=== PATIENT | female | born 1950 | race Caucasian/White ===

== ENCOUNTER → 2017-04-03 | Outpatient (CLI) | payer OTHER ==
--- NOTE | 2017-04-03 13:33 | MM ---
Reason for exam: history of breast cancer, mastectomy. Last mammogram was performed 1 year ago. History: Patient is postmenopausal and has history of breast cancer at age 62. Malignant US LT VAD breast biopsy of the left breast, April 28, 2013. Mastectomy of the left breast, 2012. Implants in both breasts, 1992. Excisional biopsy of both breasts, 1992. Physical Findings: Nurse did not find any significant physical abnormalities on exam. MG 3D Diag Mammo Imp W/Cad RT CC and MLO view(s) were taken of the right breast. Prior study comparison: April 02, 2016, right breast MG 3d diag mammo w/cad RT. There are scattered fibroglandular densities. No significant new findings when compared with previous films. These results were verbally communicated with the patient and result sheet given to the patient on 04/03/17. ASSESSMENT: Benign, BI-RAD 2 RECOMMENDATION: Follow-up diagnostic mammogram of the right breast in 1 year.
== END ==
LOC: RADMAMWWP 12:31
PROVIDERS: ATTEND Internal Medicine Hematology & Oncology
DX: Z85.3 Personal history of malignant neoplasm of breast (principal)
CPT/HCPCS: G0206; G0279

== ENCOUNTER → 2017-07-31 | Outpatient (CLI) | payer MEDICARE ==
--- NOTE | 2017-07-31 16:12 | BD ---
EXAMINATION TYPE: MG DEXA axial skeleton. DATE OF EXAM: 07/31/2017 COMPARISON: 2016 CLINICAL HISTORY: osteopenia Height: 5'2 Weight: 165 FRAX RISK QUESTIONS: Alcohol (3 or more units per day): no Family History (Parent hip fracture): no Glucocorticoids (More than 3mos): yes (Ex: prednisone, prednisolone, methylprednisolone, dexamethasone, and hydrocortisone). History of Fracture in Adulthood: no Secondary Osteoporosis: 1. Type 1 Diabetes: no 2. Hyperthyroidism: no 3. Menopause before 45: yes 4. Malnutrition: no 5. Chronic liver disease: no Rheumatoid Arthritis: no Current Tobacco Use: no RISK FACTORS HISTORY OF: Active: Diet low in dairy products/other sources of calcium: Postmenopausal woman: Poor Health: MEDICATIONS: Prednisone or other steroids: How Lon-6 years Additional Medications: COPD, blood pressure, breast cancer Additional History: COPD, breast cancer 2011, EXAM MEASUREMENTS: Bone mineral densitometry was performed using the [employer] System. Bone mineral density as measured about the Lumbar spine is: ----- L1-L4(G/cm2): 1.193 T Score Values are as follows: ----- L2: 0.1 ----- L3: 0.9 ----- L4: 0.2 ----- L1-L4: 0.1 Bone mineral density has: Increased 6.6% since study of: 07/30/2016 Bone mineral density about the R hip (g/cm2): 0.737 Bone mineral density about the L hip (g/cm2): 0.700 T Score values are as follows: -----R Neck: -2.2 -----L Neck: -2.4 -----R Total: -2.2 -----L Total: -2.2 Bone mineral density has: Decreased -2.3% since study of: 07/30/2016 IMPRESSION: Osteopenia (T Score between -2.5 and -1) as noted by T score values: Freeman Hips There is slightly increased risk of fracture and the patient may be considered for treatment. Re-Screen 2-5 years. NOTE: T-SCORE=SD OF THE YOUNG ADULT MEAN.
== END | disposition home or self-care (01) ==
LOC: RADBDWWP 12:56
PROVIDERS: ATTEND Internal Medicine Hematology & Oncology
DX: C50.912 Malignant neoplasm of unspecified site of left female breast (principal); M85.852 Other specified disorders of bone density and structure, left thigh; M85.851 Other specified disorders of bone density and structure, right thigh
CPT/HCPCS: 77080

== ENCOUNTER → 2017-12-24 | Outpatient (CLI) | payer MEDICARE ==
--- NOTE | 2017-12-24 12:33 | CT ---
EXAMINATION TYPE: CT chest wo con DATE OF EXAM: 12/24/2017 COMPARISON: NONE HISTORY: SOB Cough CT DLP: 358.[address] of the chest was performed with lung and mediastinal window settings submitted. The la ck of contrast limits evaluation of the vascular, mediastinal and parenchymal structures including th e upper abdomen. LUNGS: Moderate upper lobe emphysematous changes noted. Parenchymal scarring right upper lobe area of focal nodularity measuring approximately 7.4 mm. Short-term follow-up study is advised in 3 months. No additional nodularity seen. No evidence for focal consolidation or pleural effusion. MEDIASTINUM/MARILYN: Thoracic aorta is of normal caliber with limited evaluation given lack of contrast . The heart is not enlarged. No evidence for mediastinal mass. No lymph nodes greater than 1cm. UPPER ABDOMEN: No significant abnormality is seen. OTHER: No significant other abnormality. Bilateral breast implants in place. IMPRESSION: 1. Right upper lobe postinflammatory scarring with focal area of nodularity as discussed. Short-term follow-up is advised in 3 months. Any outside comparison studies would also be of value. 2. Moderate emphysematous changes.
[2017-12-25 13:16] LABS: Alt. alternata IgE Class CLASS 0; Alternaria alternata IgE <0.35 kU/L (<0.35); Asperg. fumagatus IgE 3.42 kU/L (<0.35); Asperg. fumagatus IgE Class CLASS II; Bermuda Grass IgE <0.35 kU/L (<0.35); Birch(Com.Silvr) IgE <0.35 kU/L (<0.35); Birch(Com.Silvr) IgE Class CLASS 0; Cat Epith & Dander IgE <0.35 kU/L (<0.35); Cat Epith & Dander IgE Class CLASS 0; Clad herbarum IgE <0.35 kU/L (<0.35); Cockroach IgE <0.35 kU/L (<0.35); Cottonwood IgE <0.35 kU/L (<0.35); Dermato. Pteronyssinus IgE <0.35 kU/L (<0.35); Dermato. farinae IgE <0.35 kU/L (<0.35); Dermato. farinae IgE Class CLASS 0; Dog Dander IgE <0.35 kU/L (<0.35); Elm IgE <0.35 kU/L (<0.35); Maple (Box Elder) IgE <0.35 kU/L (<0.35); Maple (Box Elder) IgE Class CLASS 0; Mountain Cedar IgE <0.35 kU/L (<0.35); Mountain Cedar IgE Class CLASS 0; Mouse Urine IgE Class CLASS 0; Nettle IgE <0.35 kU/L (<0.35); Nettle IgE Class CLASS 0; Oak IgE <0.35 kU/L (<0.35); Penicillium notatum IgE Class CLASS I; Rough Marshelder IgE <0.35 kU/L (<0.35); Rough Marshelder IgE Class CLASS 0; Timothy Grass IgE <0.35 kU/L (<0.35); White Ash IgE Class CLASS 0
[2017-12-26 12:24] LABS: Alpha 1 Anti-Trypsin 163 mg/dL (90 - 200)
== END | disposition home or self-care (01) ==
LOC: RADCTMAIN 11:36
PROVIDERS: ATTEND Internal Medicine Pulmonary Disease
DX: J43.9 Emphysema, unspecified (principal); J45.909 Unspecified asthma, uncomplicated; J98.4 Other disorders of lung
CPT/HCPCS: 36415; 71250; 82103; 82104; 82785; 86001; 86003; 86606; 86609

== ENCOUNTER → 2018-07-17 | Outpatient (CLI) | payer MEDICARE ==
--- NOTE | 2018-07-17 14:04 | MM ---
Reason for exam: additional evaluation requested from prior study. Last mammogram was performed 1 year and 3 months ago. History: Patient is postmenopausal and has history of breast cancer at age 62. Malignant US LT VAD breast biopsy of the left breast, April 28, 2013. Mastectomy of the left breast, 2012. Implants in both breasts, 1992. Excisional biopsy of both breasts, 1992. Physical Findings: Nurse did not find any significant physical abnormalities on exam. MG 3D Diag Mammo Imp W/Cad RT CC and MLO view(s) were taken of the right breast. Prior study comparison: April 03, 2017, right breast MG 3d diag mammo imp w/cad RT. April 02, 2016, right breast MG 3d diag mammo w/cad RT. There are scattered fibroglandular densities. Finding: There are typically benign vascular calcifications in the right breast. No significant changes in finding since April 03, 2017 and April 02, 2016. These results were verbally communicated with the patient and result sheet given to the patient on 07/17/18. ASSESSMENT: Benign, BI-RAD 2 RECOMMENDATION: Follow-up diagnostic mammogram of the right breast in 1 year.
== END ==
LOC: RADMAMWWP 12:26
PROVIDERS: ATTEND Family Medicine
DX: Z08 Encounter for follow-up examination after completed treatment for malignant neoplasm (principal); Z85.3 Personal history of malignant neoplasm of breast; Z90.10 Acquired absence of unspecified breast and nipple
CPT/HCPCS: 77065; G0279; 77061

== ENCOUNTER 2018-12-24 13:51 | Observation (INO) | payer MEDICARE ==
[2018-12-24] MEDS ORDERED: methylPREDNISolone SOD SUCCI 125 MG/2 ML VIAL IV STA (14:17)
[2018-12-24] MEDS ORDERED: IPRATROPIUM 0.5 MG/2.5 ML NEBU INHALATION STA (14:17)
--- NOTE | 2018-12-24 14:20 | ED ---
General Adult HPI - General Chief complaint: Shortness of Breath Stated complaint: SOB Time Seen by Provider: 12/24/18 13:55 Source: patient, RN notes reviewed Mode of arrival: wheelchair Limitations: no limitations - History of Present Illness Initial comments: This is a 68-year-old female presents emergency Department complaining of shortness of breath. Patient states for a week is been getting progressively worse per patient states she has a history of COPD. Patient states went to see her primary medical care doctor and anytime she moved from a sitting position it took about 15-20 minutes for her to recuperate from the difficulty breathing. Patient denies any fever chills or cough recently. Patient denies any chest pain. Patient denies any palpitations. Patient denies abdominal pain patient denies nausea vomiting diarrhea. Patient denies any lightheadedness dizziness or near syncopal episode. Patient denies any swelling to the legs or calf tenderness. Patient states she is on 4 L of oxygen at home normally. - Related Data Home Medications Medication Instructions Recorded Confirmed Albuterol Nebulized [Ventolin 2.5 mg INHALATION RT-QID 12/24/18 12/24/18 Nebulized] Albuterol Sulfate [Proair Hfa] 2 puff INHALATION RT-Q4H PRN 12/24/18 12/24/18 Budesonide [Pulmicort] 0.5 mg INHALATION RT-BID 12/24/18 12/24/18 Ferrous Sulfate [Feosol] 325 mg PO DAILY 12/24/18 12/24/18 Glycopyrrolate/Formoterol Fum 2 puff INHALATION RT-BID 12/24/18 12/24/18 [Bevespi Aerosphere Inhaler] Losartan/Hydrochlorothiazide 1 tab PO DAILY 12/24/18 12/24/18 [Losartan-Hctz 100-12.5 mg Tab] Montelukast [Singulair] 10 mg PO DAILY 12/24/18 12/24/18 Nebivolol [Bystolic] 5 mg PO DAILY 12/24/18 12/24/18 Pravastatin Sodium [Pravachol] 40 mg PO HS 12/24/18 12/24/18 Ranitidine HCl [Zantac] 150 mg PO BID 12/24/18 12/24/18 Solifenacin Succinate [Vesicare] 10 mg PO DAILY 12/24/18 12/24/18 amLODIPine [Norvasc] 5 mg PO DAILY 12/24/18 12/24/18 predniSONE 5 mg PO DAILY 12/24/18 12/24/18 Allergies Allergy/AdvReac Type Severity Reaction Status Date / Time No Known Allergies Allergy Verified 12/24/18 14:11 Review of Systems ROS Statement: Those systems with pertinent positive or pertinent negative responses have been documented in the HPI. ROS Other: All systems not noted in ROS Statement are negative. Past Medical History Past Medical History: Cancer, COPD, Hyperlipidemia, Hypertension Additional Past Medical History / Comment(s): BREAST CANCER History of Any Multi-Drug Resistant Organisms: None Reported Additional Past Surgical History / Comment(s): LEFT BREAST MASECTOMY Past Psychological History: No Psychological Hx Reported Smoking Status: Former smoker Past Alcohol Use History: None Reported, Occasional Past Drug Use History: None Reported General Exam - General Exam Comments Initial Comments: GENERAL: Patient is well-developed and well-nourished. Patient is nontoxic and well-h ydrated and is in moderate distress. ENT: Neck is soft and supple. No significant lymphadenopathy is noted. Oropharynx is clear. Moist mucous membranes. Neck has full range of motion without elic iting any pain. EYES: The sclera were anicteric and conjunctiva were pink and moist. Extraocular movements were intact and pupils were equal round and reactive to light. Eyelids were unremarkable. PULMONARY: Patient has diminished breath sounds throughout with occasional wheeze. CARDIOVASCULAR: There is a regular rate and rhythm without any murmurs gallops or rubs. ABDOMEN: Soft and nontender with normal bowel sounds. No palpable organomegaly was noted. There is no palpable pulsatile mass. SKIN: Skin is clear with no lesions or rashes and otherwise unremarkable. NEUROLOGIC: Patient is alert and oriented x3. Cranial nerves II through XII are grossly intact. Motor and sensory are also intact. Normal speech, volume and content. Symmetrical smile. MUSCULOSKELETAL: Normal extremities with adequate strength and full range of motion. No lower extremity swelling or edema. No calf tenderness. LYMPHATICS: No significant lymphadenopathy is noted PSYCHIATRIC: Normal psychiatric evaluation. Limitations: no limitations Course Vital Signs 12/24/18 12/24/18 12/24/18 13:54 14:45 14:53 Temperature 97.9 F Pulse Rate 94 84 86 Respiratory 28 H Rate Blood Pressure 145/81 O2 Sat by Pulse 88 L Oximetry 12/24/18 12/24/18 15:00 15:10 Temperature Pulse Rate 82 71 Respiratory 22 22 Rate Blood Pressure 125/80 137/102 O2 Sat by Pulse 95 96 Oximetry Medical Decision Making - Medical Decision Making EKG shows normal sinus rhythm at 75 bpm MA interval is on a 64 QRS is 92 QT interval 392 QTC is 437. Patient's EKG shows no ST segment elevation or depression or T wave abnormalities are noted. Patient received 3 breathing treatments emergency department as well as steroids. Patient felt improved but still was not close to her baseline according to her. Patient had a chest x-ray done showed no acute abnormality. I spoke with Dr. Sanchez he agreed to admit the patient admitted the patient I talib ontinue albuterol steroids on the floor. - Lab Data Result diagrams: 12/24/18 14:45 12/24/18 14:45 Lab Results 12/24/18 12/24/18 12/24/18 Range/Units 14:45 14:45 14:45 WBC 10.2 (3.8-10.6) k/uL RBC 4.28 (3.80-5.40) m/uL Hgb 13.0 (11.4-16.0) gm/dL Hct 42.1 (34.0-46.0) % MCV 98.4 (80.0-100.0) fL MCH 30.4 (25.0-35.0) pg MCHC 30.9 L (31.0-37.0) g/dL RDW 15.5 (11.5-15.5) % Plt Count 371 (150-450) k/uL Neutrophils % 84 % Lymphocytes % 7 % Monocytes % 6 % Eosinophils % 2 % Basophils % 0 % Neutrophils # 8.5 H (1.3-7.7) k/uL Lymphocytes # 0.7 L (1.0-4.8) k/uL Monocytes # 0.6 (0-1.0) k/uL Eosinophils # 0.2 (0-0.7) k/uL Basophils # 0.0 (0-0.2) k/uL Macrocytosis Slight PT (9.0-12.0) sec INR (<1.2) APTT (22.0-30.0) sec Sodium 136 L (137-145) mmol/L Potassium 4.5 (3.5-5.1) mmol/L Chloride 95 L (98-107) mmol/L Carbon Dioxide 30 (22-30) mmol/L Anion Gap 11 mmol/L BUN 15 (7-17) mg/dL Creatinine 0.43 L (0.52-1.04) mg/dL Est GFR (CKD-EPI)AfAm >90 (>60 ml/min/1.73 sqM) Est GFR (CKD-EPI)NonAf >90 (>60 ml/min/1.73 sqM) Glucose 127 H (74-99) mg/dL Calcium 10.2 (8.4-10.2) mg/dL Magnesium 1.7 (1.6-2.3) mg/dL Total Bilirubin 0.6 (0.2-1.3) mg/dL AST 20 (14-36) U/L ALT 22 (9-52) U/L Alkaline Phosphatase 65 (38-126) U/L Troponin I (0.000-0.034) ng/mL NT-Pro-B Natriuret Pep 109 pg/mL Total Protein 7.2 (6.3-8.2) g/dL Albumin 4.3 (3.5-5.0) g/dL 12/24/18 12/24/18 Range/Units 14:45 14:45 WBC (3.8-10.6) k/uL RBC (3.80-5.40) m/uL Hgb (11.4-16.0) gm/dL Hct (34.0-46.0) % MCV (80.0-100.0) fL MCH (25.0-35.0) pg MCHC (31.0-37.0) g/dL RDW (11.5-15.5) % Plt Count (150-450) k/uL Neutrophils % % Lymphocytes % % Monocytes % % Eosinophils % % Basophils % % Neutrophils # (1.3-7.7) k/uL Lymphocytes # (1.0-4.8) k/uL Monocytes # (0-1.0) k/uL Eosinophils # (0-0.7) k/uL Basophils # (0-0.2) k/uL Macrocytosis PT 10.5 (9.0-12.0) sec INR 1.0 (<1.2) APTT 23.7 (22.0-30.0) sec Sodium (137-145) mmol/L Potassium (3.5-5.1) mmol/L Chloride (98-107) mmol/L Carbon Dioxide (22-30) mmol/L Anion Gap mmol/L BUN (7-17) mg/dL Creatinine (0.52-1.04) mg/dL Est GFR (CKD-EPI)AfAm (>60 ml/min/1.73 sqM) Est GFR (CKD-EPI)NonAf (>60 ml/min/1.73 sqM) Glucose (74-99) mg/dL Calcium (8.4-10.2) mg/dL Magnesium (1.6-2.3) mg/dL Total Bilirubin (0.2-1.3) mg/dL AST (14-36) U/L ALT (9-52) U/L Alkaline Phosphatase (38-126) U/L Troponin I <0.012 (0.000-0.034) ng/mL NT-Pro-B Natriuret Pep pg/mL Total Protein (6.3-8.2) g/dL Albumin (3.5-5.0) g/dL Critical Care Time Critical Care Time: Yes Total Critical Care Time: 35 Disposition Clinical Impression: Acute exacerbation of chronic obstructive airways disease Disposition: ADMITTED IP TO THIS HOSP Referrals: Alex De La Torre MD [Primary Care Provider] - 1-2 days Time of Disposition: 16:08
[2018-12-24 15:06] LABS: Basophils % (A) 0 %; Eosinophils # (A) 0.2 k/uL (0-0.7); Eosinophils % (A) 2 %; HCT 42.1 % (34.0-46.0); Lymphocytes # (A) 0.7 k/uL (1.0-4.8); Lymphocytes % (A) 7 %; MCH 30.4 pg (25.0-35.0); MCHC 30.9 g/dL (31.0-37.0); MCV 98.4 fL (80.0-100.0); Macrocytosis Slight; Mean Platelet Volume 7.4; Monocytes # (A) 0.6 k/uL (0-1.0); Monocytes % (A) 6 %; Neutrophils # (A) 8.5 k/uL (1.3-7.7); Neutrophils % (A) 84 %; Platelet Count 371 k/uL (150-450); RBC 4.28 m/uL (3.80-5.40); RDW 15.5 % (11.5-15.5); WBC 10.2 k/uL (3.8-10.6)
[2018-12-24 15:15] LABS: ALT 22 U/L (9-52); AST 20 U/L (14-36); Albumin 4.3 g/dL (3.5-5.0); Alkaline Phosphatase 65 U/L (38-126); Anion Gap 11 mmol/L; Blood Urea Nitrogen 15 mg/dL (7-17); Calcium 10.2 mg/dL (8.4-10.2); Carbon Dioxide 30 mmol/L (22-30); Chloride 95 mmol/L (98-107); Glucose 127 mg/dL (74-99); Magnesium 1.7 mg/dL (1.6-2.3); Potassium 4.5 mmol/L (3.5-5.1); Sodium 136 mmol/L (137-145); Total Bilirubin 0.6 mg/dL (0.2-1.3); Total Protein 7.2 g/dL (6.3-8.2)
[2018-12-24 15:22] LABS: Partial Thromboplastin Time 23.7 sec (22.0-30.0); Prothrombin Time 10.5 sec (9.0-12.0)
--- NOTE | 2018-12-24 15:54 | XR ---
EXAMINATION TYPE: XR chest 2V DATE OF EXAM: 12/24/2018 COMPARISON: 12/24/2017 TECHNIQUE: PA and lateral views submitted. HISTORY: Difficulty breathing FINDINGS: Emphysematous changes are noted there is left hilar prominence pulmonary arteries are prominent corre late for pulmonary arterial hypertension. Atherosclerotic change aorta with ectasia. Biapical pleural thickening. Hypertrophic and degenerative change of the spine. Surgical clips are seen in the soft t issues of the axilla overlying the left breast tissue. IMPRESSION: 1. COPD with cardiomegaly and no definite acute infiltrate or overt failure. 2. Correlate for pulmonary arterial hypertension. 3. Prominence of the left suprahilar region may be related to atrial chamber enlargement. Correlation with CT scan could BE obtained as clinically warranted.
[2018-12-24] MEDS ORDERED: IPRATROPIUM-ALBUTEROL 3 ML NEB INHALATION PRN (16:08)
[2018-12-24] MEDS: methylPREDNISolone SOD SUCCI 125 MG/2 ML VIAL IV SCH (21:08)
[2018-12-24] MEDS: FAMOTIDINE 20 MG TAB PO SCH (21:08)
[2018-12-24] MEDS: PRAVASTATIN SODIUM 40 MG TAB PO SCH (21:08)
--- NOTE | 2018-12-24 21:37 | P.HPIM ---
History of Present Illness H&P Date: 12/24/18 Chief Complaint: Shortness of breath Patient is a 68 old female with a known history of COPD on 4 L home oxygen, steroid dependent, previous history of smoking, hypertension, hyperlipidemia and history of breast cancer status post mastectomy left came to ER with complaints of shortness of breath. Patient was seen at her primary care physician's office today. Patient was sent to ER due to worsening shortness of breath. Denied any fever or chills. Patient does have cough without sputum production. No commerce of chest pain. Denied any nausea vomiting or abdominal pain or diarrhea. Denied any dizziness or lightheadedness. No leg swelling. Patient was given breathing treatments 3 while in the ER with slight impairment of symptoms. Otherwise patient denied any recent illnesses. Follows with Dr. Estefania montero as an outpatient. Chest x-ray showed COPD with cardiomegaly. Correlate for pulmonary hypertension. EKG showed normal sinus rhythm. Review of Systems Constitutional: Patient denies any fever or chills . No generalized weakness or weight loss. Abdomen: Patient denied nausea vomiting and diarrhea and abdominal pain. Cardiovascular: Patient denies any chest pain or short of breath no palpitations. Respiratory: Agent does have shortness of breath. Cough without sputum production. Neurologic: Patient denied any numbness or tingling headache. Musculoskeletal: Patient denies any complaints of joint swelling or deformity. Skin: Negative Psychiatric: Negative Endocrine: No heat or cold intolerance. No recent weight gain. Genitourinary: No dysuria or hematuria. All other 14 point ROS negative except the above Past Medical History Past Medical History: Cancer, COPD, Hyperlipidemia, Hypertension Additional Past Medical History / Comment(s): BREAST CANCER History of Any Multi-Drug Resistant Organisms: None Reported Additional Past Surgical History / Comment(s): LEFT BREAST MASECTOMY Past Anesthesia/Blood Transfusion Reactions: No Reported Reaction Past Psychological History: No Psychological Hx Reported Smoking Status: Former smoker Past Alcohol Use History: None Reported, Occasional Past Drug Use History: None Reported Medications and Allergies Home Medications Medication Instructions Recorded Confirmed Type Albuterol Nebulized [Ventolin 2.5 mg INHALATION RT-QID 12/24/18 12/24/18 History Nebulized] Albuterol Sulfate [Proair Hfa] 2 puff INHALATION RT-Q4H PRN 12/24/18 12/24/18 History Budesonide [Pulmicort] 0.5 mg INHALATION RT-BID 12/24/18 12/24/18 History Ferrous Sulfate [Feosol] 325 mg PO DAILY 12/24/18 12/24/18 History Glycopyrrolate/Formoterol Fum 2 puff INHALATION RT-BID 12/24/18 12/24/18 History [Bevespi Aerosphere Inhaler] Losartan/Hydrochlorothiazide 1 tab PO DAILY 12/24/18 12/24/18 History [Losartan-Hctz 100-12.5 mg Tab] Montelukast [Singulair] 10 mg PO DAILY 12/24/18 12/24/18 History Nebivolol [Bystolic] 5 mg PO DAILY 12/24/18 12/24/18 History Pravastatin Sodium [Pravachol] 40 mg PO HS 12/24/18 12/24/18 History Ranitidine HCl [Zantac] 150 mg PO BID 12/24/18 12/24/18 History Solifenacin Succinate [Vesicare] 10 mg PO DAILY 12/24/18 12/24/18 History amLODIPine [Norvasc] 5 mg PO DAILY 12/24/18 12/24/18 History predniSONE 5 mg PO DAILY 12/24/18 12/24/18 History Allergies Allergy/AdvReac Type Severity Reaction Status Date / Time No Known Allergies Allergy Verified 12/24/18 14:11 Physical Exam Vitals: Vital Signs Temp Pulse Pulse Resp BP BP Pulse Ox 12/24/18 20:01 97.9 F 67 17 116/64 94 L 12/24/18 17:30 98.1 F 80 87 16 129/83 132/81 98 12/24/18 17:00 86 112/81 92 L 12/24/18 16:30 82 105/76 94 L 12/24/18 16:00 75 121/83 94 L 12/24/18 15:30 80 137/102 96 12/24/18 15:10 71 22 137/102 96 12/24/18 15:00 82 22 125/80 95 12/24/18 14:53 86 12/24/18 14:45 84 12/24/18 13:54 97.9 F 94 28 H 145/81 88 L Intake and Output 12/24/18 12/24/18 12/24/18 06:59 14:59 22:59 Other: Voiding Method Bedside Commode Weight 77.111 kg PHYSICAL EXAMINATION: Patient is lying in the bed comfortably, no acute distress, awake alert and oriented.. HEENT: Normocephalic. Neck is supple. Pupils reactive. Nostrils clear. Oral cavity is moist. Ears reveal no drainage. Neck reveals no JVD, carotid bruits, or thyromegaly. CHEST EXAMINATION: Trachea is central. Barrel chest. Symmetrical expansion. Bilateral diminished air entry and minimal wheezing. CARDIAC: Normal S1, S2 with no gallops. No murmurs ABDOMEN: Soft. Bowel sounds normal. No organomegaly. No abdominal bruits. Extremities: reveal no edema. No clubbing or cyanosis Neurologically awake, alert, oriented x3 with well-coordinated movements. No focal deficits noted Skin: No rash or skin lesions. Psychiatric: Coperative. Nonsuicidal Musculoskeletal: No joint swelling or deformity. Normal range of motion. Results CBC & Chem 7: 12/24/18 14:45 12/24/18 14:45 Labs: Abnormal Lab Results - Last 24 Hours (Table) 12/24/18 12/24/18 Range/Units 14:45 14:45 MCHC 30.9 L (31.0-37.0) g/dL Neutrophils # 8.5 H (1.3-7.7) k/uL Lymphocytes # 0.7 L (1.0-4.8) k/uL Sodium 136 L (137-145) mmol/L Chloride 95 L (98-107) mmol/L Creatinine 0.43 L (0.52-1.04) mg/dL Glucose 127 H (74-99) mg/dL Thrombosis Risk Factor Assmnt - DVT/VTE Prophylaxis DVT/VTE Prophylaxis: Pharmacologic Prophylaxis ordered - Choose All That Apply Any of the Below Risk Factors Present?: Yes Each Risk Factor Represents 2 Points: Age 61-74 years Thrombosis Risk Factor Assessment Total Risk Factor Score: 2 Thrombosis Risk Factor Assessment Level: Low Risk Assessment and Plan Assessment: Acute COPD exacerbation Acute on chronic hypoxic respiratory failure Chronic hypoxic respiratory failure secondary to COPD. Oxygen and steroid dependent History of breast cancer status post left mastectomy Hyperlipidemia Hypertension Previous history of smoking DVT prophylaxis Plan: Patient will be continued on DuoNeb's and IV steroids in the form of methylprednisolone 60 mg every 6 hourly. Continue with Pulmicort and oxygen therapy. Current with home blood pressure medications and follow closely. Pulmonary will be consulted. Further recommendations based on the clinical course. Time with Patient: Greater than 30
[2018-12-24] MEDS: IPRATROPIUM-ALBUTEROL 3 ML NEB INHALATION SCH (21:42)
[2018-12-24] MEDS: HEPARIN SODIUM,PORCINE 5,000 UNIT/ML 1 ML VIAL SQ SCH (23:46)
[2018-12-25] MEDS: IPRATROPIUM-ALBUTEROL 3 ML NEB INHALATION SCH ×6 (00:06→20:25)
[2018-12-25] MEDS: methylPREDNISolone SOD SUCCI 125 MG/2 ML VIAL IV SCH ×4 (01:32→17:37)
[2018-12-25] MEDS ORDERED: FORMOTEROL FUMARATE 20 MCG/2 ML NEBU INHALATION SCH (08:00)
[2018-12-25] MEDS ORDERED: IPRATROPIUM 0.5 MG/2.5 ML NEBU INHALATION SCH (08:00)
[2018-12-25] MEDS: FAMOTIDINE 20 MG TAB PO SCH ×2 (08:57→20:49)
[2018-12-25] MEDS: amLODIPine 5 MG TAB PO SCH (08:57)
[2018-12-25] MEDS: LOSARTAN 50 MG TAB PO SCH (08:57)
[2018-12-25] MEDS: FERROUS SULFATE 325 MG TAB PO SCH (08:57)
[2018-12-25] MEDS: HEPARIN SODIUM,PORCINE 5,000 UNIT/ML 1 ML VIAL SQ SCH ×2 (08:57→15:37)
[2018-12-25] MEDS: LOSARTAN-HCTZ 50-12.5 MG 1 EACH TAB PO SCH (09:04)
[2018-12-25] MEDS: TROSPIUM CHLORIDE 20 MG TABLET PO SCH ×2 (09:04→20:49)
[2018-12-25] MEDS: MONTELUKAST 10 MG TAB PO SCH (09:04)
[2018-12-25] MEDS: NEBIVOLOL 5 MG TAB PO SCH (09:06)
[2018-12-25] MEDS: BUDESONIDE 0.5 MG/2 ML NEBU INHALATION SCH ×2 (09:10→20:25)
[2018-12-25] MEDS ORDERED: ALBUTEROL NEBULIZED 2.5 MG/3 ML INHALATION PRN (10:19)
--- NOTE | 2018-12-25 11:09 | CONS ---
CONSULTATION Danielle Christian is a 68-year-old female who presented to the ED with increasing shortness of breath of about one weeks duration. She was seen by primary care physician and admitted for further treatment. She had been tripoding and had to brace herself as she was unable to take deep breaths. She was unable to complete her sentence. She was wheezing. She denied any fever or chills. Her past medical history is positive for severe asthma with allergic etiology. She is allergic to Aspergillus and Penicillium. She also has significant severe COPD as well. Her post-bronchodilator FEV1 is only 0.39 L, which is 18% of predicted. She has had partial response to anti IgE treatment with Xolair as an outpatient. PAST MEDICAL HISTORY: Her past medical history is positive for severe persistent asthma with COPD, history of breast cancer, previous left breast mastectomy, history of hyperlipidemia, hypertension. SOCIAL HISTORY: Patient is a former heavy smoker. She does not drink alcohol excessively. FAMILY HISTORY: Family history was reviewed and is noncontributory. REVIEW OF SYSTEMS: Review of systems is noncontributory. PHYSICAL EXAMINATION: She was lying in bed. She was on 4 L nasal cannula. She was using accessory muscles of respiration. She had audible wheezing. Her blood pressure is 119/77, respiratory rate of 18, pulse rate of 82, temperature 97.3, O2 saturation on 4 L by nasal cannula is 94%. When she came to the ER, her oxygen saturation was only 88% while on 4 L by nasal cannula. Her chest x-ray shows some prominence of the left suprahilar region by apical pleural thickening and emphysematous changes. IMPRESSION AT THIS TIME: 1. Acute respiratory failure secondary to acute exacerbation of severe persistent asthma. 2. Baseline severe chronic obstructive pulmonary disease. 3. Previous nicotine dependence. 4. Previous history of breast cancer. At this point in time, keep her on IV and aerosolized steroids, leukotriene receptor antagonist. GI and DVT prophylaxis. Check a CT scan of the chest to further evaluate the left hilum. We will follow this patient closely with you. I would like to thank you for allowing us the privilege of participating in her care. We will follow her closely during the hospital stay. MMODL / IJN: [id number] /
[2018-12-25] MEDS ORDERED: LORazepam 2 MG/ML INJ IV STA (12:03)
[2018-12-25] MEDS: ACETAMINOPHEN TAB 325 MG TAB PO PRN (12:20)
--- NOTE | 2018-12-25 14:59 | CT ---
EXAMINATION TYPE: CT chest wo con DATE OF EXAM: 12/25/2018 COMPARISON: 12/24/2017 HISTORY: 68-year-old female COPD TECHNIQUE: Contiguous axial scanning of the chest without IV contrast. Coronal and sagittal reconstru ctions performed. CT DLP: 292.9 mGycm Automated exposure control for dose reduction was used. FINDINGS: Bilateral breast implants. Heart normal size without pericardial effusion. Extensive coronary vessel calcifications are present. Mild aneurysm ascending aorta 4.0 cm is unchanged. Moderate atherosclerotic arch calcifications with conventional branching anatomy. Borderline to mildly enlarged caliber of the main right and the pulmo nary arteries and 2.5 cm may reflect underlying pulmonary artery hypertension. No thoracic lymphadenopathy by CT size criteria. Evaluation of the lungs shows advanced emphysema with some linear scarring along the right upper lobe . Left apical pleural parenchymal scarring. 8 mm right upper lobe pulmonary nodule axial image 15 and some 9 mm focal nodular thickening along th e fissure, axial image 16 are both unchanged from 12/24/2017 suggesting benign etiologies. Tiny 3 mm peripheral right lower lung pulmonary nodule in the middle lobe is unchanged. No consolidation or pleural effusion. Small hiatal hernia. Visualized upper abdomen shows moderate atherosclerotic calcifications in the ab dominal aorta without definite additional abnormality allowing for motion artifacts. Bones: Degenerative changes of the right shoulder. No osseous destructive process. IMPRESSION: 1. COPD WITH ADVANCED EMPHYSEMA AND LIKELY UNDERLYING PULMONARY ARTERIAL HYPERTENSION. 2. STABLE LINEAR SCARRING AND ASSOCIATED 9 AND 8 MM NODULARITY IN THE RIGHT UPPER LOBE, UNCHANGED FOR A YEAR SUGGESTING A BENIGN ETIOLOGY. 3. NO ACUTE PULMONARY PROCESS. 4. MILD ANEURYSM ASCENDING AORTA 4.0 CM, UNCHANGED. 5. SMALL HIATAL HERNIA.
--- NOTE | 2018-12-25 15:27 | P.PN ---
Subjective Progress Note Date: 12/25/18 Interval history:Patient is a 68 old female with a known history of COPD on 4 L home oxygen, steroid dependent, previous history of smoking, hypertension, hyperlipidemia and history of breast cancer status post mastectomy left came to ER with complaints of shortness of breath. Patient was seen at her primary care physician's office today. Patient was sent to ER due to worsening shortness of breath. Denied any fever or chills. Patient does have cough without sputum production. No commerce of chest pain. Denied any nausea vomiting or abdominal pain or diarrhea. Denied any dizziness or lightheadedness. No leg swelling. Patient was given breathing treatments 3 while in the ER with slight impairment of symptoms. Otherwise patient denied any recent illnesses. Follows with Dr. Estefania montero as an outpatient. Chest x-ray showed COPD with cardiomegaly. Correlate for pulmonary hypertension. EKG showed normal sinus rhythm. 12/25/18 maintained on nebulized bronchodilators, IV steroids. short of breath with conversing, maintaining O2 sats in the mid 90s on 4 L nasal cannula. Audible wheezing. Afebrile. Objective - Vital Signs Vital signs: Vital Signs Temp 97.4 F L 12/25/18 14:00 Pulse 98 12/25/18 14:00 Resp 16 12/25/18 14:00 BP 111/57 12/25/18 14:00 Pulse Ox 97 12/25/18 14:00 Intake & Output 12/24/18 12/25/18 12/25/18 18:59 06:59 18:59 Intake Total 100 1000 Balance 100 1000 Weight 77.111 kg Intake: Oral 100 1000 Other: Voiding Method Bedside Commode Bedside Commode # Voids 1 - Exam Patient is sitting up in the bed, respiratory effort increased HEENT: Normocephalic. Neck is supple. Pupils reactive. Oral cavity is moist. Neck reveals no JVD, carotid bruits, or thyromegaly. CHEST EXAMINATION: Trachea is central. Barrel chest. Symmetrical expansion. Bilateral diminished air entry, expiratory wheezing. CARDIAC: Normal S1, S2 with no gallops. No murmurs ABDOMEN: Soft. Bowel sounds normal. No organomegaly. No abdominal bruits. Extremities: no edema. No clubbing or cyanosis Neurologically awake, alert, oriented x3 with well-coordinated movements. No focal deficits noted Skin: No rash or skin lesions. - Labs CBC & Chem 7: 12/24/18 14:45 12/24/18 14:45 Labs: Abnormal Lab Results - Last 24 Hours (Table) 12/24/18 12/24/18 Range/Units 14:45 14:45 MCHC 30.9 L (31.0-37.0) g/dL Neutrophils # 8.5 H (1.3-7.7) k/uL Lymphocytes # 0.7 L (1.0-4.8) k/uL Sodium 136 L (137-145) mmol/L Chloride 95 L (98-107) mmol/L Creatinine 0.43 L (0.52-1.04) mg/dL Glucose 127 H (74-99) mg/dL Assessment and Plan Assessment: Acute COPD exacerbation Acute on chronic hypoxic respiratory failure Chronic hypoxic respiratory failure secondary to COPD. Oxygen and steroid dependent. Wears 4 L nasal cannula O2 at home. History of breast cancer status post left mastectomy Hyperlipidemia Hypertension Previous history of smoking DVT prophylaxis Plan: Continue on current medication regime ,monitoring and symptomatic treatment. Maintain nebulized bronchodilators, IV/ aersol steroids, Pulmicort. Chest CT pending. Follow closely with pulmonary. Further recommendations to follow. The impression and plan of care has been dictated as directed. : I performed a history and examination of this patient, discussed the same with the dictator. I agree with the dictator's note ,documented as a scribe. Any additional findings or plans will be noted.
[2018-12-25] MEDS: PRAVASTATIN SODIUM 40 MG TAB PO SCH (20:49)
[2018-12-26] MEDS: HEPARIN SODIUM,PORCINE 5,000 UNIT/ML 1 ML VIAL SQ SCH ×4 (00:07→23:07)
[2018-12-26] MEDS: methylPREDNISolone SOD SUCCI 125 MG/2 ML VIAL IV SCH ×5 (00:07→23:07)
[2018-12-26] MEDS: ACETAMINOPHEN TAB 325 MG TAB PO PRN ×2 (06:01→20:25)
[2018-12-26] MEDS: BUDESONIDE 0.5 MG/2 ML NEBU INHALATION SCH ×2 (07:45→21:15)
[2018-12-26] MEDS: IPRATROPIUM-ALBUTEROL 3 ML NEB INHALATION SCH ×4 (07:45→21:15)
[2018-12-26] MEDS: LOSARTAN 50 MG TAB PO SCH (08:02)
[2018-12-26] MEDS: NEBIVOLOL 5 MG TAB PO SCH (08:02)
[2018-12-26] MEDS: MONTELUKAST 10 MG TAB PO SCH (08:02)
[2018-12-26] MEDS: amLODIPine 5 MG TAB PO SCH (08:02)
[2018-12-26] MEDS: TROSPIUM CHLORIDE 20 MG TABLET PO SCH ×2 (08:02→21:31)
[2018-12-26] MEDS: FAMOTIDINE 20 MG TAB PO SCH ×2 (08:02→21:32)
[2018-12-26] MEDS: FERROUS SULFATE 325 MG TAB PO SCH (08:02)
[2018-12-26] MEDS: LOSARTAN-HCTZ 50-12.5 MG 1 EACH TAB PO SCH (08:02)
[2018-12-26 13:23] LABS: Anion Gap 9 mmol/L; Blood Urea Nitrogen 19 mg/dL (7-17); Calcium 9.9 mg/dL (8.4-10.2); Carbon Dioxide 32 mmol/L (22-30); Chloride 92 mmol/L (98-107); Glucose 163 mg/dL (74-99); Sodium 133 mmol/L (137-145)
[2018-12-26 13:36] LABS: Basophils % (A) 0 %; Eosinophils # (A) 0.1 k/uL (0-0.7); Eosinophils % (A) 1 %; HGB 11.3 gm/dL (11.4-16.0); Lymphocytes # (A) 0.3 k/uL (1.0-4.8); Lymphocytes % (A) 2 %; MCH 31.1 pg (25.0-35.0); MCHC 31.4 g/dL (31.0-37.0); MCV 99.2 fL (80.0-100.0); Macrocytosis Slight; Mean Platelet Volume 7.1; Monocytes # (A) 0.4 k/uL (0-1.0); Monocytes % (A) 3 %; Neutrophils # (A) 14.8 k/uL (1.3-7.7); Neutrophils % (A) 94 %; Platelet Count 391 k/uL (150-450); RBC 3.63 m/uL (3.80-5.40); RDW 15.6 % (11.5-15.5); WBC 15.7 k/uL (3.8-10.6)
--- NOTE | 2018-12-26 16:39 | P.PN ---
Subjective Progress Note Date: 12/26/18 12/26/2018: Patient seen and examined for follow up. The patient states she is feeling better than yesterday. She does not feel ready to go home. She is asking if there is a blood test for cancer. This is discussed with the patient at length, we also discuss her CT chest results. She will need follow up for her pulmonary nodules. She has known emphysema. Her last PFT done 12/2017 shows very severe COPD with an FEV1 19% of predicted. She does wear oxygen at home at 4 L NC ATC. She is currently on 4L NC with O2 saturation 93%. Objective - Vital Signs Vital signs: Vital Signs Temp 97.8 F 12/26/18 14:40 Pulse 102 H 12/26/18 14:40 Resp 17 12/26/18 14:40 BP 117/75 12/26/18 14:40 Pulse Ox 92 L 12/26/18 14:40 Intake & Output 12/25/18 12/26/18 12/26/18 18:59 06:59 18:59 Intake Total 1000 400 Balance 1000 400 Intake: Oral 1000 400 Other: Voiding Method Bedside Commode Bedside Commode # Voids 1 2 - Exam General: Alert and oriented x 3, NAD, some conversational dyspnea CV: RRR, s1/s2 Lungs: diminished breath sounds with expiratory wheezing Abd: soft, NT/ND, +BS Ext: No edema - Labs CBC & Chem 7: 12/26/18 12:46 12/26/18 12:46 Labs: Abnormal Lab Results - Last 24 Hours (Table) 12/26/18 12/26/18 Range/Units 12:46 12:46 WBC 15.7 H (3.8-10.6) k/uL RBC 3.63 L (3.80-5.40) m/uL Hgb 11.3 L (11.4-16.0) gm/dL RDW 15.6 H (11.5-15.5) % Neutrophils # 14.8 H (1.3-7.7) k/uL Lymphocytes # 0.3 L (1.0-4.8) k/uL Sodium 133 L (137-145) mmol/L Chloride 92 L (98-107) mmol/L Carbon Dioxide 32 H (22-30) mmol/L BUN 19 H (7-17) mg/dL Glucose 163 H (74-99) mg/dL Microbiology - Last 24 Hours (Table) 12/24/18 14:45 Blood Culture - Preliminary Blood No Growth after 24 hours Assessment and Plan Assessment: Acute on chronic hypoxic respiratory failure Acute exacerbation of very severe COPD, FEV1 19% of predicted Acute exacerbation of severe persistent asthma Pulmonary nodules Previous tobacco dependence, in remission History of breast cancer Dyslipidemia Hypertension O2 to maintain saturation > or = 90%, currently on 4L NC which is her baseline Pulmicort, Duonebs, Perforomist Singulair Solumedrol taper GI and DVT prophylaxis IS and pulmonary hygiene PT and OT Repeat CT chest in 3-6 months for pulm nodules
--- NOTE | 2018-12-26 17:29 | P.PN ---
Subjective Progress Note Date: 12/26/18 Interval history:Patient is a 68 old female with a known history of COPD on 4 L home oxygen, steroid dependent, previous history of smoking, hypertension, hyperlipidemia and history of breast cancer status post mastectomy left came to ER with complaints of shortness of breath. Patient was seen at her primary care physician's office today. Patient was sent to ER due to worsening shortness of breath. Denied any fever or chills. Patient does have cough without sputum production. No commerce of chest pain. Denied any nausea vomiting or abdominal pain or diarrhea. Denied any dizziness or lightheadedness. No leg swelling. Patient was given breathing treatments 3 while in the ER with slight impairment of symptoms. Otherwise patient denied any recent illnesses. Follows with Dr. Estefania montero as an outpatient. Chest x-ray showed COPD with cardiomegaly. Correlate for pulmonary hypertension. EKG showed normal sinus rhythm. 12/25/18 maintained on nebulized bronchodilators, IV steroids. short of breath with conversing, maintaining O2 sats in the mid 90s on 4 L nasal cannula. Audible wheezing. Afebrile. 12/26/2018 breathing easier today, without accessory muscle use. Wheezing but not audible. Nonproductive cough. Continues on 4 L nasal cannula( baseline), maintaining O2 sats in the low 90s. Ambulating to and from bathroom with reported increased exertional shortness of breath. Chest CT reporting advanced emphysema, possibly underlying pulmonary arterial hypertension, nodules in the right upper lobe unchanged suggestive of benign etiology, no acute pulmonary process, mild aneurysm ascending aorta 4.0 cm unchanged, small hiatal hernia. Denies chest pain, palpitations. Afebrile. Objective - Vital Signs Vital signs: Vital Signs Temp 97.8 F 12/26/18 14:40 Pulse 96 12/26/18 16:52 Resp 17 12/26/18 16:00 BP 117/75 12/26/18 14:40 Pulse Ox 92 L 12/26/18 14:40 Intake & Output 12/25/18 12/26/18 12/26/18 18:59 06:59 18:59 Intake Total 1000 400 Balance 1000 400 Intake: Oral 1000 400 Other: Voiding Method Bedside Commode Bedside Commode # Voids 1 2 - Exam Patient is sitting up in the bed, HEENT: Normocephalic. Neck is supple. Pupils reactive. Oral cavity is moist. Neck reveals no JVD, carotid bruits, or thyromegaly. CHEST EXAMINATION: Trachea is central. Barrel chest. Symmetrical expansion. Bilateral diminished air entry, expiratory wheezing. CARDIAC: Normal S1, S2 with no gallops. No murmurs ABDOMEN: Soft. Bowel sounds normal. No organomegaly. No abdominal bruits. Extremities: no edema. No clubbing or cyanosis Neurologically awake, alert, oriented x3 with well-coordinated movements. No focal deficits noted Skin: No rash or skin lesions. - Labs CBC & Chem 7: 12/26/18 12:46 12/26/18 12:46 Labs: Abnormal Lab Results - Last 24 Hours (Table) 12/26/18 12/26/18 Range/Units 12:46 12:46 WBC 15.7 H (3.8-10.6) k/uL RBC 3.63 L (3.80-5.40) m/uL Hgb 11.3 L (11.4-16.0) gm/dL RDW 15.6 H (11.5-15.5) % Neutrophils # 14.8 H (1.3-7.7) k/uL Lymphocytes # 0.3 L (1.0-4.8) k/uL Sodium 133 L (137-145) mmol/L Chloride 92 L (98-107) mmol/L Carbon Dioxide 32 H (22-30) mmol/L BUN 19 H (7-17) mg/dL Glucose 163 H (74-99) mg/dL Microbiology - Last 24 Hours (Table) 12/24/18 14:45 Blood Culture - Preliminary Blood No Growth after 48 hours Assessment and Plan Assessment: Acute COPD exacerbation Acute on chronic hypoxic respiratory failure Chronic hypoxic respiratory failure secondary to COPD. Oxygen and steroid dependent. Wears 4 L nasal cannula O2 at home. History of breast cancer status post left mastectomy Hyperlipidemia Hypertension Previous history of smoking DVT prophylaxis Pulmonary nodules, further outpatient follow-up mild aneurysm ascending aorta 4.0 cm unchanged, further outpatient follow-up Plan: Continue on current medication regime ,monitoring and symptomatic treatment. Maintain nebulized bronchodilators, IV steroids, Pulmicort. IV steroid taper as per pulmonary. PT/OT. Aggressive pulmonary toileting. Further recommendations to follow. The impression and plan of care has been dictated as directed. : I performed a history and examination of this patient, discussed the same with the dictator. I agree with the dictator's note ,documented as a scribe. Any additional findings or plans will be noted.
[2018-12-26] MEDS ORDERED: TEMAZEPAM 15 MG CAP PO PRN (20:02)
[2018-12-26 21:01] VITALS: RESP 18
[2018-12-26] MEDS: FORMOTEROL FUMARATE 20 MCG/2 ML NEBU INHALATION SCH (21:15)
[2018-12-26] MEDS: PRAVASTATIN SODIUM 40 MG TAB PO SCH (21:31)
[2018-12-27] MEDS: methylPREDNISolone SOD SUCCI 125 MG/2 ML VIAL IV SCH ×2 (05:36→12:10)
[2018-12-27 08:12] VITALS: BP 128/81; TEMP 98.6
[2018-12-27] MEDS: LOSARTAN-HCTZ 50-12.5 MG 1 EACH TAB PO SCH (08:41)
[2018-12-27] MEDS: FERROUS SULFATE 325 MG TAB PO SCH (08:41)
[2018-12-27] MEDS: TROSPIUM CHLORIDE 20 MG TABLET PO SCH (08:41)
[2018-12-27] MEDS: LOSARTAN 50 MG TAB PO SCH (08:41)
[2018-12-27] MEDS: HEPARIN SODIUM,PORCINE 5,000 UNIT/ML 1 ML VIAL SQ SCH (08:41)
[2018-12-27] MEDS: MONTELUKAST 10 MG TAB PO SCH (08:41)
[2018-12-27] MEDS: NEBIVOLOL 5 MG TAB PO SCH (08:41)
[2018-12-27] MEDS: FAMOTIDINE 20 MG TAB PO SCH (08:42)
[2018-12-27] MEDS: amLODIPine 5 MG TAB PO SCH (08:42)
--- NOTE | 2018-12-27 09:49 | P.PN ---
Subjective Progress Note Date: 12/27/18 12/27/2018: Patient seen and examined for follow-up. Patient states her breathing is at baseline. She was able to ambulate in the hallway today. She is hoping to go home today. Objective - Vital Signs Vital signs: Vital Signs Temp 98.6 F 12/27/18 07:00 Pulse 90 12/27/18 07:00 Resp 18 12/27/18 07:00 BP 128/81 12/27/18 07:00 Pulse Ox 97 12/27/18 07:00 Intake & Output 12/26/18 12/27/18 12/27/18 18:59 06:59 18:59 Intake Total 240 240 Output Total 200 Balance -200 240 240 Intake: Oral 240 240 Output: Urine 200 Other: Voiding Method Bedside Commode # Voids 1 1 - Exam General: Alert and oriented x 3, NAD, some conversational dyspnea CV: RRR, s1/s2 Lungs: diminished breath sounds with expiratory wheezing Abd: soft, NT/ND, +BS Ext: No edema - Labs CBC & Chem 7: 12/26/18 12:46 12/26/18 12:46 Labs: Abnormal Lab Results - Last 24 Hours (Table) 12/26/18 12/26/18 Range/Units 12:46 12:46 WBC 15.7 H (3.8-10.6) k/uL RBC 3.63 L (3.80-5.40) m/uL Hgb 11.3 L (11.4-16.0) gm/dL RDW 15.6 H (11.5-15.5) % Neutrophils # 14.8 H (1.3-7.7) k/uL Lymphocytes # 0.3 L (1.0-4.8) k/uL Sodium 133 L (137-145) mmol/L Chloride 92 L (98-107) mmol/L Carbon Dioxide 32 H (22-30) mmol/L BUN 19 H (7-17) mg/dL Glucose 163 H (74-99) mg/dL Microbiology - Last 24 Hours (Table) 12/24/18 14:45 Blood Culture - Preliminary Blood No Growth after 48 hours Assessment and Plan Assessment: Acute on chronic hypoxic respiratory failure Acute exacerbation of very severe COPD, FEV1 19% of predicted Acute exacerbation of severe persistent asthma Pulmonary nodules Previous tobacco dependence, in remission History of breast cancer Dyslipidemia Hypertension O2 to maintain saturation > or = 90%, currently on 4L NC which is her baseline Pulmicort, Duonebs, Perforomist Singulair Solumedrol taper - change to PO Prednisone taper GI and DVT prophylaxis IS and pulmonary hygiene PT and OT Repeat CT chest in 3-6 months for pulm nodules OK to DC from pulmonary standpoint. Follow up in 2-3 days.
[2018-12-27] MEDS: FORMOTEROL FUMARATE 20 MCG/2 ML NEBU INHALATION SCH (10:03)
[2018-12-27] MEDS: IPRATROPIUM-ALBUTEROL 3 ML NEB INHALATION SCH (10:03)
[2018-12-27] MEDS: BUDESONIDE 0.5 MG/2 ML NEBU INHALATION SCH (10:03)
[2018-12-27 10:28] VITALS: PULSE 90
== END 2018-12-27 13:04 | disposition home health service (06) ==
LOC: EC 13:51 → 4SSUR 16:08
PROVIDERS: ADMIT Internal Medicine; ATTEND Internal Medicine
DX: J96.21 Acute and chronic respiratory failure with hypoxia (principal); J45.51 Severe persistent asthma with (acute) exacerbation; J43.9 Emphysema, unspecified; I10 Essential (primary) hypertension; E78.5 Hyperlipidemia, unspecified; I71.4 Abdominal aortic aneurysm, without rupture; F17.201 Nicotine dependence, unspecified, in remission; Z99.81 Dependence on supplemental oxygen; Z85.3 Personal history of malignant neoplasm of breast; Z90.12 Acquired absence of left breast and nipple; Z79.899 Other long term (current) drug therapy; Z79.52 Long term (current) use of systemic steroids; Z79.51 Long term (current) use of inhaled steroids; Z88.0 Allergy status to penicillin; Z91.048 Other nonmedicinal substance allergy status
CPT/HCPCS: 96376 ×4; 96372 ×4; 96375; 96374; 99291; 36415; 94640 ×8; 94760; 93005; 97162; 83880; 80053; 80048; 83735; 84484; 85025 ×2; 85610; 85730; 87040; 71046; 71250; G0378 ×4; J2060; J1644 ×4; J2930 ×4

== ENCOUNTER 2019-01-02 15:12 | Inpatient (IN) | payer MEDICARE ==
[2019-01-02] MEDS ORDERED: methylPREDNISolone SOD SUCCI 125 MG/2 ML VIAL IV STA (15:46)
[2019-01-02] MEDS ORDERED: IPRATROPIUM 0.5 MG/2.5 ML NEBU INHALATION STA (15:46)
[2019-01-02] MEDS ORDERED: ALBUTEROL NEBULIZED 2.5 MG/3 ML INHALATION STA (15:46)
--- NOTE | 2019-01-02 15:49 | ED ---
General Adult HPI - General Chief complaint: Shortness of Breath Stated complaint: SOB Time Seen by Provider: 01/02/19 15:39 Source: patient, RN notes reviewed, old records reviewed Mode of arrival: wheelchair Limitations: no limitations - History of Present Illness Initial comments: 68-year-old female history of COPD on 4 L home oxygen presents for evaluation of cough and dyspnea. Patient was recently admitted with COPD exacerbation. She was treated inpatient and discharged on steroids. She states that she is currently taking 40 mg of oral prednisone and when she decreased her dose from 50 mg she did notice a worsening of her symptoms. She was seen by her primary care physician who recommended she present to the emergency department for ree valuation. Patient denies fever or chills. She denies central radiating chest pain. Denies unilateral lower leg pain or swelling. No history DVT or PE. - Related Data Home Medications Medication Instructions Recorded Confirmed Albuterol Nebulized [Ventolin 2.5 mg INHALATION RT-QID 12/24/18 01/02/19 Nebulized] Budesonide [Pulmicort] 0.5 mg INHALATION RT-BID 12/24/18 01/02/19 Ferrous Sulfate [Iron (65 MG 325 mg PO DAILY 12/24/18 01/02/19 Elemental)] Glycopyrrolate/Formoterol Fum 2 puff INHALATION RT-BID 12/24/18 01/02/19 [Bevespi Aerosphere Inhaler] Losartan/Hydrochlorothiazide 1 tab PO DAILY 12/24/18 01/02/19 [Losartan-Hctz 100-12.5 mg Tab] Nebivolol [Bystolic] 5 mg PO DAILY 12/24/18 01/02/19 Pravastatin Sodium [Pravachol] 40 mg PO HS 12/24/18 01/02/19 Ranitidine HCl [Zantac] 150 mg PO BID 12/24/18 01/02/19 Solifenacin Succinate [Vesicare] 10 mg PO DAILY 12/24/18 01/02/19 amLODIPine [Norvasc] 5 mg PO DAILY 12/24/18 01/02/19 predniSONE 5 mg PO DAILY 12/24/18 01/02/19 Allergies Allergy/AdvReac Type Severity Reaction Status Date / Time codeine Allergy Unknown Verified 01/02/19 15:22 Review of Systems ROS Statement: Those systems with pertinent positive or pertinent negative responses have been documented in the HPI. ROS Other: All systems not noted in ROS Statement are negative. Past Medical History Past Medical History: Cancer, COPD, Hyperlipidemia, Hypertension Additional Past Medical History / Comment(s): BREAST CANCER History of Any Multi-Drug Resistant Organisms: None Reported Additional Past Surgical History / Comment(s): LEFT BREAST MASECTOMY Past Anesthesia/Blood Transfusion Reactions: No Reported Reaction Past Psychological History: No Psychological Hx Reported Smoking Status: Former smoker Past Alcohol Use History: None Reported, Occasional Past Drug Use History: None Reported General Exam Limitations: no limitations General appearance: alert, in no apparent distress Head exam: Present: atraumatic, normocephalic Eye exam: Present: normal appearance, PERRL ENT exam: Present: normal exam Neck exam: Present: normal inspection Respiratory exam: Present: respiratory distress, wheezes, decreased breath sounds, prolonged expiratory Cardiovascular Exam: Present: regular rate, normal rhythm GI/Abdominal exam: Present: soft. Absent: distended, tenderness, guarding Extremities exam: Present: normal inspection, normal capillary refill. Absent: pedal edema Neurological exam: Present: alert, oriented X3, CN II-XII intact. Absent: motor sensory deficit Psychiatric exam: Present: normal affect, normal mood Skin exam: Present: warm, dry, intact. Absent: cyanosis, diaphoretic Course Vital Signs 01/02/19 01/02/19 01/02/19 15:19 16:00 16:10 Temperature 97.8 F Pulse Rate 70 72 70 Respiratory 24 20 20 Rate Blood Pressure 119/64 O2 Sat by Pulse 90 L Oximetry 01/02/19 17:22 Temperature 97.2 F L Pulse Rate 74 Respiratory 18 Rate Blood Pressure 108/71 O2 Sat by Pulse 95 Oximetry EKG Findings - EKG Comments: EKG Findings:: EKG: Sinus rhythm ventricular rate 69, IN interval 142, QRS duration 86, QTC 430 ms no ischemic changes. Medical Decision Making - Medical Decision Making 68-year-old female history of COPD presents from primary care office for reevaluation of COPD exacerbation. Patient does have decreased air entry bilaterally, prolonged expiration with wheezing. She is on home oxygen, mildly hypoxic in the emergency department. Chest x-ray shows findings consistent with COPD, no focal pneumonia. Mild leukocytosis 13.5 F the patient is currently on oral steroids. She has mild hyperkalemia 5.4, CO2 of 31 consistent with chronic CO2 retention. Troponin and BNP are negative. Patient will be admitted for treatment of COPD exacerbation. Case discussed with the admitting physician. - Lab Data Result diagrams: 01/02/19 16:50 01/02/19 15:50 Lab Results 01/02/19 01/02/19 01/02/19 Range/Units 15:50 15:50 15:50 WBC (3.8-10.6) k/uL RBC (3.80-5.40) m/uL Hgb (11.4-16.0) gm/dL Hct (34.0-46.0) % MCV (80.0-100.0) fL MCH (25.0-35.0) pg MCHC (31.0-37.0) g/dL RDW (11.5-15.5) % Plt Count (150-450) k/uL Neutrophils % % Lymphocytes % % Monocytes % % Eosinophils % % Basophils % % Neutrophils # (1.3-7.7) k/uL Lymphocytes # (1.0-4.8) k/uL Monocytes # (0-1.0) k/uL Eosinophils # (0-0.7) k/uL Basophils # (0-0.2) k/uL Macrocytosis PT 10.3 (9.0-12.0) sec INR 1.0 (<1.2) APTT 22.0 (22.0-30.0) sec Sodium 132 L (137-145) mmol/L Potassium 5.4 H (3.5-5.1) mmol/L Chloride 93 L (98-107) mmol/L Carbon Dioxide 31 H (22-30) mmol/L Anion Gap 8 mmol/L BUN 26 H (7-17) mg/dL Creatinine 0.54 (0.52-1.04) mg/dL Est GFR (CKD-EPI)AfAm >90 (>60 ml/min/1.73 sqM) Est GFR (CKD-EPI)NonAf >90 (>60 ml/min/1.73 sqM) Glucose 151 H (74-99) mg/dL Calcium 9.6 (8.4-10.2) mg/dL Magnesium 2.0 (1.6-2.3) mg/dL Total Bilirubin 0.8 (0.2-1.3) mg/dL AST 24 (14-36) U/L ALT 37 (9-52) U/L Alkaline Phosphatase 43 (38-126) U/L Troponin I (0.000-0.034) ng/mL NT-Pro-B Natriuret Pep 86 pg/mL Total Protein 6.8 (6.3-8.2) g/dL Albumin 4.1 (3.5-5.0) g/dL 01/02/19 01/02/19 Range/Units 15:50 16:50 WBC 13.5 H (3.8-10.6) k/uL RBC 4.06 (3.80-5.40) m/uL Hgb 12.8 (11.4-16.0) gm/dL Hct 40.2 (34.0-46.0) % MCV 98.8 (80.0-100.0) fL MCH 31.5 (25.0-35.0) pg MCHC 31.9 (31.0-37.0) g/dL RDW 15.8 H (11.5-15.5) % Plt Count 394 (150-450) k/uL Neutrophils % 94 % Lymphocytes % 3 % Monocytes % 2 % Eosinophils % 1 % Basophils % 0 % Neutrophils # 12.6 H (1.3-7.7) k/uL Lymphocytes # 0.4 L (1.0-4.8) k/uL Monocytes # 0.2 (0-1.0) k/uL Eosinophils # 0.2 (0-0.7) k/uL Basophils # 0.0 (0-0.2) k/uL Macrocytosis Slight PT (9.0-12.0) sec INR (<1.2) APTT (22.0-30.0) sec Sodium (137-145) mmol/L Potassium (3.5-5.1) mmol/L Chloride (98-107) mmol/L Carbon Dioxide (22-30) mmol/L Anion Gap mmol/L BUN (7-17) mg/dL Creatinine (0.52-1.04) mg/dL Est GFR (CKD-EPI)AfAm (>60 ml/min/1.73 sqM) Est GFR (CKD-EPI)NonAf (>60 ml/min/1.73 sqM) Glucose (74-99) mg/dL Calcium (8.4-10.2) mg/dL Magnesium (1.6-2.3) mg/dL Total Bilirubin (0.2-1.3) mg/dL AST (14-36) U/L ALT (9-52) U/L Alkaline Phosphatase (38-126) U/L Troponin I <0.012 (0.000-0.034) ng/mL NT-Pro-B Natriuret Pep pg/mL Total Protein (6.3-8.2) g/dL Albumin (3.5-5.0) g/dL Disposition Clinical Impression: Acute exacerbation of chronic obstructive airways disease Disposition: ADMITTED IP TO THIS HOSP Condition: Stable Is patient prescribed a controlled substance at d/c from ED?: No Referrals: Alex De La Torre MD [Primary Care Provider] - 1-2 days Decision to Admit Reason: Admit from EC Decision Date: 01/02/19 Decision Time: 17:57
[2019-01-02 16:19] LABS: ALT 37 U/L (9-52); AST 24 U/L (14-36); Albumin 4.1 g/dL (3.5-5.0); Alkaline Phosphatase 43 U/L (38-126); Anion Gap 8 mmol/L; Blood Urea Nitrogen 26 mg/dL (7-17); Calcium 9.6 mg/dL (8.4-10.2); Carbon Dioxide 31 mmol/L (22-30); Chloride 93 mmol/L (98-107); Glucose 151 mg/dL (74-99); Potassium 5.4 mmol/L (3.5-5.1); Sodium 132 mmol/L (137-145); Total Bilirubin 0.8 mg/dL (0.2-1.3); Total Protein 6.8 g/dL (6.3-8.2)
--- NOTE | 2019-01-02 16:38 | XR ---
EXAMINATION: XR chest 2V DATE AND TIME: 01/02/2019 4:30 PM CLINICAL INDICATION: PHH; difficulty breathing TECHNIQUE: Departmental protocol COMPARISON: 12/24/2018 FINDINGS: The lungs are clear of acute pulmonary process bilaterally. Pleural spaces are negative. The previously cardiac silhouette enlargement, COPD with biapical pleural-parenchymal change, enlarge d pulmonary arteries, and atherosclerotic changes with ectasia of the thoracic aorta are redemonstrat ed. IMPRESSION: STABLE CHEST RADIOGRAPH APPEARANCE; NO ACUTE PULMONARY/PLEURAL PROCESS.
[2019-01-02 16:40] LABS: Prothrombin Time 10.3 sec (9.0-12.0)
[2019-01-02 17:02] LABS: Basophils % (A) 0 %; Eosinophils # (A) 0.2 k/uL (0-0.7); Eosinophils % (A) 1 %; HCT 40.2 % (34.0-46.0); HGB 12.8 gm/dL (11.4-16.0); Lymphocytes # (A) 0.4 k/uL (1.0-4.8); Lymphocytes % (A) 3 %; MCH 31.5 pg (25.0-35.0); MCHC 31.9 g/dL (31.0-37.0); MCV 98.8 fL (80.0-100.0); Macrocytosis Slight; Mean Platelet Volume 7.1; Monocytes # (A) 0.2 k/uL (0-1.0); Monocytes % (A) 2 %; Neutrophils # (A) 12.6 k/uL (1.3-7.7); Neutrophils % (A) 94 %; Platelet Count 394 k/uL (150-450); RBC 4.06 m/uL (3.80-5.40); RDW 15.8 % (11.5-15.5); WBC 13.5 k/uL (3.8-10.6)
[2019-01-02] MEDS ORDERED: SODIUM CHLORIDE 0.9% 500 ML 500 ML IV ONE (17:41)
[2019-01-02] MEDS ORDERED: IPRATROPIUM-ALBUTEROL 3 ML NEB INHALATION PRN (17:54)
[2019-01-02] MEDS: SODIUM CHLORIDE 0.9% 1,000 ML IV SCH ×2 (18:58→23:56)
[2019-01-02 19:52] VITALS: BMI 28.3
[2019-01-02] MEDS: IPRATROPIUM-ALBUTEROL 3 ML NEB INHALATION SCH (20:24)
[2019-01-02] MEDS: methylPREDNISolone SOD SUCCI 125 MG/2 ML VIAL IV SCH (23:56)
[2019-01-03] MEDS: methylPREDNISolone SOD SUCCI 125 MG/2 ML VIAL IV SCH ×2 (05:43→12:34)
[2019-01-03] MEDS: IPRATROPIUM-ALBUTEROL 3 ML NEB INHALATION SCH ×4 (07:40→19:36)
[2019-01-03] MEDS ORDERED: LOSARTAN 50 MG TAB PO SCH (12:00)
[2019-01-03] MEDS: amLODIPine 5 MG TAB PO SCH (12:35)
[2019-01-03] MEDS: FERROUS SULFATE 325 MG TAB PO SCH (12:35)
[2019-01-03] MEDS: FAMOTIDINE 20 MG TAB PO SCH ×2 (12:35→20:01)
[2019-01-03] MEDS: TROSPIUM CHLORIDE 20 MG TABLET PO SCH ×2 (12:37→20:01)
[2019-01-03] MEDS: NEBIVOLOL 5 MG TAB PO SCH (12:37)
[2019-01-03] MEDS: HYDROCHLOROTHIAZIDE 12.5 MG CAP PO SCH (12:42)
[2019-01-03] MEDS ORDERED: FLUCONAZOLE 100 MG TAB PO ONE (17:30)
[2019-01-03] MEDS: INSULIN ASPART (NovoLOG) 100 UNIT/ML VIAL SQ SCH ×2 (17:34→21:45)
[2019-01-03] MEDS: ENOXAPARIN 40 MG/0.4 ML SYRINGE SQ SCH (18:01)
--- NOTE | 2019-01-03 18:12 | HP ---
HISTORY AND PHYSICAL DATE OF ADMISSION: January 02, 2019. DATE OF SERVICE: January 02, 2019. PRESENTING COMPLAINT: Short of breath. HISTORY OF PRESENTING COMPLAINT: This is a very pleasant 68 -year-old patient who follows with Dr. De La Torre out of [place]. Followed by leather belt maker, Dr. Kieran Aguirre. Chronic stable medical conditions include hypertension, hyperlipidemia, urinary incontinence, osteoarthritis, and is on home oxygen 4 L. The patient was in the hospital about a week ago with COPD exacerbation and was being tapered down on her prednisone and when it got down to 40 mg the patient became more short of breath and wheezing, got a minimal cough. No sputum though does feel rattly in the chest. No fever. No chills. Appetite is down. Does feel tired and run down. Readmitted for the same. The patient has been constipated for a week. REVIEW OF SYSTEMS: CONSTITUTIONAL: Tired. HEENT as above. RESPIRATORY as above. CARDIOVASCULAR: None. GASTROINTESTINAL: None. GENITOURINARY: Incontinence. MUSCULOSKELETAL: Arthritic pain in many joints. DERMATOLOGICAL, HEMATOLOGIC, LYMPHATIC: none. PSYCHIATRY none. NEUROLOGICAL none. PAST MEDICAL HISTORY: Of hypertension, hyperlipidemia, COPD, breast cancer, urine incontinence, osteoarthritis, chronic hypoxic respiratory failure. PAST SURGICAL HISTORY: Adenoidectomy, appendectomy, tonsillectomy, left mastectomy, cataract surgery. SOCIAL HISTORY: The patient smoked a pack and half for close to 50 years, stopped about 8 years ago. No alcohol. Lives with her . FAMILY HISTORY: Reviewed noncontributory to presentation. HOME MEDICATIONS: 1. Prednisone 5 mg a day. 2. Norvasc 5 mg a day. 3. VESIcare 10 mg a day. 4. Zantac 150 mg b.i.d. 5. Pravachol 40 mg q.h.s. 6. Bystolic 5 mg a day. 7. Losartan hydrochlorothiazide 100/12.5 one tab p.o. daily. 8. 2 puffs b.i.d. 9. Iron 325 p.o. daily. 10.Pulmicort 0.5 p.o. b.i.d. 11.Ventolin 2.5 q.i.d. ALLERGIES: CODEINE. PHYSICAL EXAMINATION: VITAL SIGNS: Temperature 97.8, pulse 70, respiration 24, blood pressure 109/64, pulse ox 90 percent on 4 L. GENERAL APPEARANCE: Average build, sitting up, tired-appearing. EYES: Pupils equal. Conjunctivae normal. HEENT: External appearance of nose and ears normal. Oral cavity white spots in the pharynx. NECK: JVD not raised. Mass not palpable. RESPIRATORY: Effort increased. LUNGS: Diminished breath sounds. Prolonged expiration and wheezing. CARDIOVASCULAR: 1st and 2nd sounds normal. No edema. ABDOMEN: Soft, nontender. Liver and spleen not palpable. LYMPHATICS: No lymph nodes palpable in the neck and axilla. PSYCHIATRY: Alert and oriented x3. Mood and affect normal. NEUROLOGICAL: Pupils equal. Cranial nerves grossly intact. Power and sensation grossly intact. MUSCULOSKELETAL: Evidence of severe osteoarthritis especially hands and knees. INVESTIGATIONS: White count 13.5, hemoglobin 12.8, platelets 394. Potassium 5.4, BUN 26, creatinine 0.54. EKG tracing personally reviewed by me shows normal sinus rhythm. Chest x-ray film personally reviewed by me shows no obvious infiltrate, some calcification aortic knuckle. ASSESSMENT: 1. Acute severe chronic obstructive pulmonary disease exacerbation in an ex-smoker. 2. Acute tracheobronchitis. 3. Oropharyngeal candidiasis. 4. Essential hypertension. 5. Hyperlipidemia. 6. Chronic urine incontinence. 7. Primary osteoarthritis. 8. Chronic hypoxic respiratory failure on 4 L of oxygen. 9. Acute hypoxic respiratory failure from underlying chronic obstructive pulmonary disease. PLAN: Patient is started on bronchodilators every 4 hours inhaled and IV steroids. Home medications are resumed. Blood pressure is running a bit on the lower side and also hypokalemic. We will hold off Cozaar for right now. Also given IV fluids. Lovenox for DVT prophylaxis. Also start the patient on Diflucan. The patient told to use saltwater warm water gargle and also clean her dentures. Care was discussed in detail. Questions were answered. Copy Dr. De La Torre out of [place]. MMODL / IJN: [id number] /
[2019-01-03] MEDS: BUDESONIDE 1 MG/2 ML NEBU INHALATION SCH (19:36)
[2019-01-03] MEDS: PRAVASTATIN SODIUM 40 MG TAB PO SCH (20:01)
[2019-01-03 21:01] LABS: Glucose,Whole Blood 179 mg/dL (75-99)
[2019-01-03] MEDS: methylPREDNISolone SOD SUCCI 40 MG/ML 1 ML VIAL IV SCH (23:35)
[2019-01-04] MEDS: SODIUM CHLORIDE 0.9% 1,000 ML IV SCH ×2 (04:38→17:37)
[2019-01-04 06:58] LABS: Glucose,Whole Blood 147 mg/dL (75-99)
[2019-01-04 07:52] LABS: Basophils % (A) 0 %; Eosinophils % (A) 0 %; HCT 35.4 % (34.0-46.0); HGB 10.8 gm/dL (11.4-16.0); Hypochromasia Slight; Lymphocytes # (A) 0.3 k/uL (1.0-4.8); Lymphocytes % (A) 2 %; MCH 30.5 pg (25.0-35.0); MCHC 30.7 g/dL (31.0-37.0); MCV 99.6 fL (80.0-100.0); Macrocytosis Slight; Monocytes # (A) 0.4 k/uL (0-1.0); Monocytes % (A) 3 %; Neutrophils # (A) 13.9 k/uL (1.3-7.7); Neutrophils % (A) 95 %; Platelet Count 387 k/uL (150-450); RBC 3.55 m/uL (3.80-5.40); RDW 15.9 % (11.5-15.5); WBC 14.7 k/uL (3.8-10.6)
[2019-01-04] MEDS: amLODIPine 5 MG TAB PO SCH (07:57)
[2019-01-04] MEDS: FERROUS SULFATE 325 MG TAB PO SCH (07:57)
[2019-01-04] MEDS: NEBIVOLOL 5 MG TAB PO SCH (07:57)
[2019-01-04] MEDS: methylPREDNISolone SOD SUCCI 40 MG/ML 1 ML VIAL IV SCH ×3 (07:57→23:32)
[2019-01-04] MEDS: HYDROCHLOROTHIAZIDE 12.5 MG CAP PO SCH (07:57)
[2019-01-04] MEDS: FAMOTIDINE 20 MG TAB PO SCH ×2 (07:57→21:22)
[2019-01-04] MEDS: TROSPIUM CHLORIDE 20 MG TABLET PO SCH ×2 (07:57→21:22)
[2019-01-04] MEDS: ENOXAPARIN 40 MG/0.4 ML SYRINGE SQ SCH (07:58)
[2019-01-04 07:59] LABS: ALT 39 U/L (9-52); AST 23 U/L (14-36); Albumin 3.2 g/dL (3.5-5.0); Alkaline Phosphatase 38 U/L (38-126); Anion Gap 6 mmol/L; Blood Urea Nitrogen 13 mg/dL (7-17); Calcium 8.8 mg/dL (8.4-10.2); Carbon Dioxide 29 mmol/L (22-30); Chloride 100 mmol/L (98-107); Glucose 149 mg/dL (74-99); Sodium 135 mmol/L (137-145); Total Bilirubin 0.5 mg/dL (0.2-1.3); Total Protein 5.5 g/dL (6.3-8.2)
[2019-01-04] MEDS: INSULIN ASPART (NovoLOG) 100 UNIT/ML VIAL SQ SCH ×4 (08:03→21:22)
[2019-01-04] MEDS: BUDESONIDE 1 MG/2 ML NEBU INHALATION SCH ×2 (08:04→19:59)
[2019-01-04] MEDS: IPRATROPIUM-ALBUTEROL 3 ML NEB INHALATION SCH ×4 (08:04→19:59)
[2019-01-04 11:58] LABS: Glucose,Whole Blood 135 mg/dL (75-99)
[2019-01-04] MEDS ORDERED: FLUCONAZOLE 100 MG TAB PO SCH (12:00)
--- NOTE | 2019-01-04 16:39 | PN ---
PROGRESS NOTE DATE OF SERVICE: 01/04/19. PRESENTING COMPLAINT: Short of breath. INTERVAL HISTORY: Patient admitted with COPD exacerbation, acute tracheobronchitis and oropharyngeal candidiasis. Breathing is better. Cough is better. Just started tolerating a diet. Sitting up. Family at the bedside. Has been out of bed. REVIEW OF SYSTEMS: Done for constitutional, cardiovascular, GI, pulmonary; relevant findings as above. CURRENT MEDICATIONS: Reviewed that include DuoNeb, Diflucan and IV Solu-Medrol. PHYSICAL EXAMINATION: Temperature 98.5, pulse 99, respirations 16, blood pressure 120/72, pulse ox 92 percent on 3.5 L. GENERAL APPEARANCE: Sitting up, less tired appearing. EYES: Pupils equal. Conjunctivae normal. NECK: JVD not raised. Mass not palpable. RESPIRATORY: Effort increased. LUNGS: Diminished breath sounds, prolonged expiration. CARDIOVASCULAR: First and second sounds, no edema. ABDOMEN: Soft, nontender. Liver and spleen not palpable. PSYCHIATRY: Alert and oriented x3. Mood and affect with normal. ORAL CAVITY: Greatly improved white spots. INVESTIGATIONS: White count 14.7, hemoglobin 10.8, potassium 4.0. ASSESSMENT: 1. Acute severe chronic obstructive pulmonary disease exacerbation in an ex-smoker. 2. Acute tracheobronchitis. 3. Oropharyngeal candidiasis. 4. Essential hypertension. 5. Hyperlipidemia. 6. Chronic urine incontinence. 7. Primary osteoarthritis. 8. Chronic hypoxic respiratory failure on 4 L oxygen. 9. Acute hypoxic respiratory failure from underlying chronic obstructive pulmonary disease. PLAN: Patient is improving. Continue current medication and treatment plan. Expect the patient to be in the hospital for another day or 2. Care was discussed with the family at the bedside. MMODL / IJN: [id number] /
[2019-01-04 17:14] LABS: Glucose,Whole Blood 154 mg/dL (75-99)
[2019-01-04] MEDS: FLUCONAZOLE 100 MG TAB PO SCH (17:38)
--- NOTE | 2019-01-04 18:52 | CONS ---
CONSULTATION Danielle Christian is a 68-year-old female who presented to the ER at [facility] with cough and increasing dyspnea of about 3-4 days duration. She had been on prednisone at 40 mg and started to worsen. She subsequently was seen in the ER and admitted for further evaluation and management. PAST MEDICAL HISTORY: Positive for severe asthma with allergic etiology in part due to ALLERGY TO ASPERGILLUS AND PENICILLIUM. History of severe COPD for which her post-bronchodilator FEV1 is only 0.39 L, history all breast cancer, previous left mastectomy. SOCIAL HISTORY: Patient is a former heavy smoker. Does not drink alcohol excessively. FAMILY HISTORY: Noncontributory. MEDICATIONS: Prior to admission were prednisone, amlodipine, VESIcare, Zantac, Pravachol, Bystolic, losartan with hydrochlorothiazide, Bevespi, ferrous sulfate, Pulmicort and albuterol. PHYSICAL EXAMINATION: Respiratory rate is 16, pulse rate 99, temperature 98.5, blood pressure 124/72, O2 saturation on 3.5 L by nasal cannula is 92%. HEENT reveals pupils are equal. Chest with decreased breath sounds. Prolonged expiration. Faint expiratory wheeze on forced expiration. Cardiovascular system reveals S1, S2. Abdomen is soft. There is no pedal edema. White count is 14.7, hemoglobin of 10.8. Eosinophilic count of 0.2 thousand. Sodium 135, potassium 4, chloride 100, bicarb 29, BUN 13, creatinine 0.42, albumin is 3.2. Chest x-ray shows biapical pleural-parenchymal change in large pulmonary arteries, but no acute process. IMPRESSION: At this time: 1. Severe asthma with chronic obstructive pulmonary disease with acute exacerbation. 2. Acute respiratory failure. 3. Medical debility. 4. Mild protein calorie malnutrition. At this point in time, keep her on IV and aerosolized steroids along with bronchodilators. Keep her on GI and DVT prophylaxis. Increase her activity level. Continue supplemental oxygen. Depending on how she does we should make further changes to her care. MMODL / IJN: [id number] /
[2019-01-04] MEDS ORDERED: LORazepam 0.5 MG TAB PO STA (20:42)
[2019-01-04 20:47] LABS: Glucose,Whole Blood 146 mg/dL (75-99)
[2019-01-04] MEDS: PRAVASTATIN SODIUM 40 MG TAB PO SCH (21:22)
[2019-01-05] MEDS: SODIUM CHLORIDE 0.9% 1,000 ML IV SCH ×2 (01:39→12:18)
[2019-01-05] MEDS: IPRATROPIUM-ALBUTEROL 3 ML NEB INHALATION SCH ×4 (06:47→21:05)
[2019-01-05] MEDS: BUDESONIDE 1 MG/2 ML NEBU INHALATION SCH ×2 (06:48→21:05)
[2019-01-05 07:02] LABS: Glucose,Whole Blood 158 mg/dL (75-99)
[2019-01-05] MEDS: INSULIN ASPART (NovoLOG) 100 UNIT/ML VIAL SQ SCH ×4 (07:43→20:59)
[2019-01-05] MEDS: FAMOTIDINE 20 MG TAB PO SCH ×2 (07:44→20:59)
[2019-01-05] MEDS: FLUCONAZOLE 100 MG TAB PO SCH (07:44)
[2019-01-05] MEDS: amLODIPine 5 MG TAB PO SCH (07:44)
[2019-01-05] MEDS: FERROUS SULFATE 325 MG TAB PO SCH (07:44)
[2019-01-05] MEDS: ENOXAPARIN 40 MG/0.4 ML SYRINGE SQ SCH (07:44)
[2019-01-05] MEDS: methylPREDNISolone SOD SUCCI 40 MG/ML 1 ML VIAL IV SCH ×2 (07:44→16:37)
[2019-01-05] MEDS: NEBIVOLOL 5 MG TAB PO SCH (07:45)
[2019-01-05] MEDS: TROSPIUM CHLORIDE 20 MG TABLET PO SCH ×2 (07:45→20:59)
[2019-01-05] MEDS: HYDROCHLOROTHIAZIDE 12.5 MG CAP PO SCH (07:46)
[2019-01-05 12:05] LABS: Glucose,Whole Blood 143 mg/dL (75-99)
--- NOTE | 2019-01-05 14:25 | P.PN ---
Subjective Progress Note Date: 01/05/19 01/05/2019: Patient seen and examined. Patient is on 3 L nasal cannula. She states she is feeling better overall. She is asking to get up out of bed and walk around. She also states that she is tired and would like to take a nap this afternoon. She has been hemodynamically stable and afebrile. Chest x-ray shows no acute process. Objective - Vital Signs Vital signs: Vital Signs Temp 98 F 01/05/19 12:39 Pulse 88 01/05/19 13:11 Resp 18 01/05/19 12:39 BP 148/84 01/05/19 12:39 Pulse Ox 94 L 01/05/19 12:39 Intake & Output 01/04/19 01/05/19 01/05/19 18:59 06:59 18:59 Intake Total 840 900 Output Total 400 Balance 440 900 Intake: Intake, IV Titration 600 650 Amount Sodium Chloride 0.9% 1, 600 650 000 ml @ 75 mls/hr IV . [id number] JENNIFER Rx#:[id number] Oral 240 250 Output: Urine 400 Other: Voiding Method Bedside Commode Bedside Commode Bedside Commode # Voids 3 2 - Exam General: Alert and oriented x 3, NAD CV: RRR, s1/s2 Lungs: diminished breath sounds with expiratory wheezing Abd: soft, NT/ND, +BS Ext: No edema - Labs CBC & Chem 7: 01/04/19 07:03 01/04/19 07:03 Labs: Abnormal Lab Results - Last 24 Hours (Table) 01/04/19 01/04/19 01/05/19 Range/Units 17:12 20:46 07:01 POC Glucose (mg/dL) 154 H 146 H 158 H (75-99) mg/dL 01/05/19 Range/Units 12:04 POC Glucose (mg/dL) 143 H (75-99) mg/dL Assessment and Plan Assessment: Acute on chronic hypoxic respiratory failure Acute exacerbation of very severe COPD, FEV1 19% of predicted Acute exacerbation of severe persistent asthma Pulmonary nodules Previous tobacco dependence, in remission History of breast cancer Dyslipidemia Hypertension O2 to maintain saturation > or = 90%, currently on 4L NC which is her baseline Pulmicort, Duonebs, Perforomist Singulair Solumedrol taper GI and DVT prophylaxis IS and pulmonary hygiene PT and OT Repeat CT chest in 3-6 months for pulm nodules Pulmonary rehab as outpatient
--- NOTE | 2019-01-05 15:26 | PN ---
PROGRESS NOTE DATE OF SERVICE: 01/05/2019 PRESENTING COMPLAINT: Short of breath. INTERVAL HISTORY: Patient admitted with COPD exacerbation, acute tracheobronchitis and oropharyngeal candidiasis. Raspiness of the chest has improved. Eating better. The patient does get though easily short winded. Sitting up on bed, has not been much out of bed. REVIEW OF SYSTEMS: Done for constitutional, cardiovascular, GI, pulmonary; relevant findings as above. CURRENT MEDICATIONS: Reviewed that include DuoNeb, oral Diflucan, Perforomist, IV Solu-Medrol, saline. PHYSICAL EXAMINATION: Temperature 98, pulse 88, respiratory 18, blood pressure 140/84, pulse ox 94% on 4 L. GENERAL APPEARANCE: Sitting up, awake. EYES: Pupils equal, conjunctivae normal. NECK: JVD not raised. Mass not palpable. RESPIRATORY: Effort increased. LUNGS: Diminished breath sounds, prolonged expiration. CARDIOVASCULAR: First and second sounds normal, no edema. ABDOMEN: Soft, nontender. Liver and spleen not palpable. PSYCHIATRY: Alert and oriented x3, mood and affect normal. Oral cavity white spots have cleared up. INVESTIGATIONS: Accu-Cheks noted. ASSESSMENT: 1. There is acute severe chronic obstructive pulmonary disease exacerbation in an ex- smoker, slow to respond. Patient seemed to have advanced disease. 2. Acute tracheobronchitis, improving. 3. Acute oral pharyngeal candidiasis is improving. 4. Essential hypertension. 5. Hyperlipidemia. 6. Chronic urine incontinence. 7. Primary osteoarthritis. 8. Chronic hypoxic respiratory failure on 4 L of oxygen at home. 9. Acute hypoxic respiratory failure underlying chronic obstructive pulmonary disease on presentation. PLAN: The patient is slow to respond. I did tell her to do some breathing exercises, ambulatory. Told her to cut back a bit on the oxygen, DC the IV fluids. MMODL / IJN: [id number] /
[2019-01-05] MEDS: guaiFENesin 600 MG TABLET.ER PO SCH ×2 (15:44→20:59)
[2019-01-05 17:13] LABS: Glucose,Whole Blood 155 mg/dL (75-99)
[2019-01-05 20:04] LABS: Glucose,Whole Blood 216 mg/dL (75-99)
[2019-01-05] MEDS: PRAVASTATIN SODIUM 40 MG TAB PO SCH (20:58)
[2019-01-05] MEDS ORDERED: MONTELUKAST 10 MG TAB PO SCH (21:00)
[2019-01-05] MEDS ORDERED: LORazepam 0.5 MG TAB PO ONE (21:00)
[2019-01-05] MEDS: FORMOTEROL FUMARATE 20 MCG/2 ML NEBU INHALATION SCH (21:05)
[2019-01-06] MEDS: methylPREDNISolone SOD SUCCI 40 MG/ML 1 ML VIAL IV SCH ×3 (00:19→15:15)
[2019-01-06 04:50] VITALS: RESP 16; TEMP 98.1
[2019-01-06 06:17] VITALS: BP 131/74
[2019-01-06 07:26] LABS: Glucose,Whole Blood 187 mg/dL (75-99)
[2019-01-06] MEDS: INSULIN ASPART (NovoLOG) 100 UNIT/ML VIAL SQ SCH ×2 (07:41→11:22)
[2019-01-06] MEDS: ENOXAPARIN 40 MG/0.4 ML SYRINGE SQ SCH (07:42)
[2019-01-06] MEDS: FAMOTIDINE 20 MG TAB PO SCH (07:44)
[2019-01-06] MEDS: FERROUS SULFATE 325 MG TAB PO SCH (07:44)
[2019-01-06] MEDS: amLODIPine 5 MG TAB PO SCH (07:44)
[2019-01-06] MEDS: guaiFENesin 600 MG TABLET.ER PO SCH (07:44)
[2019-01-06] MEDS: HYDROCHLOROTHIAZIDE 12.5 MG CAP PO SCH (07:45)
[2019-01-06] MEDS: TROSPIUM CHLORIDE 20 MG TABLET PO SCH (07:46)
[2019-01-06] MEDS: IPRATROPIUM-ALBUTEROL 3 ML NEB INHALATION SCH ×2 (08:09→11:58)
[2019-01-06] MEDS: BUDESONIDE 1 MG/2 ML NEBU INHALATION SCH (08:09)
[2019-01-06] MEDS: FORMOTEROL FUMARATE 20 MCG/2 ML NEBU INHALATION SCH (08:09)
[2019-01-06] MEDS: NEBIVOLOL 5 MG TAB PO SCH (08:36)
--- NOTE | 2019-01-06 10:24 | P.PN ---
Subjective Progress Note Date: 01/06/19 01/06/2018: Patient seen and examined. Patient states she feels much better today and is ready to go home. She states the Mucinex helped her cough out a bunch of phlegm and she feels better. She denies fevers and chills. Objective - Vital Signs Vital signs: Vital Signs Temp 98.1 F 01/06/19 04:49 Pulse 84 01/06/19 08:30 Resp 16 01/06/19 04:49 BP 131/74 01/06/19 04:50 Pulse Ox 97 01/06/19 04:49 Intake & Output 01/05/19 01/06/19 01/06/19 18:59 06:59 18:59 Intake Total 180 590 Balance 180 590 Intake: Intake, IV Titration 180 Amount Sodium Chloride 0.9% 1, 180 000 ml @ 75 mls/hr IV . [id number] JENNIFER Rx#:[id number] Oral 590 Other: Voiding Method Bedside Commode Bedside Commode # Voids 2 - Exam General: Alert and oriented x 3, NAD CV: RRR, s1/s2 Lungs: diminished breath sounds with expiratory wheezing Abd: soft, NT/ND, +BS Ext: No edema - Labs CBC & Chem 7: 01/04/19 07:03 01/04/19 07:03 Labs: Abnormal Lab Results - Last 24 Hours (Table) 01/05/19 01/05/19 01/05/19 Range/Units 12:04 17:09 20:02 POC Glucose (mg/dL) 143 H 155 H 216 H (75-99) mg/dL 01/06/19 Range/Units 07:25 POC Glucose (mg/dL) 187 H (75-99) mg/dL Assessment and Plan Assessment: Acute on chronic hypoxic respiratory failure Acute exacerbation of very severe COPD, FEV1 19% of predicted Acute exacerbation of severe persistent asthma Pulmonary nodules Previous tobacco dependence, in remission History of breast cancer Dyslipidemia Hypertension O2 to maintain saturation > or = 90%, currently on 4L NC which is her baseline Pulmicort, Duonebs, Perforomist Singulair Solumedrol taper - change to PO Prednisone GI and DVT prophylaxis IS and pulmonary hygiene PT and OT Repeat CT chest in 3-6 months for pulm nodules Pulmonary rehab as outpatient Ok to [place] from pulmonary standpoint. Follow up 3 days
[2019-01-06 11:02] LABS: Glucose,Whole Blood 127 mg/dL (75-99)
[2019-01-06 12:01] VITALS: PULSE 80
[2019-01-06] MEDS: FLUCONAZOLE 100 MG TAB PO SCH (12:12)
--- NOTE | 2019-01-07 08:27 | DS ---
DISCHARGE SUMMARY DATE OF ADMISSION: 01/02/2019 DATE OF DISCHARGE: 01/06/2019 FINAL DIAGNOSES: 1. Acute severe chronic obstructive pulmonary disease exacerbation in an ex-smoker. 2. Acute tracheobronchitis. 3. Acute oropharyngeal candidiasis, POA. 4. Essential hypertension. 5. Hyperlipidemia. 6. Chronic urinary incontinence. 7. Primary osteoarthritis. 8. Chronic hypoxic respiratory failure on 4 L oxygen at home. 9. Acute hypoxic respiratory failure underlying COPD, POA. HOSPITAL COURSE: This patient with advanced COPD, presented with COPD exacerbation and acute tracheobronchitis, found to have oropharyngeal candidiasis. Did respond well to Diflucan and bronchodilators. Had a lengthy talk with the patient's also about pulmonary rehab. Doing better today. Has been out of bed, doing better, tolerating a diet. CONSULTATION: Dr. Willa Shaffer from Pulmonary. PHYSICAL EXAMINATION: Temperature 98.1, pulse 85, respirations 16, blood pressure 130/74, pulse ox 97% on 4 L. LUNGS: Improved air entry. DISCHARGE MEDICATIONS: 1. Ventolin 2.5 q.i.d. 2. Pulmicort 0.5 b.i.d. 3. Ferrous sulfate 325 p.o. daily. 4. 2 puffs b.i.d. 5. Losartan hydrochlorothiazide 100/12.5 one tablet p.o. daily. 6. Bystolic 5 mg p.o. daily. 7. Pravachol 40 mg q.h.s. 8. Zantac 150 mg p.o. b.i.d. 9. VESIcare 10 mg p.o. daily. 10.Norvasc 5 mg p.o. daily. 11.Diflucan 100 mg a day for 10 tablets. 12.DuoNeb q.i.d. plus p.r.n. 13.Singulair 10 mg q.h.s. 14.Mucinex 200 mg p.o. q.12. 15.Prednisone taper. FOLLOWUP: Follow up with Dr. Shaffer on 01/14/2019, follow up with Dr. Zhang De La Torre in [place] on 01/22/2019. Home oxygen to continue. [facility] to follow. Discussion and discharge planning more than 35 minutes. MMODL / IJN: [id number] /
== END 2019-01-06 15:55 | disposition home health service (06) | DRG 190 ==
LOC: EC 15:12 → 3NMEDONC 17:54
PROVIDERS: ADMIT Hospitalist; ATTEND Hospitalist
DX: J44.1 Chronic obstructive pulmonary disease with (acute) exacerbation (principal); J96.21 Acute and chronic respiratory failure with hypoxia; B37.89 Other sites of candidiasis; E87.2 Acidosis; B37.0 Candidal stomatitis; J45.51 Severe persistent asthma with (acute) exacerbation; E44.1 Mild protein-calorie malnutrition; E87.5 Hyperkalemia; J44.0 Chronic obstructive pulmonary disease with (acute) lower respiratory infection; J20.9 Acute bronchitis, unspecified; I10 Essential (primary) hypertension; E78.5 Hyperlipidemia, unspecified; R32 Unspecified urinary incontinence; M19.91 Primary osteoarthritis, unspecified site; K59.00 Constipation, unspecified; R53.81 Other malaise; E87.6 Hypokalemia; Z99.81 Dependence on supplemental oxygen; Z71.3 Dietary counseling and surveillance; Z68.28 Body mass index [BMI] 28.0-28.9, adult; Z79.899 Other long term (current) drug therapy; Z90.12 Acquired absence of left breast and nipple; Z98.42 Cataract extraction status, left eye; Z98.41 Cataract extraction status, right eye; Z90.49 Acquired absence of other specified parts of digestive tract; Z85.3 Personal history of malignant neoplasm of breast; Z87.891 Personal history of nicotine dependence; Z88.5 Allergy status to narcotic agent
CPT/HCPCS: 36415; 71046; 80053; 83735; 83880; 84484; 85025; 85610; 85730; 93005; 94640; 96374; 99285

== ENCOUNTER → 2019-03-17 | Outpatient (CLI) | payer MEDICARE | END | disposition home or self-care (01) | LOC: RADCTMAIN 13:05 | PROVIDERS: ATTEND Internal Medicine | DX: Z53.9 Procedure and treatment not carried out, unspecified reason (principal) ==

== ENCOUNTER → 2019-08-05 | Outpatient (CLI) | payer MEDICARE ==
--- NOTE | 2019-08-05 14:26 | XR ---
EXAMINATION TYPE: XR chest 2V DATE OF EXAM: 08/05/2019 COMPARISON: 01/02/2019 HISTORY: Chronic respiratory failure TECHNIQUE: Frontal and lateral views of the chest are obtained. FINDINGS: There is no focal air space opacity, pleural effusion, or pneumothorax seen. The cardiac silhouette size is within normal limits. The osseous structures are intact. IMPRESSION: No acute cardiopulmonary process.
== END | disposition home or self-care (01) ==
LOC: RADXRMAIN 14:04
PROVIDERS: ATTEND Nurse Practitioner
DX: J96.11 Chronic respiratory failure with hypoxia (principal); J45.50 Severe persistent asthma, uncomplicated; R07.9 Chest pain, unspecified; Z88.5 Allergy status to narcotic agent
CPT/HCPCS: 71046

== ENCOUNTER 2019-11-24 19:47 | Inpatient (IN) | payer MEDICARE ==
[2019-11-24] MEDS ORDERED: IPRATROPIUM-ALBUTEROL 3 ML NEB INHALATION STA ×3 (19:51→22:37)
[2019-11-24] MEDS ORDERED: methylPREDNISolone SOD SUCCI 125 MG/2 ML VIAL IV STA (19:51)
[2019-11-24] MEDS ORDERED: SODIUM CHLORIDE 0.9% 1,000 ML IV STA (19:51)
--- NOTE | 2019-11-24 19:56 | ED ---
SOB HPI - General Stated Complaint: JUANA Time Seen by Provider: 11/24/19 19:47 Source: patient, EMS, RN notes reviewed Mode of arrival: EMS - History of Present Illness Initial Comments: This is a 69-year-old female history of COPD and hypertension who states she's had difficulty breathing for past 2 days he progressively worse and refractory to her home medication. She is on 2 L of oxygen at home per nasal cannula but per paramedics she has some very long amounts of tubing. No fevers no chills no sweats no chest pain no cough or phlegm production some breath. She did receive a treatment in route which is some minimal improvement she states. Upon arrival with the end of the nebulizer she still dyspneic again. MD Complaint: shortness of breath - Related Data Home Medications Medication Instructions Recorded Confirmed Albuterol Nebulized [Ventolin 2.5 mg INHALATION RT-QID 12/24/18 01/02/19 Nebulized] Budesonide [Pulmicort] 0.5 mg INHALATION RT-BID 12/24/18 01/02/19 Ferrous Sulfate [Iron (65 MG 325 mg PO DAILY 12/24/18 01/02/19 Elemental)] Glycopyrrolate/Formoterol Fum 2 puff INHALATION RT-BID 12/24/18 01/02/19 [Bevespi Aerosphere Inhaler] Losartan/Hydrochlorothiazide 1 tab PO DAILY 12/24/18 01/02/19 [Losartan-Hctz 100-12.5 mg Tab] Nebivolol [Bystolic] 5 mg PO DAILY 12/24/18 01/02/19 Pravastatin Sodium [Pravachol] 40 mg PO HS 12/24/18 01/02/19 Ranitidine HCl [Zantac] 150 mg PO BID 12/24/18 01/02/19 Solifenacin Succinate [Vesicare] 10 mg PO DAILY 12/24/18 01/02/19 amLODIPine [Norvasc] 5 mg PO DAILY 12/24/18 01/02/19 Previous Rx's Medication Instructions Recorded Fluconazole [Diflucan] 100 mg PO DAILY@1200 #10 tab 01/06/19 Ipratropium-Albuterol Nebulize 3 ml INHALATION RT-Q4H PRN 01/06/19 [Duoneb 0.5 mg-3 mg/3 ml Soln] ampul.neb Ipratropium-Albuterol Nebulize 3 ml INHALATION RT-QID #120 01/06/19 [Duoneb 0.5 mg-3 mg/3 ml Soln] ampul.neb Montelukast [Singulair] 10 mg PO HS #30 tab 01/06/19 guaiFENesin [Mucinex] 1,200 mg PO Q12HR #60 tablet.er 01/06/19 predniSONE 10 mg PO DIRECTED #42 tab 01/06/19 Allergies Allergy/AdvReac Type Severity Reaction Status Date / Time codeine Allergy Unknown Verified 01/02/19 15:22 Review of Systems ROS Statement: Those systems with pertinent positive or pertinent negative responses have been documented in the HPI. ROS Other: All systems not noted in ROS Statement are negative. Past Medical History Past Medical History: Cancer, COPD, Hyperlipidemia, Hypertension, Pneumonia Additional Past Medical History / Comment(s): BREAST CANCER 2013 History of Any Multi-Drug Resistant Organisms: None Reported Past Surgical History: Adenoidectomy, Appendectomy, Tonsillectomy Additional Past Surgical History / Comment(s): LEFT BREAST MASECTOMY, Cataract surgery Past Anesthesia/Blood Transfusion Reactions: No Reported Reaction Past Psychological History: No Psychological Hx Reported Smoking Status: Former smoker Past Alcohol Use History: None Reported, Occasional Past Drug Use History: None Reported General Exam - General Exam Comments Initial Comments: This a well-developed well-nourished awake alert oriented history female there is demonstration of audible wheezing General appearance: alert, anxious, in distress Head exam: Present: atraumatic, normocephalic, normal inspection Eye exam: Present: normal appearance, PERRL, EOMI. Absent: scleral icterus, conjunctival injection, periorbital swelling ENT exam: Present: mucous membranes dry Neck exam: Present: normal inspection, full ROM, other (No stridor or is some forced expiratory wheezing about the neck). Absent: tenderness, meningismus, lymphadenopathy Respiratory exam: Present: wheezes, accessory muscle use. Absent: respiratory distress, rales, rhonchi, stridor Cardiovascular Exam: Present: regular rate, normal rhythm, normal heart sounds. Absent: systolic murmur, diastolic murmur, rubs, gallop, clicks GI/Abdominal exam: Present: soft, normal bowel sounds. Absent: distended, tenderness, guarding, rebound, rigid Extremities exam: Present: normal inspection, full ROM, normal capillary refill. Absent: tenderness, pedal edema, joint swelling, calf tenderness Back exam: Present: normal inspection Neurological exam: Present: alert, oriented X3, CN II-XII intact Psychiatric exam: Present: normal affect, normal mood Skin exam: Present: warm, dry, intact, normal color. Absent: rash Course Vital Signs 11/24/19 11/24/19 11/24/19 20:01 20:17 20:28 Temperature 97.5 F L Pulse Rate 120 H 106 H 102 H Respiratory 32 H Rate Blood Pressure 119/84 O2 Sat by Pulse 94 L Oximetry 11/24/19 11/24/19 11/24/19 21:04 21:26 21:38 Temperature Pulse Rate 105 H 102 H 96 Respiratory 30 H Rate Blood Pressure 113/77 O2 Sat by Pulse 88 L Oximetry - Reevaluation(s) Reevaluation #1: 11/24/19 22:34 I did reevaluate patient several occasions she still is getting minimal improvement thus far the medication was rendered. She was found be hypomagnesemic in addition. Additionally there is evidence of a limited left lower lobe pneumonic process likely consistent with pneumonia. Medical Decision Making - Medical Decision Making Patient is demonstrating a COPD exacerbation with left lower lobe pneumonia. I did discuss case with her and her family as well as with Dr. Negron patient will be admitted for inpatient treatment consultation will be made to Dr. Masters's group who she has seen in the past - Lab Data Result diagrams: 11/24/19 20:00 11/24/19 20:00 Lab Results 11/24/19 11/24/19 11/24/19 Range/Units 20:00 20:00 20:00 WBC 12.6 H (3.8-10.6) k/uL RBC 3.70 L (3.80-5.40) m/uL Hgb 12.2 (11.4-16.0) gm/dL Hct 38.9 (34.0-46.0) % MCV 105.3 H (80.0-100.0) fL MCH 33.1 (25.0-35.0) pg MCHC 31.5 (31.0-37.0) g/dL RDW 14.8 (11.5-15.5) % Plt Count 317 (150-450) k/uL Neutrophils % 80 % Lymphocytes % 6 % Monocytes % 6 % Eosinophils % 5 % Basophils % 2 % Neutrophils # 10.1 H (1.3-7.7) k/uL Lymphocytes # 0.8 L (1.0-4.8) k/uL Monocytes # 0.7 (0-1.0) k/uL Eosinophils # 0.6 (0-0.7) k/uL Basophils # 0.3 H (0-0.2) k/uL Macrocytosis Moderate PT (9.0-12.0) sec INR (<1.2) APTT (22.0-30.0) sec Sodium 135 L (137-145) mmol/L Potassium 4.1 (3.5-5.1) mmol/L Chloride 91 L (98-107) mmol/L Carbon Dioxide 37 H (22-30) mmol/L Anion Gap 7 mmol/L BUN 11 (7-17) mg/dL Creatinine 0.50 L (0.52-1.04) mg/dL Est GFR (CKD-EPI)AfAm >90 (>60 ml/min/1.73 sqM) Est GFR (CKD-EPI)NonAf >90 (>60 ml/min/1.73 sqM) Glucose 129 H (74-99) mg/dL Plasma Lactic Acid Micah 1.1 (0.7-2.0) mmol/L Calcium 9.8 (8.4-10.2) mg/dL Magnesium 1.3 L (1.6-2.3) mg/dL Total Bilirubin 0.7 (0.2-1.3) mg/dL AST 26 (14-36) U/L ALT 13 (4-34) U/L Alkaline Phosphatase 59 (38-126) U/L Creatine Kinase 26 L (30-135) U/L Troponin I (0.000-0.034) ng/mL NT-Pro-B Natriuret Pep pg/mL Total Protein 6.4 (6.3-8.2) g/dL Albumin 3.9 (3.5-5.0) g/dL 11/24/19 11/24/19 11/24/19 Range/Units 20:00 20:00 20:00 WBC (3.8-10.6) k/uL RBC (3.80-5.40) m/uL Hgb (11.4-16.0) gm/dL Hct (34.0-46.0) % MCV (80.0-100.0) fL MCH (25.0-35.0) pg MCHC (31.0-37.0) g/dL RDW (11.5-15.5) % Plt Count (150-450) k/uL Neutrophils % % Lymphocytes % % Monocytes % % Eosinophils % % Basophils % % Neutrophils # (1.3-7.7) k/uL Lymphocytes # (1.0-4.8) k/uL Monocytes # (0-1.0) k/uL Eosinophils # (0-0.7) k/uL Basophils # (0-0.2) k/uL Macrocytosis PT 10.0 (9.0-12.0) sec INR 1.0 (<1.2) APTT 19.1 L (22.0-30.0) sec Sodium (137-145) mmol/L Potassium (3.5-5.1) mmol/L Chloride (98-107) mmol/L Carbon Dioxide (22-30) mmol/L Anion Gap mmol/L BUN (7-17) mg/dL Creatinine (0.52-1.04) mg/dL Est GFR (CKD-EPI)AfAm (>60 ml/min/1.73 sqM) Est GFR (CKD-EPI)NonAf (>60 ml/min/1.73 sqM) Glucose (74-99) mg/dL Plasma Lactic Acid Micah (0.7-2.0) mmol/L Calcium (8.4-10.2) mg/dL Magnesium (1.6-2.3) mg/dL Total Bilirubin (0.2-1.3) mg/dL AST (14-36) U/L ALT (4-34) U/L Alkaline Phosphatase (38-126) U/L Creatine Kinase (30-135) U/L Troponin I <0.012 (0.000-0.034) ng/mL NT-Pro-B Natriuret Pep 230 pg/mL Total Protein (6.3-8.2) g/dL Albumin (3.5-5.0) g/dL - EKG Data -: EKG Interpreted by Me (There was sinus rhythm a 99. Interval 142 QRS duration 82 QT since QTC 338) - Radiology Data Radiology results: report reviewed (I did review the imaging and report is evidence a left lower lobe pneumonic process.), image reviewed Critical Care Time Critical Care Time: Yes Critical Care Time: Critical care time: 31 minutes of critical care time which includes initial presentation with history physical labs x-rays discussed with paramedics upon arrival multiple reevaluation the patient response to therapy discuss with the patient family regarding findings review of old charting was available discussed with Dr. Negron admission orders and documentation of the above Disposition Clinical Impression: Acute respiratory distress syndrome in adult, Acute exacerbation of chronic obstructive pulmonary disease, Left lower lobe pneumonia, Hypomagnesemia syndrome, Dehydration Disposition: ADMITTED IP TO THIS HOSP Condition: Fair Referrals: Alex De La Torre MD [Primary Care Provider] - 1-2 days
[2019-11-24 20:12] LABS: Basophils # (A) 0.3 k/uL (0-0.2); Basophils % (A) 2 %; Eosinophils # (A) 0.6 k/uL (0-0.7); Eosinophils % (A) 5 %; HCT 38.9 % (34.0-46.0); HGB 12.2 gm/dL (11.4-16.0); Lymphocytes # (A) 0.8 k/uL (1.0-4.8); Lymphocytes % (A) 6 %; MCH 33.1 pg (25.0-35.0); MCHC 31.5 g/dL (31.0-37.0); MCV 105.3 fL (80.0-100.0); Macrocytosis Moderate; Mean Platelet Volume 7.4; Monocytes # (A) 0.7 k/uL (0-1.0); Monocytes % (A) 6 %; Neutrophils # (A) 10.1 k/uL (1.3-7.7); Neutrophils % (A) 80 %; Platelet Count 317 k/uL (150-450); RDW 14.8 % (11.5-15.5); WBC 12.6 k/uL (3.8-10.6)
[2019-11-24 20:24] LABS: ALT 13 U/L (4-34); AST 26 U/L (14-36); African American GFR (CKD) >90 (>60 ml/min/1.73 sqM); Albumin 3.9 g/dL (3.5-5.0); Alkaline Phosphatase 59 U/L (38-126); Blood Urea Nitrogen 11 mg/dL (7-17); Calcium 9.8 mg/dL (8.4-10.2); Chloride 91 mmol/L (98-107); Creatine Kinase 26 U/L (30-135); Glucose 129 mg/dL (74-99); Magnesium 1.3 mg/dL (1.6-2.3); Non-African American GFR(CKD) >90 (>60 ml/min/1.73 sqM); Potassium 4.1 mmol/L (3.5-5.1); Sodium 135 mmol/L (137-145); Total Bilirubin 0.7 mg/dL (0.2-1.3); Total Protein 6.4 g/dL (6.3-8.2)
[2019-11-24 20:33] LABS: Anion Gap 7 mmol/L; Carbon Dioxide 37 mmol/L (22-30)
[2019-11-24 20:43] LABS: Partial Thromboplastin Time 19.1 sec (22.0-30.0)
--- NOTE | 2019-11-24 21:01 | XR ---
EXAMINATION TYPE: XR chest 2V DATE OF EXAM: 11/24/2019 COMPARISON: 08/05/2019 HISTORY: Short of breath TECHNIQUE: FINDINGS: There is no heart failure nor confluent pneumonic infiltrate. There are small calcified gra nulomata in the lungs. there is small area of pleural reaction lateral left lung base. Thoracic aorta is atheromatous. The re is no evidence of pleural effusion. IMPRESSION: Small area of pleural reaction left lung base is a change compared to old exam. Old granu lomatous disease. Normal heart..
[2019-11-24] MEDS: MAGNESIUM SULFATE-D5W PMX 1 GM in DEXTROSE/WATER 1 100ML.BAG IVPB SCH (21:17)
[2019-11-24] MEDS ORDERED: PNEUMONIA PROTOCOL UTILIZED 1 EACH MISC PO PRN (22:37)
[2019-11-24] MEDS ORDERED: AZITHROMYCIN 500 MG in SODIUM CHLORIDE 0.9% 250 ML IVPB STA (22:37)
[2019-11-24] MEDS ORDERED: cefTRIAXone IN SWFI 1,000 MG/10 ML SYRINGE IVP STA (22:37)
[2019-11-24] MEDS: SODIUM CHLORIDE 0.9% 1,000 ML IV SCH (23:30)
[2019-11-24] MEDS ORDERED: IPRATROPIUM-ALBUTEROL 3 ML NEB INHALATION PRN (23:32)
[2019-11-25] MEDS: MAGNESIUM SULFATE-D5W PMX 1 GM in DEXTROSE/WATER 1 100ML.BAG IVPB SCH
[2019-11-25] MEDS ORDERED: IPRATROPIUM-ALBUTEROL 3 ML NEB INHALATION SCH
[2019-11-25] MEDS: IPRATROPIUM-ALBUTEROL 3 ML NEB INHALATION SCH ×4 (07:24→20:00)
[2019-11-25] MEDS: methylPREDNISolone SOD SUCCI 125 MG/2 ML VIAL IV SCH ×4 (07:38→18:02)
[2019-11-25] MEDS: SODIUM CHLORIDE 0.9% 1,000 ML IV SCH ×2 (10:43→18:21)
[2019-11-25] MEDS: NEBIVOLOL 5 MG TAB PO SCH (10:43)
[2019-11-25] MEDS: TROSPIUM CHLORIDE 20 MG TABLET PO SCH ×2 (10:44→20:29)
[2019-11-25] MEDS: LOSARTAN-HCTZ 50-12.5 MG 1 EACH TAB PO SCH (10:44)
[2019-11-25] MEDS: amLODIPine 5 MG TAB PO SCH (10:50)
[2019-11-25] MEDS: LOSARTAN 50 MG TAB PO SCH (10:50)
[2019-11-25] MEDS: guaiFENesin 600 MG TABLET.ER PO SCH ×2 (10:50→20:19)
[2019-11-25] MEDS: FAMOTIDINE 20 MG TAB PO SCH ×2 (10:50→20:18)
[2019-11-25] MEDS: FERROUS SULFATE 325 MG TAB PO SCH (10:50)
[2019-11-25] MEDS: OSELTAMIVIR 75 MG CAP PO SCH ×2 (11:11→20:19)
--- NOTE | 2019-11-25 13:28 | P.CNPUL ---
History of Present Illness Consult date: 11/25/19 Reason for consult: dyspnea, cough, COPD, hypoxemia Chief complaint: Progressive shortness of breath and dry cough for last to 3 days History of present illness: This is a 69-year-old with end-stage COPD on chronic oxygen therapy she has been on 2-3 L oxygen at home she has developed progressive increased shortness of breath along with dry cough came into the hospital, patient in the ER was in extreme respiratory distress requiring BiPAP currently she has been weaned off of BiPAP on 6 L nasal cannula oxygen saturation is stable she is feeling slightly better, chest x-ray admitted for Sr. off of developing left lower lobe pneumonia Review of Systems All systems: negative Past Medical History Past Medical History: Cancer, COPD, Hyperlipidemia, Hypertension, Pneumonia Additional Past Medical History / Comment(s): BREAST CANCER 2013; PATIENT WEARS 4L OF OXYGEN AT HOME History of Any Multi-Drug Resistant Organisms: None Reported Past Surgical History: Adenoidectomy, Appendectomy, Tonsillectomy Additional Past Surgical History / Comment(s): LEFT BREAST MASECTOMY, Cataract surgery Past Anesthesia/Blood Transfusion Reactions: No Reported Reaction Past Psychological History: No Psychological Hx Reported Smoking Status: Former smoker Past Alcohol Use History: None Reported Past Drug Use History: None Reported Medications and Allergies Home Medications Medication Instructions Recorded Confirmed Type Budesonide [Pulmicort] 0.5 mg INHALATION RT-BID 12/24/18 11/24/19 History Glycopyrrolate/Formoterol Fum 2 puff INHALATION RT-BID 12/24/18 11/24/19 History [Bevespi Aerosphere Inhaler] Nebivolol [Bystolic] 5 mg PO DAILY 12/24/18 11/24/19 History Pravastatin Sodium [Pravachol] 40 mg PO HS 12/24/18 11/24/19 History Ranitidine HCl [Zantac] 150 mg PO BID 12/24/18 11/24/19 History amLODIPine [Norvasc] 5 mg PO DAILY 12/24/18 11/24/19 History Montelukast [Singulair] 10 mg PO HS #30 tab 01/06/19 11/24/19 Rx Albuterol Sulfate [Proair Hfa] 2 puff INHALATION RT-Q4H PRN 11/24/19 11/24/19 History Hydrochlorothiazide [Hydrodiuril] 25 mg PO DAILY 11/24/19 11/24/19 History Ipratropium-Albuterol Nebulize 3 ml INHALATION RT-QID PRN 11/24/19 11/24/19 History [Duoneb 0.5 mg-3 mg/3 ml Soln] Losartan Potassium 100 mg PO DAILY 11/24/19 11/24/19 History predniSONE 5 mg PO DAILY 11/24/19 11/24/19 History Allergies Allergy/AdvReac Type Severity Reaction Status Date / Time codeine AdvReac Nausea & Verified 11/24/19 22:51 Vomiting Physical Exam Vitals: Vital Signs Temp Pulse Pulse Pulse Resp BP BP 11/25/19 11:26 101 H 11/25/19 11:08 99 11/25/19 11:02 110 H 11/25/19 09:52 11/25/19 07:48 111 H 11/25/19 07:25 120 H 11/25/19 07:23 130 H 32 H 158/103 11/25/19 06:00 91 20 120/81 11/25/19 01:19 96 11/25/19 01:08 93 11/25/19 00:00 97.6 F 115 H 115 H 30 H 149/99 11/24/19 23:33 11/24/19 23:15 100 28 H 133/74 11/24/19 21:38 96 11/24/19 21:26 102 H 11/24/19 21:04 105 H 30 H 113/77 11/24/19 20:28 102 H 11/24/19 20:17 106 H 11/24/19 20:01 97.5 F L 120 H 32 H 119/84 Pulse Ox 11/25/19 11:26 11/25/19 11:08 11/25/19 11:02 11/25/19 09:52 93 L 11/25/19 07:48 11/25/19 07:25 11/25/19 07:23 76 L 11/25/19 06:00 95 11/25/19 01:19 11/25/19 01:08 11/25/19 00:00 90 L 11/24/19 23:33 93 L 11/24/19 23:15 94 L 11/24/19 21:38 11/24/19 21:26 11/24/19 21:04 88 L 11/24/19 20:28 11/24/19 20:17 11/24/19 20:01 94 L Intake and Output 11/24/19 11/25/19 11/25/19 22:59 06:59 14:59 Other: Weight 72.575 kg 72.575 kg - Constitutional General appearance: average body habitus, cooperative, disheveled, mild distress - EENT Eyes: EOMI, PERRLA, poor dentition, normal appearance Ears: bilateral: normal - Neck Carotids: bilateral: upstroke normal Thyroid: bilateral: normal size - Respiratory Respiratory: bilateral: diminished, wheezing (Fine bilateral), negative: CTA, dullness, rales, rhonchi - Cardiovascular Rhythm: regular Heart sounds: normal: S1, S2 - Gastrointestinal General gastrointestinal: normal bowel sounds - Integumentary Integumentary: normal - Neurologic Neurologic: CNII-XII intact - Musculoskeletal Musculoskeletal: gait normal, generalized weakness, strength equal bilaterally - Psychiatric Psychiatric: A&O x's 3, appropriate affect, intact judgment & insight Results - Laboratory Findings CBC and BMP: 11/24/19 20:00 11/24/19 20:00 PT/INR, D-dimer PT 10.0 sec (9.0-12.0) 11/24/19 20:00 INR 1.0 (<1.2) 11/24/19 20:00 Abnormal lab findings: Abnormal Labs 11/24/19 11/24/19 11/24/19 20:00 20:00 20:00 WBC 12.6 H RBC 3.70 L MCV 105.3 H Neutrophils # 10.1 H Lymphocytes # 0.8 L Basophils # 0.3 H APTT 19.1 L Sodium 135 L Chloride 91 L Carbon Dioxide 37 H Creatinine 0.50 L Glucose 129 H Magnesium 1.3 L Creatine Kinase 26 L - Diagnostic Findings Chest x-ray: report reviewed, image reviewed (Developing left lower lobe pneumonia cannot be excluded) Assessment and Plan Assessment: Left lower lobe pneumonia likely community-acquired Acute on chronic hypoxic respiratory failure End-stage COPD oxygen and prednisone dependent Hypertension hypertensive cardiovascular disease Plan: Broad-spectrum antibiotics Breathing treatments IV steroids Continue BiPAP each night and when necessary during the day Supplemental oxygen DVT and peptic ulcer disease prophylaxis Further recommendations pending plan of care as per clinical response of the patient Time with Patient: Greater than 30
[2019-11-25] MEDS ORDERED: TAMSULOSIN 0.4 MG CAP.ER.24H PO SCH (18:30)
[2019-11-25] MEDS: TAMSULOSIN 0.4 MG CAP.ER.24H PO SCH (20:18)
[2019-11-25] MEDS: PRAVASTATIN SODIUM 40 MG TAB PO SCH (20:18)
[2019-11-25] MEDS: MONTELUKAST 10 MG TAB PO SCH (20:19)
[2019-11-25] MEDS: ACETAMINOPHEN TAB 325 MG TAB PO PRN (20:19)
--- NOTE | 2019-11-25 22:20 | P.HPIM ---
History of Present Illness H&P Date: 11/25/19 Chief Complaint: Shortness of breath This is a 69-year-old patient of Dr. 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 Thu batista. Chronic stable medical conditions include hypertension, hyperlipidemia, urinary incontinence, osteoarthritis and home oxygen 4 L. Patient to 3 days of worsening short of breath, cough. No phlegm refractoriness of the chest. Having chills tired at all over the body. Appetite is gone down. Family the bedside. Tired rundown. Using a BiPAP today morning. Review of systems: GEN.: Tired EYES: None HEENT: None NECK: None RESPIRATORY: [As above CARDIOVASCULAR: None GASTROINTESTINAL: None GENITOURINARY: None MUSCULOSKELETAL: Joint pains LYMPHATICS: None HEMATOLOGICAL: None PSYCHIATRY: None NEUROLOGICAL: None Past medical history to include: COPD, hypertension, hyperlipidemia, urinary incontinence, osteoarthritis, chronic hypoxic respiratory failure on 4 L oxygen at home Social history: Smoked a pack and half a close to 50 years stopped about 9 years ago. . No alcohol. Family history: Reviewed, noncontributory to presentation Physical examination: VITAL SIGNS: 97.5, 120, 32, 11 9/84, 94% 6 L-upon presentation GENERAL: BMI 29.3, laying pressure a bit with the BiPAP. EYES: Pupils equal. Conjunctiva normal. HEENT: External appearance of nose and ears normal, oral cavity grossly normal. NECK: JVD not raised; masses not palpable. HEART: First and second heart sounds are normal; no edema. LUNGS: Respiratory rate increased, accessory muscle working, not able to speak in full sentences diminished breath sounds scattered coarse crackles, wheezing. ABDOMEN: Soft, nontender, liver spleen not palpable, no masses palpable. PSYCH: [Alert and oriented x3; mood and affect anxious l. MUSCULOSKELETAL: Pain in his joints in achiness in cervical muscles with this acute episode NEUROLOGICAL: Cranial nerves grossly intact; no facial asymmetry, power and sensation grossly intact. LYMPHATICS: No lymph nodes palpable in the axilla and neck INVESTIGATIONS, reviewed in the clinical context: White count 12.6 hemoglobin 12.2 platelets 317 potassium 4.1 bun 11 creatinine 0.5 Influenza type A and type B both negative EKG tracing personally reviewed by me-normal sinus rhythm Chest x-ray film personally reviewed by me-basilar infiltrates Assessment: -Acute severe COPD exacerbation and an ex-smoker -Essential hypertension -Hyperlipidemia -Chronic urinary incontinence -Primary osteoarthritis -Chronic hypoxic respiratory failure on 4 L of oxygen -Bilateral pneumonitis could be influenza. Given the significant of her symptoms still need to be treated for same even though nasal swab is come back negative. As per the new ATS recommendations's -Acute hypoxic respiratory failure from above requiring BiPAP -Secondary bacterial pneumonia cannot be followed as patient also being covered for the same. Plan: Patient is on a BiPAP. IV antibiotics including ceftriaxone and Zithromax. Also started on DuoNeb's IV Solu-Medrol on the home medications resumed. Patient also put on Tamiflu. Lovenox for DVT prophylaxis. Pulmonary was consulted. Care was discussed the patient and family the bedside. Past Medical History Past Medical History: Cancer, COPD, Hyperlipidemia, Hypertension, Pneumonia Additional Past Medical History / Comment(s): BREAST CANCER 2013; PATIENT WEARS 4L OF OXYGEN AT HOME History of Any Multi-Drug Resistant Organisms: None Reported Past Surgical History: Adenoidectomy, Appendectomy, Tonsillectomy Additional Past Surgical History / Comment(s): LEFT BREAST MASECTOMY, Cataract surgery Past Anesthesia/Blood Transfusion Reactions: No Reported Reaction Past Psychological History: No Psychological Hx Reported Smoking Status: Former smoker Past Alcohol Use History: None Reported Past Drug Use History: None Reported Medications and Allergies Home Medications Medication Instructions Recorded Confirmed Type Budesonide [Pulmicort] 0.5 mg INHALATION RT-BID 12/24/18 11/24/19 History Glycopyrrolate/Formoterol Fum 2 puff INHALATION RT-BID 12/24/18 11/24/19 History [Bevespi Aerosphere Inhaler] Nebivolol [Bystolic] 5 mg PO DAILY 12/24/18 11/24/19 History Pravastatin Sodium [Pravachol] 40 mg PO HS 12/24/18 11/24/19 History Ranitidine HCl [Zantac] 150 mg PO BID 12/24/18 11/24/19 History amLODIPine [Norvasc] 5 mg PO DAILY 12/24/18 11/24/19 History Montelukast [Singulair] 10 mg PO HS #30 tab 01/06/19 11/24/19 Rx Albuterol Sulfate [Proair Hfa] 2 puff INHALATION RT-Q4H PRN 11/24/19 11/24/19 History Hydrochlorothiazide [Hydrodiuril] 25 mg PO DAILY 11/24/19 11/24/19 History Ipratropium-Albuterol Nebulize 3 ml INHALATION RT-QID PRN 11/24/19 11/24/19 History [Duoneb 0.5 mg-3 mg/3 ml Soln] Losartan Potassium 100 mg PO DAILY 11/24/19 11/24/19 History predniSONE 5 mg PO DAILY 11/24/19 11/24/19 History Allergies Allergy/AdvReac Type Severity Reaction Status Date / Time codeine AdvReac Nausea & Verified 11/24/19 22:51 Vomiting Physical Exam Vitals: Vital Signs Temp Pulse Pulse Pulse Resp BP BP 11/25/19 09:52 11/25/19 07:48 111 H 11/25/19 07:25 120 H 11/25/19 07:23 130 H 32 H 158/103 11/25/19 06:00 91 20 120/81 11/25/19 01:19 96 11/25/19 01:08 93 11/25/19 00:00 97.6 F 115 H 115 H 30 H 149/99 11/24/19 23:33 11/24/19 23:15 100 28 H 133/74 11/24/19 21:38 96 11/24/19 21:26 102 H 11/24/19 21:04 105 H 30 H 113/77 11/24/19 20:28 102 H 11/24/19 20:17 106 H 11/24/19 20:01 97.5 F L 120 H 32 H 119/84 Pulse Ox 11/25/19 09:52 93 L 11/25/19 07:48 11/25/19 07:25 11/25/19 07:23 76 L 11/25/19 06:00 95 11/25/19 01:19 11/25/19 01:08 11/25/19 00:00 90 L 11/24/19 23:33 93 L 11/24/19 23:15 94 L 11/24/19 21:38 11/24/19 21:26 11/24/19 21:04 88 L 11/24/19 20:28 11/24/19 20:17 11/24/19 20:01 94 L Intake and Output 11/24/19 11/25/1920 22:59 06:59 14:59 Other: Weight 72.575 kg 72.575 kg Results CBC & Chem 7: 11/24/19 20:00 11/24/19 20:00 Labs: Abnormal Lab Results - Last 24 Hours (Table) 11/24/19 11/24/19 11/24/19 Range/Units 20:00 20:00 20:00 WBC 12.6 H (3.8-10.6) k/uL RBC 3.70 L (3.80-5.40) m/uL MCV 105.3 H (80.0-100.0) fL Neutrophils # 10.1 H (1.3-7.7) k/uL Lymphocytes # 0.8 L (1.0-4.8) k/uL Basophils # 0.3 H (0-0.2) k/uL APTT 19.1 L (22.0-30.0) sec Sodium 135 L (137-145) mmol/L Chloride 91 L (98-107) mmol/L Carbon Dioxide 37 H (22-30) mmol/L Creatinine 0.50 L (0.52-1.04) mg/dL Glucose 129 H (74-99) mg/dL Magnesium 1.3 L (1.6-2.3) mg/dL Creatine Kinase 26 L (30-135) U/L Thrombosis Risk Factor Assmnt - Choose All That Apply Each Factor Represents 1 point: Abnormal pulmonary function (COPD), Obesity (BMI >25), Serious lung disease incl. pneumonia (< 1month) Each Risk Factor Represents 2 Points: Age 61-74 years, Patient confined to bed Thrombosis Risk Factor Assessment Total Risk Factor Score: 7 Thrombosis Risk Factor Assessment Level: High Risk
[2019-11-25] MEDS: ENOXAPARIN 40 MG/0.4 ML SYRINGE SQ SCH (22:31)
[2019-11-25] MEDS: AZITHROMYCIN 500 MG TAB PO SCH (22:31)
[2019-11-25] MEDS: methylPREDNISolone SOD SUCCI 40 MG/ML 1 ML VIAL IV SCH (23:51)
[2019-11-26] MEDS: IPRATROPIUM-ALBUTEROL 3 ML NEB INHALATION SCH ×6 (00:50→20:29)
[2019-11-26] MEDS: SODIUM CHLORIDE 0.9% 1,000 ML IV SCH ×2 (03:27→23:51)
[2019-11-26] MEDS: methylPREDNISolone SOD SUCCI 40 MG/ML 1 ML VIAL IV SCH ×2 (07:42→16:58)
[2019-11-26] MEDS: BUDESONIDE 1 MG/2 ML NEBU INHALATION SCH ×2 (07:59→20:29)
[2019-11-26 09:42] LABS: HCT 32.4 % (34.0-46.0); HGB 10.1 gm/dL (11.4-16.0); Hypochromasia Slight; MCH 33.1 pg (25.0-35.0); MCHC 31.2 g/dL (31.0-37.0); MCV 106.1 fL (80.0-100.0); Macrocytosis Moderate; Mean Platelet Volume 8.2; Platelet Count 277 k/uL (150-450); RBC 3.05 m/uL (3.80-5.40); RDW 14.8 % (11.5-15.5); WBC 16.8 k/uL (3.8-10.6)
[2019-11-26 09:53] LABS: African American GFR (CKD) >90 (>60 ml/min/1.73 sqM); Anion Gap 6 mmol/L; Blood Urea Nitrogen 9 mg/dL (7-17); Calcium 8.4 mg/dL (8.4-10.2); Carbon Dioxide 29 mmol/L (22-30); Chloride 97 mmol/L (98-107); Glucose 150 mg/dL (74-99); Non-African American GFR(CKD) >90 (>60 ml/min/1.73 sqM); Potassium 3.9 mmol/L (3.5-5.1); Sodium 132 mmol/L (137-145)
[2019-11-26] MEDS: OSELTAMIVIR 75 MG CAP PO SCH ×2 (10:06→22:33)
[2019-11-26] MEDS: LOSARTAN-HCTZ 50-12.5 MG 1 EACH TAB PO SCH (10:06)
[2019-11-26] MEDS: TROSPIUM CHLORIDE 20 MG TABLET PO SCH (10:06)
[2019-11-26] MEDS: FAMOTIDINE 20 MG TAB PO SCH ×2 (10:06→21:41)
[2019-11-26] MEDS: LOSARTAN 50 MG TAB PO SCH (10:07)
[2019-11-26] MEDS: guaiFENesin 600 MG TABLET.ER PO SCH ×2 (10:07→21:40)
[2019-11-26] MEDS: amLODIPine 5 MG TAB PO SCH (10:07)
[2019-11-26] MEDS: FERROUS SULFATE 325 MG TAB PO SCH (10:07)
[2019-11-26] MEDS: NEBIVOLOL 5 MG TAB PO SCH (10:07)
[2019-11-26] MEDS: ENOXAPARIN 40 MG/0.4 ML SYRINGE SQ SCH (10:31)
[2019-11-26] MEDS: ONDANSETRON 4 MG/2 ML VIAL IVP PRN (13:34)
[2019-11-26] MEDS: LORazepam 0.5 MG TAB PO PRN (13:53)
--- NOTE | 2019-11-26 16:20 | P.PN ---
Subjective Progress Note Date: 11/26/19 Principal diagnosis: Left lower lobe pneumonia likely community-acquired Acute on chronic hypoxic respiratory failure End-stage COPD oxygen and prednisone dependent Hypertension hypertensive cardiovascular disease 11/26/2019, patient seen eval examined during the rounds labs reviewed medications reviewed as patient did use the BiPAP last night about 4 hours she did not want to use the BiPAP anymore remains on supplemental oxygen she has bilateral wheezing, daughter is present at bedside, I have discussed with RN at length about CODE STATUS she would like to look into it This is a 69-year-old with end-stage COPD on chronic oxygen therapy she has been on 2-3 L oxygen at home she has developed progressive increased shortness of breath along with dry cough came into the hospital, patient in the ER was in extreme respiratory distress requiring BiPAP currently she has been weaned off of BiPAP on 6 L nasal cannula oxygen saturation is stable she is feeling slightly better, chest x-ray admitted for Sr. off of developing left lower lobe pneumonia Objective - Vital Signs Vital signs: Vital Signs Temp 97.1 F L 11/26/19 12:06 Pulse 106 H 11/26/19 12:11 Resp 23 11/26/19 15:35 BP 125/82 11/26/19 12:06 Pulse Ox 94 L 11/26/19 12:06 Intake & Output 11/25/19 11/26/19 11/26/19 18:59 06:59 18:59 Intake Total 540 840 200 Output Total 170 626 750 Balance 370 214 -550 Weight 72.575 kg Intake: Oral 540 840 200 Output: Gastric Drainage 100 Urine 70 50 750 Post Void Residual 576 Other: Voiding Method Self-Catheterization # Voids 2 - Exam - Constitutional General appearance: average body habitus, cooperative, disheveled, mild distress - EENT Eyes: EOMI, PERRLA, poor dentition, normal appearance Ears: bilateral: normal - Neck Carotids: bilateral: upstroke normal Thyroid: bilateral: normal size - Respiratory Respiratory: bilateral: diminished, wheezing (Fine bilateral), negative: CTA, dullness, rales, rhonchi - Cardiovascular Rhythm: regular Heart sounds: normal: S1, S2 - Gastrointestinal General gastrointestinal: normal bowel sounds - Integumentary Integumentary: normal - Neurologic Neurologic: CNII-XII intact - Musculoskeletal Musculoskeletal: gait normal, generalized weakness, strength equal bilaterally - Psychiatric Psychiatric: A&O x's 3, appropriate affect, intact judgment & insight - Labs CBC & Chem 7: 11/26/19 09:00 11/26/19 09:00 Labs: Abnormal Lab Results - Last 24 Hours (Table) 11/26/19 11/26/19 Range/Units 09:00 09:00 WBC 16.8 H (3.8-10.6) k/uL RBC 3.05 L (3.80-5.40) m/uL Hgb 10.1 L (11.4-16.0) gm/dL Hct 32.4 L (34.0-46.0) % MCV 106.1 H (80.0-100.0) fL Sodium 132 L (137-145) mmol/L Chloride 97 L (98-107) mmol/L Creatinine 0.41 L (0.52-1.04) mg/dL Glucose 150 H (74-99) mg/dL Microbiology - Last 24 Hours (Table) 11/24/19 23:15 Blood Culture - Preliminary Blood No Growth after 24 hours Assessment and Plan Assessment: Left lower lobe pneumonia likely community-acquired Acute on chronic hypoxic respiratory failure End-stage COPD oxygen and prednisone dependent Hypertension hypertensive cardiovascular disease Plan: Broad-spectrum antibiotics Breathing treatments IV steroids Continue BiPAP each night and when necessary during the day Supplemental oxygen DVT and peptic ulcer disease prophylaxis Further recommendations pending plan of care as per clinical response of the patient Time with Patient: Greater than 30
--- NOTE | 2019-11-26 16:27 | P.PN ---
Subjective Progress Note Date: 11/26/19 Principal diagnosis: This is a 69-year-old female who was recently admitted with worsening shortness of breath and a cough along with chills and body aches all over and is being dwight sely monitored. Patient continues to be extremely short of breath and quite anxious today. Patient also complaining of some nausea today. Zofran was ordered. Patient's urine output is diminished and will initiate Lr catheter to monitor strict I&O's. Patient is currently on Flomax and will continue at this time. Patient remains on bronchodilators, IV steroids, and also with IV ceftriaxone and oral Zithromax and will continue at this time. Dr. Mcwilliams is following. Patient was using a BiPAP last night and is currently on 4 L of oxygen and states she does not want to use the BiPAP. Will continue to monitor closely. Objective - Vital Signs Vital signs: Vital Signs Temp 97.1 F L 11/26/19 12:06 Pulse 106 H 11/26/19 12:11 Resp 23 11/26/19 15:35 BP 125/82 11/26/19 12:06 Pulse Ox 94 L 11/26/19 12:06 Intake & Output 11/25/19 11/26/19 11/26/19 18:59 06:59 18:59 Intake Total 540 840 200 Output Total 170 626 750 Balance 370 214 -550 Weight 72.575 kg Intake: Oral 540 840 200 Output: Gastric Drainage 100 Urine 70 50 750 Post Void Residual 576 Other: Voiding Method Self-Catheterization # Voids 2 - Exam VITAL SIGNS: Temp is 97.1F, pulse is 115, respirations are 24, blood pressure is 125/82, oxygen saturation is 94% on 4 L via nasal cannula. GENERAL: Awake, alert and oriented 3, sitting up in the bed, well-nourished, well-developed EYES: Pupils equal. Conjunctiva normal. HEENT: External appearance of nose and ears normal, oral cavity grossly normal. NECK: JVD not raised; masses not palpable. HEART: S1, S2 are muffled LUNGS: Diminished breath sounds at the bases with some scattered rhonchi and crackles noted. Expiratory wheezing noted on exam. ABDOMEN: Soft, nontender, non-tender, no masses palpable. PSYCH: Alert and oriented x3, mood and affect: anxious MUSCULOSKELETAL: Pain in her joints in achiness in cervical muscles with this acute episode NEUROLOGICAL: Cranial nerves grossly intact; no facial asymmetry, power and sensation grossly intact. LYMPHATICS: No lymph nodes palpable in the axilla and neck - Labs CBC & Chem 7: 11/26/19 09:00 11/26/19 09:00 Labs: Abnormal Lab Results - Last 24 Hours (Table) 11/26/19 11/26/19 Range/Units 09:00 09:00 WBC 16.8 H (3.8-10.6) k/uL RBC 3.05 L (3.80-5.40) m/uL Hgb 10.1 L (11.4-16.0) gm/dL Hct 32.4 L (34.0-46.0) % MCV 106.1 H (80.0-100.0) fL Sodium 132 L (137-145) mmol/L Chloride 97 L (98-107) mmol/L Creatinine 0.41 L (0.52-1.04) mg/dL Glucose 150 H (74-99) mg/dL Microbiology - Last 24 Hours (Table) 11/24/19 23:15 Blood Culture - Preliminary Blood No Growth after 24 hours Assessment and Plan Assessment: -Acute severe COPD exacerbation and an ex-smoker -Essential hypertension -Hyperlipidemia -Chronic urinary incontinence -Primary osteoarthritis -Chronic hypoxic respiratory failure on 4 L of oxygen -Bilateral pneumonitis could be influenza. Given the significant of her symptoms still need to be treated for same even though nasal swab is come back negative. As per the new ATS recommendations's -Acute hypoxic respiratory failure from above requiring BiPAP -Secondary bacterial pneumonia cannot be secluded as patient also being covered for the same. Recommendations and discussion: Recommend to continue current medications, management, and symptomatic treatment. Patient remains on bronchodilators along with IV steroids and oral antibiotics in the form of Zithromax along with IV antibiotics in the form of ceftriaxone and will continue at this time. Although influenza testing is negative patient will remain on Tamiflu she was symptomatic. Pulmonary is following. Patient is refusing a BiPAP at this time and is currently on 4 L of oxygen via nasal cannula. Patient has little urine output and retaining at times and an indwelling Lr catheter will be placed. Most recent magnesium level was low and being rechecked and will be replaced accordingly. Will repeat a.m. labs.
[2019-11-26] MEDS: MAGNESIUM SULFATE-D5W PMX 1 GM in DEXTROSE/WATER 1 100ML.BAG IVPB SCH ×2 (17:36→17:41)
[2019-11-26] MEDS: MONTELUKAST 10 MG TAB PO SCH (21:40)
[2019-11-26] MEDS: PRAVASTATIN SODIUM 40 MG TAB PO SCH (21:41)
[2019-11-26] MEDS: AZITHROMYCIN 500 MG TAB PO SCH (21:41)
[2019-11-26] MEDS: TAMSULOSIN 0.4 MG CAP.ER.24H PO SCH (21:41)
[2019-11-27] MEDS: IPRATROPIUM-ALBUTEROL 3 ML NEB INHALATION SCH ×7 (00:10→23:38)
[2019-11-27] MEDS: methylPREDNISolone SOD SUCCI 40 MG/ML 1 ML VIAL IV SCH ×3 (00:16→15:56)
[2019-11-27] MEDS: LORazepam 0.5 MG TAB PO PRN ×2 (06:10→21:49)
[2019-11-27] MEDS: FAMOTIDINE 20 MG TAB PO SCH ×2 (07:35→21:49)
[2019-11-27] MEDS: ENOXAPARIN 40 MG/0.4 ML SYRINGE SQ SCH (07:35)
[2019-11-27] MEDS: FERROUS SULFATE 325 MG TAB PO SCH (07:36)
[2019-11-27] MEDS: LOSARTAN 50 MG TAB PO SCH (07:36)
[2019-11-27] MEDS: guaiFENesin 600 MG TABLET.ER PO SCH ×2 (07:36→21:49)
[2019-11-27] MEDS: amLODIPine 5 MG TAB PO SCH (07:36)
[2019-11-27] MEDS: LOSARTAN-HCTZ 50-12.5 MG 1 EACH TAB PO SCH (07:37)
[2019-11-27] MEDS: ACETAMINOPHEN TAB 325 MG TAB PO PRN (07:41)
[2019-11-27] MEDS: NEBIVOLOL 5 MG TAB PO SCH (07:59)
[2019-11-27] MEDS: TROSPIUM CHLORIDE 20 MG TABLET PO SCH ×2 (08:00→21:52)
[2019-11-27] MEDS: BUDESONIDE 1 MG/2 ML NEBU INHALATION SCH ×2 (08:25→20:42)
[2019-11-27] MEDS: ONDANSETRON 4 MG/2 ML VIAL IVP PRN ×4 (09:26→23:53)
[2019-11-27 09:33] LABS: ALT 13 U/L (4-34); AST 25 U/L (14-36); African American GFR (CKD) >90 (>60 ml/min/1.73 sqM); Albumin 3.8 g/dL (3.5-5.0); Alkaline Phosphatase 47 U/L (38-126); Anion Gap 3 mmol/L; Basophils % (A) 0 %; Blood Urea Nitrogen 10 mg/dL (7-17); Calcium 8.8 mg/dL (8.4-10.2); Carbon Dioxide 34 mmol/L (22-30); Chloride 95 mmol/L (98-107); Eosinophils % (A) 0 %; Glucose 146 mg/dL (74-99); HCT 33.2 % (34.0-46.0); HGB 10.3 gm/dL (11.4-16.0); Hypochromasia Slight; Lymphocytes # (A) 0.1 k/uL (1.0-4.8); Lymphocytes % (A) 1 %; MCV 106.3 fL (80.0-100.0); Macrocytosis Moderate; Mean Platelet Volume 7.8; Monocytes # (A) 0.4 k/uL (0-1.0); Monocytes % (A) 3 %; Neutrophils # (A) 13.5 k/uL (1.3-7.7); Neutrophils % (A) 96 %; Non-African American GFR(CKD) >90 (>60 ml/min/1.73 sqM); Platelet Count 271 k/uL (150-450); Potassium 4.4 mmol/L (3.5-5.1); RBC 3.12 m/uL (3.80-5.40); RDW 14.9 % (11.5-15.5); Sodium 132 mmol/L (137-145); Total Bilirubin 0.4 mg/dL (0.2-1.3); Total Protein 6.3 g/dL (6.3-8.2); WBC 14.1 k/uL (3.8-10.6)
[2019-11-27] MEDS: PANTOPRAZOLE 40 MG TABLET PO SCH (15:56)
--- NOTE | 2019-11-27 16:02 | P.PN ---
Subjective Progress Note Date: 11/27/19 Principal diagnosis: This is a 69-year-old female who was recently admitted with worsening shortness of breath and a cough along with chills and body aches all over and is being dwight sely monitored. Patient continues to be extremely short of breath and quite anxious today. Patient also complaining of some nausea today. Zofran was ordered. Patient's urine output is diminished and will initiate Lr catheter to monitor strict I&O's. Patient is currently on Flomax and will continue at this time. Patient remains on bronchodilators, IV steroids, and also with IV ceftriaxone and oral Zithromax and will continue at this time. Dr. Mcwilliams is following. Patient was using a BiPAP last night and is currently on 4 L of oxygen and states she does not want to use the BiPAP. Will continue to monitor closely. 11/27/2019 Patient is seen and evaluated in follow-up today continuing to be short of breath and dyspneic on any form of exertion. Patient is currently maintained on 6 L of oxygen via nasal cannula. Patient continues to refuse BiPAP. Pulmonary Dr. Mcwilliams is following. Patient's CO2 is 34. Repeat magnesium showing 2.0. Patient is maintained with an indwelling Lr catheter and will continue at this time for strict I&O's as patient was not putting out a lot of urine. Patient does have a history of urinary incontinence and is currently maintained on Flomax. Patient is maintained on IV antibiotics in the form of ceftriaxone along with oral Zithromax and will continue at this time. Patient receiving bronchodilators along with IV steroids. Will continue to monitor closely. Objective - Vital Signs Vital signs: Vital Signs Temp 97.7 F 11/27/19 12:27 Pulse 104 H 11/27/19 15:20 Resp 22 11/27/19 12:27 BP 128/82 11/27/19 12:27 Pulse Ox 95 11/27/19 12:27 Intake & Output 11/26/19 11/27/19 11/27/19 18:59 06:59 18:59 Intake Total 200 200 Output Total 750 1800 300 Balance -550 -1600 -300 Intake: Oral 200 200 Output: Urine 750 1800 300 Other: Voiding Method Self-Catheterization Indwelling Catheter Indwelling Catheter # Bowel Movements 0 - Exam VITAL SIGNS: Temp is 97.7F, pulse is 108, respirations are 22, blood pressure is 128/82, oxygen saturation is 95% on 6 L via nasal cannula. GENERAL: Awake, alert and oriented 3, sitting up in the bed, well-nourished, well-developed EYES: Pupils equal. Conjunctiva normal. HEENT: External appearance of nose and ears normal, oral cavity grossly normal. NECK: JVD not raised; masses not palpable. HEART: S1, S2 are muffled LUNGS: Diminished breath sounds at the bases with some scattered rhonchi and crackles noted. Expiratory wheezing noted on exam. ABDOMEN: Soft, nontender, non-tender, no masses palpable. PSYCH: Alert and oriented x3, mood and affect: anxious MUSCULOSKELETAL: Pain in her joints in achiness in cervical muscles with this acute episode NEUROLOGICAL: Cranial nerves grossly intact; no facial asymmetry, power and sensation grossly intact. LYMPHATICS: No lymph nodes palpable in the axilla and neck - Labs CBC & Chem 7: 11/27/19 08:54 11/27/19 08:54 Labs: Abnormal Lab Results - Last 24 Hours (Table) 11/27/19 11/27/19 Range/Units 08:54 08:54 WBC 14.1 H (3.8-10.6) k/uL RBC 3.12 L (3.80-5.40) m/uL Hgb 10.3 L (11.4-16.0) gm/dL Hct 33.2 L (34.0-46.0) % MCV 106.3 H (80.0-100.0) fL Neutrophils # 13.5 H (1.3-7.7) k/uL Lymphocytes # 0.1 L (1.0-4.8) k/uL Sodium 132 L (137-145) mmol/L Chloride 95 L (98-107) mmol/L Carbon Dioxide 34 H (22-30) mmol/L Creatinine 0.51 L (0.52-1.04) mg/dL Glucose 146 H (74-99) mg/dL Microbiology - Last 24 Hours (Table) 11/24/19 23:15 Blood Culture - Preliminary Blood No Growth after 48 hours Assessment and Plan Assessment: -Acute severe COPD exacerbation and an ex-smoker -Essential hypertension -Hyperlipidemia -Chronic urinary incontinence -Primary osteoarthritis -Chronic hypoxic respiratory failure on 4 L of oxygen -Bilateral pneumonitis could be influenza. Given the significant of her symptoms still need to be treated for same even though nasal swab is come back negative. As per the new ATS recommendations's -Acute hypoxic respiratory failure from above requiring BiPAP -Secondary bacterial pneumonia cannot be excluded as patient also being covered for the same. Recommendations and discussion: Recommend to continue current medications, management, and symptomatic treatment. Will continue to monitor closely. Patient remains on bron chodilators along with IV steroids and oral antibiotics in the form of Zithromax along with IV antibiotics in the form of ceftriaxone and will continue at this time. Pulmonary is following. Patient is refusing a BiPAP at this time and is currently on 6 L of oxygen via nasal cannula. Patient continues to be quite dyspneic and short of breath with exertion. PT/OT to evaluate the patient. Due to multiple complex medical issues prognosis is guarded. Further recommendations to follow.
[2019-11-27] MEDS: CALCIUM CARBONATE 500 MG CHEWABLE PO PRN (16:49)
[2019-11-27] MEDS ORDERED: METOCLOPRAMIDE 5 MG/ML 2 ML VIAL IVP STA (20:28)
[2019-11-27] MEDS: SODIUM CHLORIDE 0.9% 1,000 ML IV SCH ×2 (21:48→23:59)
[2019-11-27] MEDS: MONTELUKAST 10 MG TAB PO SCH (21:48)
[2019-11-27] MEDS: TAMSULOSIN 0.4 MG CAP.ER.24H PO SCH (21:49)
[2019-11-27] MEDS: AZITHROMYCIN 500 MG TAB PO SCH (21:49)
[2019-11-27] MEDS: PRAVASTATIN SODIUM 40 MG TAB PO SCH (21:49)
[2019-11-28] MEDS: methylPREDNISolone SOD SUCCI 40 MG/ML 1 ML VIAL IV SCH ×2 (00:09→08:20)
[2019-11-28] MEDS: IPRATROPIUM-ALBUTEROL 3 ML NEB INHALATION SCH ×6 (03:32→23:56)
[2019-11-28 07:46] LABS: Basophils % (A) 0 %; Eosinophils % (A) 0 %; HCT 31.1 % (34.0-46.0); HGB 9.6 gm/dL (11.4-16.0); Hypochromasia Slight; Lymphocytes # (A) 0.1 k/uL (1.0-4.8); Lymphocytes % (A) 2 %; MCH 32.5 pg (25.0-35.0); MCHC 30.8 g/dL (31.0-37.0); MCV 105.6 fL (80.0-100.0); Macrocytosis Moderate; Monocytes # (A) 0.3 k/uL (0-1.0); Monocytes % (A) 3 %; Neutrophils # (A) 8.9 k/uL (1.3-7.7); Neutrophils % (A) 95 %; Platelet Count 233 k/uL (150-450); RBC 2.94 m/uL (3.80-5.40); RDW 14.4 % (11.5-15.5); WBC 9.4 k/uL (3.8-10.6)
[2019-11-28 07:55] LABS: African American GFR (CKD) >90 (>60 ml/min/1.73 sqM); Anion Gap 1 mmol/L; Blood Urea Nitrogen 13 mg/dL (7-17); Calcium 9.1 mg/dL (8.4-10.2); Carbon Dioxide 40 mmol/L (22-30); Chloride 93 mmol/L (98-107); Glucose 148 mg/dL (74-99); Non-African American GFR(CKD) >90 (>60 ml/min/1.73 sqM); Potassium 4.6 mmol/L (3.5-5.1); Sodium 134 mmol/L (137-145)
[2019-11-28] MEDS: amLODIPine 5 MG TAB PO SCH (08:19)
[2019-11-28] MEDS: PANTOPRAZOLE 40 MG TABLET PO SCH ×2 (08:19→18:24)
[2019-11-28] MEDS: guaiFENesin 600 MG TABLET.ER PO SCH ×2 (08:19→21:11)
[2019-11-28] MEDS: LOSARTAN 50 MG TAB PO SCH (08:19)
[2019-11-28] MEDS: ENOXAPARIN 40 MG/0.4 ML SYRINGE SQ SCH (08:19)
[2019-11-28] MEDS: FAMOTIDINE 20 MG TAB PO SCH (08:19)
[2019-11-28] MEDS: LOSARTAN-HCTZ 50-12.5 MG 1 EACH TAB PO SCH (08:20)
[2019-11-28] MEDS: TROSPIUM CHLORIDE 20 MG TABLET PO SCH ×2 (08:20→23:21)
[2019-11-28] MEDS: NEBIVOLOL 5 MG TAB PO SCH (08:20)
[2019-11-28] MEDS: BUDESONIDE 1 MG/2 ML NEBU INHALATION SCH ×2 (08:53→19:32)
--- NOTE | 2019-11-28 10:05 | P.PN ---
Subjective Progress Note Date: 11/27/19 Principal diagnosis: Left lower lobe pneumonia likely community-acquired Acute on chronic hypoxic respiratory failure End-stage COPD oxygen and prednisone dependent Hypertension hypertensive cardiovascular disease 11/27/2019, is still have ongoing congestion cough shortness of breath denies any fever or sputum production is minimal usually scanty amount of thick tenacious, blood cultures no growth so far, 11/26/2019, patient seen eval examined during the rounds labs reviewed medications reviewed as patient did use the BiPAP last night about 4 hours she did not want to use the BiPAP anymore remains on supplemental oxygen she has bilateral wheezing, daughter is present at bedside, I have discussed with RN at length about CODE STATUS she would like to look into it This is a 69-year-old with end-stage COPD on chronic oxygen therapy she has been on 2-3 L oxygen at home she has developed progressive increased shortness of breath along with dry cough came into the hospital, patient in the ER was in extreme respiratory distress requiring BiPAP currently she has been weaned off of BiPAP on 6 L nasal cannula oxygen saturation is stable she is feeling slightly better, chest x-ray admitted for Sr. off of developing left lower lobe pneumonia Objective - Vital Signs Vital signs: Vital Signs Temp 97.6 F 11/27/19 21:09 Pulse 110 H 11/27/19 21:09 Resp 18 11/27/19 21:09 BP 132/81 11/27/19 21:09 Pulse Ox 92 L 11/27/19 21:09 Intake & Output 11/27/19 11/27/19 11/28/19 06:59 18:59 06:59 Intake Total 200 Output Total 1800 320 200 Balance -1600 -320 -200 Intake: Oral 200 Output: Urine 1800 300 200 Oral Regurgitation 20 Other: Voiding Method Indwelling Catheter Indwelling Catheter # Bowel Movements 0 - Exam - Constitutional General appearance: average body habitus, cooperative, disheveled, mild distress - EENT Eyes: EOMI, PERRLA, poor dentition, normal appearance Ears: bilateral: normal - Neck Carotids: bilateral: upstroke normal Thyroid: bilateral: normal size - Respiratory Respiratory: bilateral: diminished, wheezing (Fine bilateral), negative: CTA, dullness, rales, rhonchi - Cardiovascular Rhythm: regular Heart sounds: normal: S1, S2 - Gastrointestinal General gastrointestinal: normal bowel sounds - Integumentary Integumentary: normal - Neurologic Neurologic: CNII-XII intact - Musculoskeletal Musculoskeletal: gait normal, generalized weakness, strength equal bilaterally - Psychiatric Psychiatric: A&O x's 3, appropriate affect, intact judgment & insight - Labs CBC & Chem 7: 11/28/19 07:08 11/28/19 07:08 Labs: Abnormal Lab Results - Last 24 Hours (Table) 11/27/19 11/27/19 Range/Units 08:54 08:54 WBC 14.1 H (3.8-10.6) k/uL RBC 3.12 L (3.80-5.40) m/uL Hgb 10.3 L (11.4-16.0) gm/dL Hct 33.2 L (34.0-46.0) % MCV 106.3 H (80.0-100.0) fL Neutrophils # 13.5 H (1.3-7.7) k/uL Lymphocytes # 0.1 L (1.0-4.8) k/uL Sodium 132 L (137-145) mmol/L Chloride 95 L (98-107) mmol/L Carbon Dioxide 34 H (22-30) mmol/L Creatinine 0.51 L (0.52-1.04) mg/dL Glucose 146 H (74-99) mg/dL Microbiology - Last 24 Hours (Table) 11/24/19 23:15 Blood Culture - Preliminary Blood No Growth after 48 hours Assessment and Plan Assessment: Left lower lobe pneumonia likely community-acquired Acute on chronic hypoxic respiratory failure End-stage COPD oxygen and prednisone dependent Hypertension hypertensive cardiovascular disease Plan: Broad-spectrum antibiotics Breathing treatments IV steroids Continue BiPAP each night and when necessary during the day Supplemental oxygen DVT and peptic ulcer disease prophylaxis Further recommendations pending plan of care as per clinical response of the patient Time with Patient: Greater than 30
--- NOTE | 2019-11-28 10:06 | P.PN ---
Subjective Progress Note Date: 11/28/19 Principal diagnosis: Left lower lobe pneumonia likely community-acquired Acute on chronic hypoxic respiratory failure End-stage COPD oxygen and prednisone dependent Hypertension hypertensive cardiovascular disease 11/28/2019, labs reviewed medications reviewed, less congested today, patient remains on broad-spectrum antibiotics will get a follow-up chest x-ray 11/27/2019, is still have ongoing congestion cough shortness of breath denies any fever or sputum production is minimal usually scanty amount of thick tenacious, blood cultures no growth so far, 11/26/2019, patient seen eval examined during the rounds labs reviewed medications reviewed as patient did use the BiPAP last night about 4 hours she did not want to use the BiPAP anymore remains on supplemental oxygen she has bilateral wheezing, daughter is present at bedside, I have discussed with RN at length about CODE STATUS she would like to look into it This is a 69-year-old with end-stage COPD on chronic oxygen therapy she has been on 2-3 L oxygen at home she has developed progressive increased shortness of breath along with dry cough came into the hospital, patient in the ER was in extreme respiratory distress requiring BiPAP currently she has been weaned off of BiPAP on 6 L nasal cannula oxygen saturation is stable she is feeling slightly better, chest x-ray admitted for Sr. off of developing left lower lobe pneumonia Objective - Vital Signs Vital signs: Vital Signs Temp 98.1 F 11/28/19 06:17 Pulse 94 11/28/19 09:09 Resp 24 11/28/19 06:17 BP 146/91 11/28/19 06:17 Pulse Ox 94 L 11/28/19 06:17 Intake & Output 11/27/19 11/28/19 11/28/19 18:59 06:59 18:59 Output Total 320 600 Balance -320 -600 Output: Urine 300 600 Oral Regurgitation 20 Other: Voiding Method Indwelling Catheter # Bowel Movements 0 - Exam - Constitutional General appearance: average body habitus, cooperative, disheveled, mild distress - EENT Eyes: EOMI, PERRLA, poor dentition, normal appearance Ears: bilateral: normal - Neck Carotids: bilateral: upstroke normal Thyroid: bilateral: normal size - Respiratory Respiratory: bilateral: diminished, wheezing (Fine bilateral), negative: CTA, dullness, rales, rhonchi - Cardiovascular Rhythm: regular Heart sounds: normal: S1, S2 - Gastrointestinal General gastrointestinal: normal bowel sounds - Integumentary Integumentary: normal - Neurologic Neurologic: CNII-XII intact - Musculoskeletal Musculoskeletal: gait normal, generalized weakness, strength equal bilaterally - Psychiatric Psychiatric: A&O x's 3, appropriate affect, intact judgment & insight - Labs CBC & Chem 7: 11/28/19 07:08 11/28/19 07:08 Labs: Abnormal Lab Results - Last 24 Hours (Table) 11/28/19 11/28/19 Range/Units 07:08 07:08 RBC 2.94 L (3.80-5.40) m/uL Hgb 9.6 L (11.4-16.0) gm/dL Hct 31.1 L (34.0-46.0) % MCV 105.6 H (80.0-100.0) fL MCHC 30.8 L (31.0-37.0) g/dL Neutrophils # 8.9 H (1.3-7.7) k/uL Lymphocytes # 0.1 L (1.0-4.8) k/uL Sodium 134 L (137-145) mmol/L Chloride 93 L (98-107) mmol/L Carbon Dioxide 40 H (22-30) mmol/L Glucose 148 H (74-99) mg/dL Microbiology - Last 24 Hours (Table) 11/24/19 23:15 Blood Culture - Preliminary Blood No Growth after 72 hours Assessment and Plan Assessment: Left lower lobe pneumonia likely community-acquired Acute on chronic hypoxic respiratory failure End-stage COPD oxygen and prednisone dependent Hypertension hypertensive cardiovascular disease Plan: Broad-spectrum antibiotics Breathing treatments IV steroids Continue BiPAP each night and when necessary during the day Supplemental oxygen DVT and peptic ulcer disease prophylaxis Further recommendations pending plan of care as per clinical response of the patient Time with Patient: Greater than 30
[2019-11-28] MEDS: FOLIC ACID 1 MG TAB PO SCH (18:24)
[2019-11-28] MEDS: THIAMINE 100 MG TAB PO SCH (18:24)
[2019-11-28] MEDS: SODIUM CHLORIDE 0.9% 1,000 ML IV SCH (18:25)
[2019-11-28] MEDS: TAMSULOSIN 0.4 MG CAP.ER.24H PO SCH (21:11)
[2019-11-28] MEDS: MONTELUKAST 10 MG TAB PO SCH (21:11)
[2019-11-28] MEDS: PRAVASTATIN SODIUM 40 MG TAB PO SCH (21:11)
[2019-11-28] MEDS: AZITHROMYCIN 500 MG TAB PO SCH (21:11)
--- NOTE | 2019-11-29 00:13 | PN ---
PROGRESS NOTE DATE OF SERVICE: 11/28/2019 This 69-year-old woman who was admitted with shortness of breath with COPD exacerbation, also ( ). The patient also on and off confusion. Patient is being closely monitored at this time. Lab chavez, WBC 9.2, hemoglobin 9.6 and MCV 105 6. Sodium 134 and influenza is negative. The rest of the cultures are negative so far. The patient also had history of vomiting. PAST MEDICAL HISTORY: Reviewed. REVIEW OF SYSTEMS: CARDIOVASCULAR: No angina. RESPIRATORY: As mentioned earlier. GI: As mentioned earlier. : No dysuria. NERVOUS SYSTEM: No numbness or weakness. CURRENT MEDICATIONS: 1. Tylenol p.r.n. 2. DuoNeb q.i.d. and p.r.n. 3. Norvasc 5 mg. 4. Zithromax 500 mg p.o. daily. 5. Pulmicort 1 mg b.i.d. 6. Calcium carbonate 1 g p.o. t.i.d. 7. Rocephin 1 g q.12 hours. 8. Lovenox 40 mg subcu daily. 9. Mucinex 1200 mg p.o. b.i.d. 10.Hyzaar 50/12.5 p.o. b.i.d. 11.Ativan p.r.n. 12.Cozaar 50 mg daily. 13.Singulair 10 mg q.h.s. 14.Bystolic 5 mg p.o. daily. 15.Zofran 4 mg IV q.6h p.r.n. 16.Protonix 40 mg p.o. b.i.d. 17.( ). 18.Prednisone 40 mg p.o. daily. 19.Flomax. 20.Sanctura. PHYSICAL EXAMINATION: Alert and oriented x3. Pulse is 94, blood pressure is 127, respiration 20, temperature 98.4, pulse ox 98% on 4 L. HEENT: Conjunctivae normal. Oral mucosa moist. NECK: No jugular venous distention. No lymph node enlargement. CARDIOVASCULAR: S1, S2. RESPIRATORY: Diminished breath sounds at the bases. Scattered rhonchi and crackles. Expiratory wheezing also present. ABDOMEN: Soft, nontender. No mass palpable. LEGS: No edema, no swelling. NERVOUS SYSTEM: Diffusely weak. LABS: WBC 9, hemoglobin 10, sodium 132. Influenza negative. ASSESSMENT: 1. Chronic obstructive pulmonary disease acute exacerbation with acute hypoxic respiratory failure with acute purulent tracheobronchitis. 2. Hypertension. 3. Gastritis. 4. Change in mental status, acute delirium. 5. Hyperlipidemia. 6. Chronic urinary incontinence. 7. Primary degenerative joint disease. 8. Chronic hypoxic respiratory failure on 4 L oxygen. 9. Bilateral pneumonia, possibly gram-negative. 10.Acute hypoxic respiratory failure. 11.Hyponatremia, multifactorial. 12.Increased random blood sugar. 13.Anemia, macrocytic. 14.NO CODE, NO CPR, NO VENT. 15.Gait dysfunction. RECOMMENDATIONS AND DISCUSSION: In this 69-year-old gentleman woman admitted with multiple complex medical issues, we will monitor the patient closely, continue the current medications, continue symptomatic treatment. I recommend to continue the current medications. Otherwise, continue empiric antibiotics. Continue the bronchodilators. Patient uses BiPAP at night. Stop the Pepcid. The importance of compliance was stressed with the patient's family, who understands and agrees. Further recommendations to follow. [id number] / IJN: [id number] /
[2019-11-29] MEDS: IPRATROPIUM-ALBUTEROL 3 ML NEB INHALATION SCH ×5 (03:43→20:05)
[2019-11-29] MEDS: BUDESONIDE 1 MG/2 ML NEBU INHALATION SCH ×2 (08:01→20:06)
[2019-11-29] MEDS: ENOXAPARIN 40 MG/0.4 ML SYRINGE SQ SCH (08:44)
[2019-11-29] MEDS: LOSARTAN 50 MG TAB PO SCH (08:44)
[2019-11-29] MEDS: PANTOPRAZOLE 40 MG TABLET PO SCH ×2 (08:44→18:02)
[2019-11-29] MEDS: MULTIVITAMINS, THERA 1 EACH TAB PO SCH (08:44)
[2019-11-29] MEDS: THIAMINE 100 MG TAB PO SCH (08:48)
[2019-11-29] MEDS: predniSONE 20 MG TAB PO SCH (08:48)
[2019-11-29] MEDS: FOLIC ACID 1 MG TAB PO SCH (08:48)
[2019-11-29] MEDS: amLODIPine 5 MG TAB PO SCH (08:48)
[2019-11-29] MEDS: guaiFENesin 600 MG TABLET.ER PO SCH ×2 (08:48→22:36)
[2019-11-29] MEDS: CALCIUM CARBONATE 500 MG CHEWABLE PO PRN (08:48)
[2019-11-29] MEDS: NEBIVOLOL 5 MG TAB PO SCH (08:49)
[2019-11-29] MEDS: LOSARTAN-HCTZ 50-12.5 MG 1 EACH TAB PO SCH (08:49)
[2019-11-29] MEDS: TROSPIUM CHLORIDE 20 MG TABLET PO SCH ×2 (08:49→22:40)
[2019-11-29] MEDS: SODIUM CHLORIDE 0.9% 1,000 ML IV SCH (17:11)
--- NOTE | 2019-11-29 21:01 | PN ---
PROGRESS NOTE DATE OF SERVICE: 11/29/2019 This 69-year-old woman was admitted with COPD acute exacerbation, acute hypoxic respiratory failure with acute purulent tracheobronchitis being closely monitored. Patient also has acute gastritis as well. Dr. Mcwilliams is following the patient from the pulmonary point of view. Hemoglobin is 9.6 at this time. Patient being closely monitored. Influenza negative. The patient had vomiting 2 days ago. No chest pain. No palpitations. PAST MEDICAL HISTORY: Reviewed. REVIEW OF SYMPTOMS: CARDIOVASCULAR: No angina or palpitations. RESPIRATIONS: As mentioned earlier. GI no nausea or vomiting. no dysuria. NERVOUS SYSTEM: No numbness or weakness. CURRENT MEDICATIONS: Reviewed and include: 1. Tylenol 325 q.6h p.r.n. 2. DuoNeb q.i.d. and p.r.n. 3. Norvasc 5 mg p.o. daily. 4. Zithromax 500 mg daily. 5. Pulmicort 1 mg b.i.d. 6. TUMS. 7. Rocephin 1 g daily. 8. Lovenox. 9. Folic acid 1 mg daily. 10.Mucinex. 11.Hyzaar 50/12.5 mg. 12.Ativan 0.5 mg. 13.Cozaar 50 mg p.o. daily. 14.Singulair. 15.Multivitamins. 16.Bystolic. 17.Zofran. 18.Protonix. 19.Pravachol. 20.Flomax. 21.Vitamin B1. 22.Doses reviewed. PHYSICAL EXAM: Patient is alert, oriented x3. Pulse is 88. Blood pressure 116/73, respiration 20, temperature 98.2, pulse ox 98% on 6 L. HEENT: Conjunctivae normal. NECK: No JVD. CARDIOVASCULAR: S1, S2. RESPIRATORY: Breath sounds diminished in the bases. Bilateral scattered rhonchi and crackles. Expiratory wheezing. ABDOMEN: Soft. Nontender. LEGS are no edema, no swelling. CENTRAL NERVOUS SYSTEM: No focal deficits. LABS: WBC 10.9, hemoglobin 9.6, sodium 134. Influenza negative. ASSESSMENT: 1. Chronic obstructive pulmonary disease acute exacerbation with acute hypoxic respiratory failure with acute purulent tracheobronchitis. 2. Hypertension. 3. Acute gastritis. 4. Change in mental status acute delirium. 5. Hyperlipidemia. 6. Chronic urinary incontinence. 7. Primary degenerative joint disease. 8. Chronic hypoxic respiratory failure on 4 L oxygen. 9. Bilateral pneumonia possibly gram-negative. 10.Acute hypoxic respiratory failure. 11.Hyponatremia, multifactorial. 12.Increased random blood sugar. 13.Anemia, macrocytic. 14.Gait dysfunction. 15.NO CODE, NO CPR, NO VENT. RECOMMENDATIONS AND DISCUSSION: In this 69-year-old woman who presented with multiple complex medical issues, we will monitor the patient closely, continue the current medications, management and symptomatic treatment. Continue the broad-spectrum IV antibiotics. Continue the rest of medications. Otherwise taper the dose of steroids and continue the rest of medication. Increase ambulation. PT, OT evaluation. Otherwise overall prognosis guarded because of multiple complex medical issues. Further recommendations to follow. MMODL / IJN: [id number] /
[2019-11-29] MEDS: AZITHROMYCIN 500 MG TAB PO SCH ×2 (22:36→22:39)
[2019-11-29] MEDS: PRAVASTATIN SODIUM 40 MG TAB PO SCH (22:36)
[2019-11-29] MEDS: TAMSULOSIN 0.4 MG CAP.ER.24H PO SCH (22:39)
[2019-11-29] MEDS: MONTELUKAST 10 MG TAB PO SCH (22:40)
[2019-11-30] MEDS: IPRATROPIUM-ALBUTEROL 3 ML NEB INHALATION SCH ×6 (00:15→20:52)
--- NOTE | 2019-11-30 00:57 | P.PN ---
Subjective Progress Note Date: 11/29/19 Principal diagnosis: Left lower lobe pneumonia likely community-acquired Acute on chronic hypoxic respiratory failure End-stage COPD oxygen and prednisone dependent Hypertension hypertensive cardiovascular disease 11/29/2019 patient seen barbra examined during the rounds he remains on supplemental oxygen she feels that his severity or shortness of breath cough congestion has improved now, 11/28/2019, labs reviewed medications reviewed, less congested today, patient remains on broad-spectrum antibiotics will get a follow-up chest x-ray 11/27/2019, is still have ongoing congestion cough shortness of breath denies any fever or sputum production is minimal usually scanty amount of thick tenacious, blood cultures no growth so far, 11/26/2019, patient seen barbra examined during the rounds labs reviewed medications reviewed as patient did use the BiPAP last night about 4 hours she did not want to use the BiPAP anymore remains on supplemental oxygen she has bilateral wheezing, daughter is present at bedside, I have discussed with RN at length about CODE STATUS she would like to look into it This is a 69-year-old with end-stage COPD on chronic oxygen therapy she has been on 2-3 L oxygen at home she has developed progressive increased shortness of breath along with dry cough came into the hospital, patient in the ER was in extreme respiratory distress requiring BiPAP currently she has been weaned off of BiPAP on 6 L nasal cannula oxygen saturation is stable she is feeling slightly better, chest x-ray admitted for Sr. off of developing left lower lobe pneumonia Objective - Vital Signs Vital signs: Vital Signs Temp 98.3 F 11/29/19 15:17 Pulse 90 11/29/19 20:20 Resp 18 11/29/19 16:00 BP 116/73 11/29/19 15:17 Pulse Ox 97 11/29/19 20:07 Intake & Output 11/29/19 11/29/19 11/30/19 06:59 18:59 06:59 Intake Total 1750 Output Total 1101 900 Balance -1101 850 Intake: Oral 1750 Output: Urine 1075 900 Straight 450 Post Void Residual 26 Other: # Voids 0 2 - Exam - Constitutional General appearance: average body habitus, cooperative, disheveled, mild distress - EENT Eyes: EOMI, PERRLA, poor dentition, normal appearance Ears: bilateral: normal - Neck Carotids: bilateral: upstroke normal Thyroid: bilateral: normal size - Respiratory Respiratory: bilateral: diminished, wheezing (Fine bilateral), negative: CTA, dullness, rales, rhonchi - Cardiovascular Rhythm: regular Heart sounds: normal: S1, S2 - Gastrointestinal General gastrointestinal: normal bowel sounds - Integumentary Integumentary: normal - Neurologic Neurologic: CNII-XII intact - Musculoskeletal Musculoskeletal: gait normal, generalized weakness, strength equal bilaterally - Psychiatric Psychiatric: A&O x's 3, appropriate affect, intact judgment & insight - Labs CBC & Chem 7: 11/28/19 07:08 11/28/19 07:08 Labs: Microbiology - Last 24 Hours (Table) 11/24/19 23:15 Blood Culture - Preliminary Blood No Growth after 96 hours Assessment and Plan Assessment: Left lower lobe pneumonia likely community-acquired Acute on chronic hypoxic respiratory failure 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
[2019-11-30] MEDS: guaiFENesin 600 MG TABLET.ER PO SCH ×2 (07:22→20:45)
[2019-11-30] MEDS: PANTOPRAZOLE 40 MG TABLET PO SCH ×2 (07:22→16:37)
[2019-11-30] MEDS: ENOXAPARIN 40 MG/0.4 ML SYRINGE SQ SCH (07:22)
[2019-11-30] MEDS: LOSARTAN 50 MG TAB PO SCH (07:23)
[2019-11-30] MEDS: NEBIVOLOL 5 MG TAB PO SCH (07:24)
[2019-11-30] MEDS: TROSPIUM CHLORIDE 20 MG TABLET PO SCH ×2 (07:24→23:47)
[2019-11-30] MEDS: BUDESONIDE 1 MG/2 ML NEBU INHALATION SCH ×2 (08:56→20:52)
[2019-11-30] MEDS: SODIUM CHLORIDE 0.9% 1,000 ML IV SCH (09:21)
[2019-11-30] MEDS: amLODIPine 5 MG TAB PO SCH (09:23)
[2019-11-30] MEDS: LOSARTAN-HCTZ 50-12.5 MG 1 EACH TAB PO SCH (09:23)
[2019-11-30] MEDS: predniSONE 20 MG TAB PO SCH (09:24)
[2019-11-30] MEDS ORDERED: BISACODYL 5 MG TABLET.DR PO PRN (10:18)
[2019-11-30] MEDS: FOLIC ACID 1 MG TAB PO SCH (11:46)
[2019-11-30] MEDS: THIAMINE 100 MG TAB PO SCH (11:46)
[2019-11-30] MEDS: MULTIVITAMINS, THERA 1 EACH TAB PO SCH (11:46)
--- NOTE | 2019-11-30 15:34 | P.PN ---
Subjective Progress Note Date: 11/30/19 Principal diagnosis: Left lower lobe pneumonia likely community-acquired Acute on chronic hypoxic respiratory failure End-stage COPD oxygen and prednisone dependent Hypertension hypertensive cardiovascular disease 11/30/2019, patient seen barbra examined during the rounds labs reviewed medications reviewed patient has been breathing relatively better decrease cough and congestion, daughter is present along with is present at the bedside care plan discussed with them, agree with discharge planning for tomorrow 11/29/2019 patient seen barbra examined during the rounds he remains on supplemental oxygen she feels that his severity or shortness of breath cough congestion has improved now, 11/28/2019, labs reviewed medications reviewed, less congested today, patient remains on broad-spectrum antibiotics will get a follow-up chest x-ray 11/27/2019, is still have ongoing congestion cough shortness of breath denies any fever or sputum production is minimal usually scanty amount of thick tenacious, blood cultures no growth so far, 11/26/2019, patient seen barbra examined during the rounds labs reviewed medications reviewed as patient did use the BiPAP last night about 4 hours she did not want to use the BiPAP anymore remains on supplemental oxygen she has bilateral wheezing, daughter is present at bedside, I have discussed with RN at length about CODE STATUS she would like to look into it This is a 69-year-old with end-stage COPD on chronic oxygen therapy she has been on 2-3 L oxygen at home she has developed progressive increased shortness of breath along with dry cough came into the hospital, patient in the ER was in extreme respiratory distress requiring BiPAP currently she has been weaned off of BiPAP on 6 L nasal cannula oxygen saturation is stable she is feeling slightly better, chest x-ray admitted for Sr. off of developing left lower lobe pneumonia Objective - Vital Signs Vital signs: Vital Signs Temp 97 F L 11/30/19 07:21 Pulse 92 11/30/19 12:26 Resp 20 11/30/19 07:21 BP 116/69 11/30/19 09:00 Pulse Ox 94 L 11/30/19 07:21 Intake & Output 11/29/19 11/30/19 11/30/19 18:59 06:59 18:59 Intake Total 1750 100 Output Total 900 700 Balance 850 -600 Intake: Oral 1750 100 Output: Urine 900 700 Other: # Voids 2 1 - Exam - Constitutional General appearance: average body habitus, cooperative, disheveled, mild distress - EENT Eyes: EOMI, PERRLA, poor dentition, normal appearance Ears: bilateral: normal - Neck Carotids: bilateral: upstroke normal Thyroid: bilateral: normal size - Respiratory Respiratory: bilateral: diminished, wheezing (Fine bilateral), negative: CTA, dullness, rales, rhonchi - Cardiovascular Rhythm: regular Heart sounds: normal: S1, S2 - Gastrointestinal General gastrointestinal: normal bowel sounds - Integumentary Integumentary: normal - Neurologic Neurologic: CNII-XII intact - Musculoskeletal Musculoskeletal: gait normal, generalized weakness, strength equal bilaterally - Psychiatric Psychiatric: A&O x's 3, appropriate affect, intact judgment & insight - Labs CBC & Chem 7: 11/28/19 07:08 11/28/19 07:08 Labs: Microbiology - Last 24 Hours (Table) 11/24/19 23:15 Blood Culture - Preliminary Blood No Growth after 120 hours Assessment and Plan Assessment: Left lower lobe pneumonia likely community-acquired Acute on chronic hypoxic respiratory failure 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
[2019-11-30] MEDS: LORazepam 0.5 MG TAB PO PRN (16:37)
--- NOTE | 2019-11-30 17:07 | P.PN ---
Subjective Progress Note Date: 11/30/19 Principal diagnosis: This is a 69-year-old female who was recently admitted with worsening shortness of breath and a cough along with chills and body aches all over and is being dwight sely monitored. Patient continues to be extremely short of breath and quite anxious today. Patient also complaining of some nausea today. Zofran was ordered. Patient's urine output is diminished and will initiate Lr catheter to monitor strict I&O's. Patient is currently on Flomax and will continue at this time. Patient remains on bronchodilators, IV steroids, and also with IV ceftriaxone and oral Zithromax and will continue at this time. Dr. Mcwilliams is following. Patient was using a BiPAP last night and is currently on 4 L of oxygen and states she does not want to use the BiPAP. Will continue to monitor closely. 11/27/2019 Patient is seen and evaluated in follow-up today continuing to be short of breath and dyspneic on any form of exertion. Patient is currently maintained on 6 L of oxygen via nasal cannula. Patient continues to refuse BiPAP. Pulmonary Dr. Mcwilliams is following. Patient's CO2 is 34. Repeat magnesium showing 2.0. Patient is maintained with an indwelling Lr catheter and will continue at this time for strict I&O's as patient was not putting out a lot of urine. Patient does have a history of urinary incontinence and is currently maintained on Flomax. Patient is maintained on IV antibiotics in the form of ceftriaxone along with oral Zithromax and will continue at this time. Patient receiving bronchodilators along with IV steroids. Will continue to monitor closely. 11/30/2019 This is a 69-year-old woman who was recently admitted with COPD acute exa cerbation, acute hypoxic respiratory failure with acute pearly and tracheobronchitis and is being closely monitored. Dr. Mcwilliams is following. Patient is maintained on high flow oxygen at 6 L and continues to have shortness of breath. Patient states that her breathing has slightly improved and normally uses 4 L of oxygen at home. Patient to work with physical therapy as she has not gotten out out of bed much due to extreme shortness of breath with exertion. Patient also states that she has not had a bowel movement in over 5 days and is requesting something. Dulcolax was ordered. Will continue to monitor closely. No reports of chest pain or palpitations. Patient is afebrile. No reports of nausea or vomiting and patient is tolerating diet. Objective - Vital Signs Vital signs: Vital Signs Temp 98.0 F 11/30/19 13:51 Pulse 83 11/30/19 16:35 Resp 18 11/30/19 16:35 BP 106/66 11/30/19 13:51 Pulse Ox 94 L 11/30/19 16:02 Intake & Output 11/29/19 11/30/19 11/30/19 18:59 06:59 18:59 Intake Total 1750 100 540 Output Total 013 774 9930 Balance 850 -600 -660 Intake: Oral 1750 100 540 Output: Urine 852 606 5693 Other: # Voids 2 1 - Exam VITAL SIGNS: Temp is 98.0F, pulse is 92, respirations are 14, blood pressure is 106/66, oxygen saturation is 97 % on 6 L via nasal cannula. GENERAL: Awake, alert and oriented 3, sitting up in the bed, well-nourished, well-developed EYES: Pupils equal. Conjunctiva normal. HEENT: External appearance of nose and ears normal, oral cavity grossly normal. NECK: JVD not raised; masses not palpable. HEART: S1, S2 are muffled LUNGS: Diminished breath sounds at the bases with some scattered rhonchi and crackles noted. Expiratory wheezing noted on exam. ABDOMEN: Soft, nontender, non-tender, no masses palpable. PSYCH: Alert and oriented x3, mood and affect: anxious MUSCULOSKELETAL: Pain in her joints in achiness in cervical muscles with this acute episode NEUROLOGICAL: Cranial nerves grossly intact; no facial asymmetry, power and sensation grossly intact. LYMPHATICS: No lymph nodes palpable in the axilla and neck - Labs CBC & Chem 7: 11/28/19 07:08 11/28/19 07:08 Labs: Microbiology - Last 24 Hours (Table) 11/24/19 23:15 Blood Culture - Preliminary Blood No Growth after 120 hours Assessment and Plan Assessment: -Chronic obstructive pulmonary disease acute exacerbation with acute hypoxic respiratory failure with acute pearly and tracheobronchitis -Essential hypertension -Hyperlipidemia -Acute gastritis -Hyponatremia -Increased random blood sugar -Anemia, macrocytic -Gait dysfunction -Change in mental status, acute delirium -Chronic urinary incontinence -Primary osteoarthritis -Chronic hypoxic respiratory failure on 4 L of oxygen -Bilateral pneumonitis possibly gram-negative -Acute hypoxic respiratory failure from above requiring BiPAP -Secondary bacterial pneumonia cannot be excluded as patient also being covered for the same. -No code, no CPR, no vent Recommendations and discussion: Recommend to continue current medications, management, and symptomatic treatment. Will continue to monitor closely. Patient remains on bronchodilat ors along with IV steroids and oral antibiotics in the form of Zithromax along with IV antibiotics in the form of ceftriaxone and will continue at this time. Pulmonary is following. Due to multiple complex medical issues prognosis is guarded. Further recommendations to follow. Possible discharge in 24 hours.
[2019-11-30] MEDS: ACETAMINOPHEN TAB 325 MG TAB PO PRN (20:44)
[2019-11-30] MEDS: MONTELUKAST 10 MG TAB PO SCH (20:45)
[2019-11-30] MEDS: TAMSULOSIN 0.4 MG CAP.ER.24H PO SCH (20:46)
[2019-11-30] MEDS: PRAVASTATIN SODIUM 40 MG TAB PO SCH (20:46)
[2019-11-30 22:04] VITALS: TEMP 97.5
[2019-12-01] MEDS: IPRATROPIUM-ALBUTEROL 3 ML NEB INHALATION SCH ×4 (00:38→12:59)
[2019-12-01 05:08] VITALS: BP 134/87
[2019-12-01] MEDS: PANTOPRAZOLE 40 MG TABLET PO SCH (08:23)
[2019-12-01] MEDS: TROSPIUM CHLORIDE 20 MG TABLET PO SCH (08:23)
[2019-12-01] MEDS: LOSARTAN-HCTZ 50-12.5 MG 1 EACH TAB PO SCH (08:23)
[2019-12-01] MEDS: MULTIVITAMINS, THERA 1 EACH TAB PO SCH (08:23)
[2019-12-01] MEDS: guaiFENesin 600 MG TABLET.ER PO SCH (08:23)
[2019-12-01] MEDS: THIAMINE 100 MG TAB PO SCH (08:24)
[2019-12-01] MEDS: FOLIC ACID 1 MG TAB PO SCH (08:24)
[2019-12-01] MEDS: predniSONE 20 MG TAB PO SCH (08:24)
[2019-12-01] MEDS: LOSARTAN 50 MG TAB PO SCH (08:24)
[2019-12-01] MEDS: NEBIVOLOL 5 MG TAB PO SCH (08:24)
[2019-12-01] MEDS: amLODIPine 5 MG TAB PO SCH (08:24)
[2019-12-01] MEDS: ENOXAPARIN 40 MG/0.4 ML SYRINGE SQ SCH (08:25)
[2019-12-01] MEDS: BUDESONIDE 1 MG/2 ML NEBU INHALATION SCH (08:42)
[2019-12-01 08:59] VITALS: PULSE 90
[2019-12-01 09:53] VITALS: RESP 18
[2019-12-01 10:42] VITALS: BMI 29.2
--- NOTE | 2019-12-01 11:48 | P.DS ---
Providers Date of admission: 11/24/19 22:38 Expected date of discharge: 12/01/19 Attending physician: Mati Negron Consults: 11/25/19 11:43 Consult Physician Urgent Consulting Provider: Pj Mcwilliams Consult Reason/Comments: SOB, COUGH, 6L oxygen/bi-pap Do you want consulting provider notified?: Yes Primary care physician: Alex De La Torre Hospital Course: Final diagnosis -Chronic obstructive pulmonary disease acute exacerbation with acute hypoxic respiratory failure with acute purulent tracheobronchitis -Essential hypertension -Hyperlipidemia -Acute gastritis -Hyponatremia -Increased random blood sugar -Anemia, macrocytic -Gait dysfunction -Change in mental status, acute delirium -Chronic urinary incontinence -Primary osteoarthritis -Chronic hypoxic respiratory failure on 4 L of oxygen -Bilateral pneumonitis possibly gram-negative -Acute hypoxic respiratory failure from above requiring BiPAP -Secondary bacterial pneumonia cannot be excluded as patient also being covered for the same. -No code, no CPR, no vent Discharge disposition Patient is being discharged in a stable condition with guarded prognosis to [facility] for continued PT/OT therapy. Patient will follow-up with Dr. De La Torre in the outpatient setting upon discharge. Patient will continue her short course of oral antibiotics in the form of Ceftin twice daily for the next 3 days and then may discontinue long with a prednisone taper. Total time taken is 35 minutes. History of present illness This is a 69-year-old female who was recently admitted with worsening shortness of breath and a cough along with chills and body aches and was being closely monitored. Patient was also found to be in acute exacerbation of COPD with acute hypoxic respiratory failure with acute purulent tracheobronchitis. Patient was treated with a course of IV Rocephin along with oral Zithromax and Tamiflu although influenza testing was negative. Patient will continue on a short course of oral antibiotics in the form of Ceftin twice daily for the next 3 days to complete the course and then may discontinue. Patient will also need continued bronchodilators along with oxygen therapy and a prednisone taper upon discharge. Patient continued to be quite weak and extremely short of breath with exertion and will be going to [facility] for continued PT/OT therapy for strength and mobility. Currently patient's condition is stable and is ready for discharge today. No reports of chest pain, worsening shortness of breath, or palpitations. Patient is afebrile. No reports of nausea or vomiting and patient is tolerating diet. Patient has a history of urinary incontinence and is maintained on Flomax and will continue at this time. Patient chronically requires 4 L of oxygen via nasal cannula and will continue at this time. Guarded prognosis. On exam vital signs are stable. Temp is 97.5F, pulse is 86, respirations are 22, blood pressure 134/87, oxygen saturation is 96% on 5 L via nasal cannula. C ardio S1, S2 are muffled. Respiratory system shows severely diminished breath sounds at the bases along with a few scattered rhonchi noted. Some expiratory wheezing noted on exam as well. Abdomen is soft and nontender. Nervous system shows mild diffuse weakness. Please refer to medication reconciliation sheet for a list of medications. Patient Condition at Discharge: Fair Plan - Discharge Summary New Discharge Prescriptions: New LORazepam [Ativan] 0.5 mg PO Q8HR PRN #2 tab PRN Reason: Anxiety Cefuroxime Axetil [Ceftin] 500 mg PO BID 3 Days #6 tab Losartan [Cozaar] 50 mg PO DAILY tab Bisacodyl [Dulcolax] 10 mg PO DAILY PRN tablet. PRN Reason: Constipation Ipratropium-Albuterol Nebulize [Duoneb 0.5 mg-3 mg/3 ml Soln] 3 ml INHALATION RT-Q4H ml Ipratropium-Albuterol Nebulize [Duoneb 0.5 mg-3 mg/3 ml Soln] 3 ml INHALATION RT-QID PRN ml PRN Reason: Shortness Of Breath Or Wheezing Tamsulosin [Flomax] 0.4 mg PO HS cap.er.24h Folic Acid 1 mg PO DAILY@1200 tab Losartan-Hctz 50-12.5 mg [Hyzaar 50-12.5] 1 each PO DAILY tab guaiFENesin [Mucinex] 1,200 mg PO Q12HR tablet.er Multivitamins, Thera [Multivitamin (formulary)] 1 each PO DAILY@1200 tab predniSONE 10 mg PO DIRECTED #30 tab Pantoprazole [Protonix] 40 mg PO AC-BID tablet. Trospium Chloride [Sanctura] 20 mg PO BID tablet Calcium Carbonate [Tums] 1,000 mg PO TID PRN chew PRN Reason: Heartburn Acetaminophen Tab [Tylenol] 325 mg PO Q6HR PRN tab PRN Reason: Fever And/ Or Pain Thiamine [Vitamin B-1] 100 mg PO DAILY@1200 tab Continue Pravastatin Sodium [Pravachol] 40 mg PO HS Budesonide [Pulmicort] 0.5 mg INHALATION RT-BID amLODIPine [Norvasc] 5 mg PO DAILY Ranitidine HCl [Zantac] 150 mg PO BID Glycopyrrolate/Formoterol Fum [Bevespi Aerosphere Inhaler] 2 puff INHALATION RT-BID Nebivolol [Bystolic] 5 mg PO DAILY Montelukast [Singulair] 10 mg PO HS #30 tab Albuterol Sulfate [Proair Hfa] 2 puff INHALATION RT-Q4H PRN PRN Reason: Shortness Of Breath Discontinued Ipratropium-Albuterol Nebulize [Duoneb 0.5 mg-3 mg/3 ml Soln] 3 ml INHALATION RT-QID PRN PRN Reason: Shortness Of Breath Or Wheezing predniSONE 5 mg PO DAILY Losartan Potassium 100 mg PO DAILY Hydrochlorothiazide [Hydrodiuril] 25 mg PO DAILY Discharge Medication List Budesonide [Pulmicort] 0.5 mg INHALATION RT-BID 12/24/18 [History] Glycopyrrolate/Formoterol Fum [Bevespi Aerosphere Inhaler] 2 puff INHALATION RT- BID 12/24/18 [History] Nebivolol [Bystolic] 5 mg PO DAILY 12/24/18 [History] Pravastatin Sodium [Pravachol] 40 mg PO HS 12/24/18 [History] Ranitidine HCl [Zantac] 150 mg PO BID 12/24/18 [History] amLODIPine [Norvasc] 5 mg PO DAILY 12/24/18 [History] Montelukast [Singulair] 10 mg PO HS #30 tab 01/06/19 [Rx] Albuterol Sulfate [Proair Hfa] 2 puff INHALATION RT-Q4H PRN 11/24/19 [History] Acetaminophen Tab [Tylenol] 325 mg PO Q6HR PRN tab 12/01/19 [Rx] Bisacodyl [Dulcolax] 10 mg PO DAILY PRN tablet. 12/01/19 [Rx] Calcium Carbonate [Tums] 1,000 mg PO TID PRN chew 12/01/19 [Rx] Cefuroxime Axetil [Ceftin] 500 mg PO BID 3 Days #6 tab 12/01/19 [Rx] Folic Acid 1 mg PO DAILY@1200 tab 12/01/19 [Rx] Ipratropium-Albuterol Nebulize [Duoneb 0.5 mg-3 mg/3 ml Soln] 3 ml INHALATION RT-Q4H ml 12/01/19 [Rx] Ipratropium-Albuterol Nebulize [Duoneb 0.5 mg-3 mg/3 ml Soln] 3 ml INHALATION RT-QID PRN ml 12/01/19 [Rx] LORazepam [Ativan] 0.5 mg PO Q8HR PRN #2 tab 12/01/19 [Rx] Losartan [Cozaar] 50 mg PO DAILY tab 12/01/19 [Rx] Losartan-Hctz 50-12.5 mg [Hyzaar 50-12.5] 1 each PO DAILY tab 12/01/19 [Rx] Multivitamins, Thera [Multivitamin (formulary)] 1 each PO DAILY@1200 tab 12/01/19 [Rx] Pantoprazole [Protonix] 40 mg PO AC-BID tablet.dr 12/01/19 [Rx] Tamsulosin [Flomax] 0.4 mg PO HS cap.er.24h 12/01/19 [Rx] Thiamine [Vitamin B-1] 100 mg PO DAILY@1200 tab 12/01/19 [Rx] Trospium Chloride [Sanctura] 20 mg PO BID tablet 12/01/19 [Rx] guaiFENesin [Mucinex] 1,200 mg PO Q12HR tablet.er 12/01/19 [Rx] predniSONE 10 mg PO DIRECTED #30 tab 12/01/19 [Rx] Follow up Appointment(s)/Referral(s): Alex De La Torre MD [Primary Care Provider] - 1-2 days Elsa Kwon, [NON-STAFF] - 1-2 Days Activity/Diet/Wound Care/Special Instructions: [facility] Continue with antibiotics for the next 3 days and then may discontinue Continue with prednisone taper until finished Follow-up with primary care provider upon discharge Continue working with PT/OT therapy for strength and mobility
== END 2019-12-01 13:35 | DRG 190 ==
LOC: EC 19:47 → 6NMEDSUR 22:38
PROVIDERS: ADMIT Hospitalist; ATTEND Hospitalist
PROC: 5A09357 Assistance with Respiratory Ventilation, Less than 24 Consecutive Hours, Continuous Positive Airway Pressure (ICD-10-PCS; principal; 2019-11-25)
DX: J44.1 Chronic obstructive pulmonary disease with (acute) exacerbation (principal); J96.21 Acute and chronic respiratory failure with hypoxia; J15.6 Pneumonia due to other Gram-negative bacteria; E87.1 Hypo-osmolality and hyponatremia; J44.0 Chronic obstructive pulmonary disease with (acute) lower respiratory infection; K29.00 Acute gastritis without bleeding; M19.91 Primary osteoarthritis, unspecified site; J11.1 Influenza due to unidentified influenza virus with other respiratory manifestations; D53.9 Nutritional anemia, unspecified; E78.5 Hyperlipidemia, unspecified; E83.42 Hypomagnesemia; E86.0 Dehydration; I11.9 Hypertensive heart disease without heart failure; R32 Unspecified urinary incontinence; R26.9 Unspecified abnormalities of gait and mobility; R41.0 Disorientation, unspecified; J20.9 Acute bronchitis, unspecified; R73.9 Hyperglycemia, unspecified; E66.9 Obesity, unspecified; Z66 Do not resuscitate; Z68.29 Body mass index [BMI] 29.0-29.9, adult; Z99.81 Dependence on supplemental oxygen; Z79.52 Long term (current) use of systemic steroids; Z79.899 Other long term (current) drug therapy; Z85.3 Personal history of malignant neoplasm of breast; Z87.891 Personal history of nicotine dependence; Z88.8 Allergy status to other drugs, medicaments and biological substances; Z87.01 Personal history of pneumonia (recurrent); Z90.49 Acquired absence of other specified parts of digestive tract; Z98.49 Cataract extraction status, unspecified eye; Z96.1 Presence of intraocular lens
CPT/HCPCS: 36410; 36415; 71046; 76937; 80048; 80053; 82550; 83605; 83735; 83880; 84145; 84484; 85025; 85027; 85610; 85730; 87040; 87502; 93005; 94640; 94660; 94760; 96361; 96365; 96366; 96375; 99291

== ENCOUNTER 2019-12-07 16:32 | Inpatient (IN) | payer MEDICARE ==
[2019-12-07] MEDS ORDERED: ALBUTEROL NEBULIZED 2.5 MG/3 ML INHALATION STA (16:47)
--- NOTE | 2019-12-07 16:52 | ED ---
SOB HPI - General Chief Complaint: Shortness of Breath Stated Complaint: Diff Breathing Source: EMS Mode of arrival: EMS Limitations: no limitations - History of Present Illness Initial Comments: This 69-year-old white female presents with a complaint of some shortness of breath. This just started a couple hours prior to arrival. She denies any cough, fever, chest pain. She does relate a history of COPD and does wear 4 L of oxygen normally. She is presenting from the [facility]. She resents via EMS. She received Solu-Medrol and route as well as a breathing treatment by EMS. She also had a breathing treatment prior to EMS arrival. She states that she is feeling improved currently. She does have some bilateral ankle edema which is new for her. She denies any previous similar history. She denies any history of congestive heart failure. There is no leg pain. She denies any history of DVT or PE. No other complaints or modifying factors. - Related Data Home Medications Medication Instructions Recorded Confirmed Budesonide [Pulmicort] 0.5 mg INHALATION RT-BID 12/24/18 11/24/19 Glycopyrrolate/Formoterol Fum 2 puff INHALATION RT-BID 12/24/18 11/24/19 [Bevespi Aerosphere Inhaler] Nebivolol [Bystolic] 5 mg PO DAILY 12/24/18 11/24/19 Pravastatin Sodium [Pravachol] 40 mg PO HS 12/24/18 11/24/19 Ranitidine HCl [Zantac] 150 mg PO BID 12/24/18 11/24/19 amLODIPine [Norvasc] 5 mg PO DAILY 12/24/18 11/24/19 Albuterol Sulfate [Proair Hfa] 2 puff INHALATION RT-Q4H PRN 11/24/19 11/24/19 Previous Rx's Medication Instructions Recorded Montelukast [Singulair] 10 mg PO HS #30 tab 01/06/19 Acetaminophen Tab [Tylenol] 325 mg PO Q6HR PRN tab 12/01/19 Bisacodyl [Dulcolax] 10 mg PO DAILY PRN tablet. 12/01/19 Calcium Carbonate [Tums] 1,000 mg PO TID PRN chew 12/01/19 Cefuroxime Axetil [Ceftin] 500 mg PO BID 3 Days #6 tab 12/01/19 Folic Acid 1 mg PO DAILY@1200 tab 12/01/19 Ipratropium-Albuterol Nebulize 3 ml INHALATION RT-Q4H ml 12/01/19 [Duoneb 0.5 mg-3 mg/3 ml Soln] Ipratropium-Albuterol Nebulize 3 ml INHALATION RT-QID PRN ml 12/01/19 [Duoneb 0.5 mg-3 mg/3 ml Soln] LORazepam [Ativan] 0.5 mg PO Q8HR PRN #2 tab 12/01/19 Losartan [Cozaar] 50 mg PO DAILY tab 12/01/19 Losartan-Hctz 50-12.5 mg [Hyzaar 1 each PO DAILY tab 12/01/19 50-12.5] Multivitamins, Thera [Multivitamin 1 each PO DAILY@1200 tab 12/01/19 (formulary)] Pantoprazole [Protonix] 40 mg PO AC-BID tablet. 12/01/19 Tamsulosin [Flomax] 0.4 mg PO HS cap.er.24h 12/01/19 Thiamine [Vitamin B-1] 100 mg PO DAILY@1200 tab 12/01/19 Trospium Chloride [Sanctura] 20 mg PO BID tablet 12/01/19 guaiFENesin [Mucinex] 1,200 mg PO Q12HR tablet.er 12/01/19 predniSONE 10 mg PO DIRECTED #30 tab 12/01/19 Allergies Allergy/AdvReac Type Severity Reaction Status Date / Time codeine AdvReac Nausea & Verified 11/24/19 22:51 Vomiting Review of Systems ROS Statement: Those systems with pertinent positive or pertinent negative responses have been documented in the HPI. ROS Other: All systems not noted in ROS Statement are negative. Past Medical History Past Medical History: Cancer, COPD, Hyperlipidemia, Hypertension, Pneumonia Additional Past Medical History / Comment(s): BREAST CANCER 2013; PATIENT WEARS 4L OF OXYGEN AT HOME History of Any Multi-Drug Resistant Organisms: None Reported Past Surgical History: Adenoidectomy, Appendectomy, Tonsillectomy Additional Past Surgical History / Comment(s): LEFT BREAST MASECTOMY, Cataract surgery Past Anesthesia/Blood Transfusion Reactions: No Reported Reaction Past Psychological History: No Psychological Hx Reported Smoking Status: Former smoker Past Alcohol Use History: None Reported Past Drug Use History: None Reported General Exam - General Exam Comments Initial Comments: GENERAL: The patient is well nourished and well hydrated. VITAL SIGNS: Heart rate, blood pressure, respiratory rate reviewed as recorded in nurse's notes. EYES: Pupils are round and reactive. Extraocular movements are intact. No conjunctival / lid redness or swelling. ENT: No external evidence of injury, swelling, or ecchymosis. Airway is patent. Throat is clear. NECK: Nontender. No swelling or evidence of injury. No subcutaneous emphysema. Trachea is midline. No thyroid mass. HEART: Regular rate and rhythm. Good peripheral pulses. LUNGS/CHEST: Mild wheezing noted bilaterally. No ecchymosis, subcutaneous emphysema, or tenderness. ABDOMEN: Abdomen soft without tenderness. No palpable masses or organomegaly. No peritoneal signs. No abdominal wall swelling or ecchymosis. EXTREMITIES: No extremity tenderness. Normal muscle tone and function. No thoracolumbar tenderness. There is mild lower extremity pitting edema in the ankles. NEUROLOGIC: Sensation is grossly intact. Cranial nerve exam reveals face is symmetrical, tongue is midline, speech is clear. SKIN: No abrasions or ecchymosis is noted. No induration or masses noted. PSYCHIATRIC: Alert and oriented. Appropriate behavior and judgment. Limitations: no limitations Course Vital Signs 12/07/19 12/07/19 12/07/19 16:34 16:39 16:55 Temperature 96.9 F L Pulse Rate 111 H 102 H 113 H Respiratory 24 18 Rate Blood Pressure 118/72 O2 Sat by Pulse 98 98 Oximetry 12/07/19 12/07/19 12/07/19 17:00 17:14 17:30 Temperature Pulse Rate 105 H 110 H 108 H Respiratory 15 18 Rate Blood Pressure 118/72 107/82 O2 Sat by Pulse 99 88 L Oximetry Medical Decision Making - Medical Decision Making The patient was seen and examined. All diagnostics were reviewed. An IV was established. The EKG shows a sinus tachycardia at a rate of 116. There is no acute ST-T wave changes identified. The GA intervals 138, QRS duration is 84, and the QTC intervals 442. She receives another albuterol breathing treatment. She is continued on oxygen. Steroids are not administered as she did receive some enroute. The patient does have some hyponatremia as well as some leukocytosis another laboratory abnormalities, please see report for details. The chest x-ray did not show any acute abnormalities. The d-dimer is elevated. She does have a computed tomography scan of the thorax with contrast and this cannot exclude the possibility of a PE. Overall it was a suboptimal study. Patient is started on some heparin. It is felt as though she likely does have an exacerbation of her COPD. Additional studies looking into possible pulmonary embolism may be necessary. It is felt as though she would require admission to the hospital and she is agreeable. Approximately 30 minutes of critical care time was utilized and the treatment of the patient. Case is discussed with Dr. Sanchez and he is agreeable with admission. - Lab Data Result diagrams: 12/07/19 16:41 12/07/19 16:41 Lab Results 12/07/19 12/07/19 12/07/19 Range/Units 16:41 16:41 16:41 WBC 16.4 H (3.8-10.6) k/uL RBC 3.43 L (3.80-5.40) m/uL Hgb 11.3 L (11.4-16.0) gm/dL Hct 35.2 (34.0-46.0) % MCV 102.5 H (80.0-100.0) fL MCH 32.9 (25.0-35.0) pg MCHC 32.1 (31.0-37.0) g/dL RDW 14.8 (11.5-15.5) % Plt Count 289 (150-450) k/uL Neutrophils % 93 % Lymphocytes % 2 % Monocytes % 4 % Eosinophils % 1 % Basophils % 0 % Neutrophils # 15.2 H (1.3-7.7) k/uL Lymphocytes # 0.3 L (1.0-4.8) k/uL Monocytes # 0.7 (0-1.0) k/uL Eosinophils # 0.1 (0-0.7) k/uL Basophils # 0.0 (0-0.2) k/uL Macrocytosis Slight PT 9.9 (9.0-12.0) sec INR 0.9 (<1.2) APTT 19.0 L (22.0-30.0) sec D-Dimer 1.32 H (<0.60) mg/L FEU Sodium 129 L (137-145) mmol/L Potassium 4.7 (3.5-5.1) mmol/L Chloride 88 L (98-107) mmol/L Carbon Dioxide 37 H (22-30) mmol/L Anion Gap 4 mmol/L BUN 17 (7-17) mg/dL Creatinine 0.48 L (0.52-1.04) mg/dL Est GFR (CKD-EPI)AfAm >90 (>60 ml/min/1.73 sqM) Est GFR (CKD-EPI)NonAf >90 (>60 ml/min/1.73 sqM) Glucose 220 H (74-99) mg/dL Plasma Lactic Acid Micah (0.7-2.0) mmol/L Calcium 9.0 (8.4-10.2) mg/dL Magnesium 2.2 (1.6-2.3) mg/dL Total Bilirubin 0.4 (0.2-1.3) mg/dL AST 30 (14-36) U/L ALT 34 (4-34) U/L Alkaline Phosphatase 61 (38-126) U/L Troponin I (0.000-0.034) ng/mL NT-Pro-B Natriuret Pep pg/mL Total Protein 6.3 (6.3-8.2) g/dL Albumin 4.1 (3.5-5.0) g/dL Influenza Type A RNA (Not Detectd) Influenza Type B (PCR) (Not Detectd) 12/07/19 12/07/19 12/07/19 Range/Units 16:41 16:41 16:41 WBC (3.8-10.6) k/uL RBC (3.80-5.40) m/uL Hgb (11.4-16.0) gm/dL Hct (34.0-46.0) % MCV (80.0-100.0) fL MCH (25.0-35.0) pg MCHC (31.0-37.0) g/dL RDW (11.5-15.5) % Plt Count (150-450) k/uL Neutrophils % % Lymphocytes % % Monocytes % % Eosinophils % % Basophils % % Neutrophils # (1.3-7.7) k/uL Lymphocytes # (1.0-4.8) k/uL Monocytes # (0-1.0) k/uL Eosinophils # (0-0.7) k/uL Basophils # (0-0.2) k/uL Macrocytosis PT (9.0-12.0) sec INR (<1.2) APTT (22.0-30.0) sec D-Dimer (<0.60) mg/L FEU Sodium (137-145) mmol/L Potassium (3.5-5.1) mmol/L Chloride (98-107) mmol/L Carbon Dioxide (22-30) mmol/L Anion Gap mmol/L BUN (7-17) mg/dL Creatinine (0.52-1.04) mg/dL Est GFR (CKD-EPI)AfAm (>60 ml/min/1.73 sqM) Est GFR (CKD-EPI)NonAf (>60 ml/min/1.73 sqM) Glucose (74-99) mg/dL Plasma Lactic Acid Micah 1.3 (0.7-2.0) mmol/L Calcium (8.4-10.2) mg/dL Magnesium (1.6-2.3) mg/dL Total Bilirubin (0.2-1.3) mg/dL AST (14-36) U/L ALT (4-34) U/L Alkaline Phosphatase (38-126) U/L Troponin I <0.012 (0.000-0.034) ng/mL NT-Pro-B Natriuret Pep 81 pg/mL Total Protein (6.3-8.2) g/dL Albumin (3.5-5.0) g/dL Influenza Type A RNA (Not Detectd) Influenza Type B (PCR) (Not Detectd) 12/07/19 Range/Units 17:01 WBC (3.8-10.6) k/uL RBC (3.80-5.40) m/uL Hgb (11.4-16.0) gm/dL Hct (34.0-46.0) % MCV (80.0-100.0) fL MCH (25.0-35.0) pg MCHC (31.0-37.0) g/dL RDW (11.5-15.5) % Plt Count (150-450) k/uL Neutrophils % % Lymphocytes % % Monocytes % % Eosinophils % % Basophils % % Neutrophils # (1.3-7.7) k/uL Lymphocytes # (1.0-4.8) k/uL Monocytes # (0-1.0) k/uL Eosinophils # (0-0.7) k/uL Basophils # (0-0.2) k/uL Macrocytosis PT (9.0-12.0) sec INR (<1.2) APTT (22.0-30.0) sec D-Dimer (<0.60) mg/L FEU Sodium (137-145) mmol/L Potassium (3.5-5.1) mmol/L Chloride (98-107) mmol/L Carbon Dioxide (22-30) mmol/L Anion Gap mmol/L BUN (7-17) mg/dL Creatinine (0.52-1.04) mg/dL Est GFR (CKD-EPI)AfAm (>60 ml/min/1.73 sqM) Est GFR (CKD-EPI)NonAf (>60 ml/min/1.73 sqM) Glucose (74-99) mg/dL Plasma Lactic Acid Micah (0.7-2.0) mmol/L Calcium (8.4-10.2) mg/dL Magnesium (1.6-2.3) mg/dL Total Bilirubin (0.2-1.3) mg/dL AST (14-36) U/L ALT (4-34) U/L Alkaline Phosphatase (38-126) U/L Troponin I (0.000-0.034) ng/mL NT-Pro-B Natriuret Pep pg/mL Total Protein (6.3-8.2) g/dL Albumin (3.5-5.0) g/dL Influenza Type A RNA Not Detected (Not Detectd) Influenza Type B (PCR) Not Detected (Not Detectd) Disposition Clinical Impression: Acute exacerbation of chronic obstructive airways disease, Anemia, Hyponatremia, Acute respiratory failure, Pulmonary embolism, Leukocytosis, Hyperglycemia, Hypochloremia Disposition: ADMITTED IP TO THIS HOSP Condition: Fair Is patient prescribed a controlled substance at d/c from ED?: No Time of Disposition: 20:28 Decision Date: 12/07/19 Decision Time: 20:28
[2019-12-07 17:01] LABS: Basophils % (A) 0 %; Eosinophils # (A) 0.1 k/uL (0-0.7); Eosinophils % (A) 1 %; HCT 35.2 % (34.0-46.0); HGB 11.3 gm/dL (11.4-16.0); Lymphocytes # (A) 0.3 k/uL (1.0-4.8); Lymphocytes % (A) 2 %; MCH 32.9 pg (25.0-35.0); MCHC 32.1 g/dL (31.0-37.0); MCV 102.5 fL (80.0-100.0); Macrocytosis Slight; Mean Platelet Volume 8.4; Monocytes # (A) 0.7 k/uL (0-1.0); Monocytes % (A) 4 %; Neutrophils # (A) 15.2 k/uL (1.3-7.7); Neutrophils % (A) 93 %; Platelet Count 289 k/uL (150-450); RBC 3.43 m/uL (3.80-5.40); RDW 14.8 % (11.5-15.5); WBC 16.4 k/uL (3.8-10.6)
[2019-12-07 17:10] LABS: ALT 34 U/L (4-34); AST 30 U/L (14-36); African American GFR (CKD) >90 (>60 ml/min/1.73 sqM); Albumin 4.1 g/dL (3.5-5.0); Alkaline Phosphatase 61 U/L (38-126); Anion Gap 4 mmol/L; Blood Urea Nitrogen 17 mg/dL (7-17); Carbon Dioxide 37 mmol/L (22-30); Chloride 88 mmol/L (98-107); Glucose 220 mg/dL (74-99); Magnesium 2.2 mg/dL (1.6-2.3); Non-African American GFR(CKD) >90 (>60 ml/min/1.73 sqM); Potassium 4.7 mmol/L (3.5-5.1); Sodium 129 mmol/L (137-145); Total Bilirubin 0.4 mg/dL (0.2-1.3); Total Protein 6.3 g/dL (6.3-8.2)
--- NOTE | 2019-12-07 17:11 | XR ---
EXAMINATION TYPE: XR chest 1V portable DATE OF EXAM: 12/07/2019 Comparison: 11/24/2019 Clinical History: 69 year-old female shortness of breath Findings: Heart normal size. Atherosclerotic arch calcifications. Mild interstitial prominence. Biapical pleura l-parenchymal scarring. No consolidation or pleural effusion. Hyperinflation. Surgical clips left eusebia st wall. Breast implants suspected. No consolidation or pleural effusion. Impression: COPD and chronic changes. No acute process seen.
[2019-12-07 17:25] LABS: INR 0.9 (<1.2); Prothrombin Time 9.9 sec (9.0-12.0)
[2019-12-07 17:32] LABS: D-Dimer 1.32 mg/L FEU (<0.60)
[2019-12-07] MEDS ORDERED: LORazepam 2 MG/ML INJ IV STA (17:53)
--- NOTE | 2019-12-07 18:39 | CT ---
EXAMINATION TYPE: CT angio chest DATE OF EXAM: 12/07/2019 COMPARISON: 12/25/2018 HISTORY: 69-year-old female SOB, hx of breast CA TECHNIQUE: Contiguous axial scanning of the chest performed with IV Contrast, patient injected with 8 0 mL of Isovue 370. Coronal/sagittal MIP reconstructions performed. CT DLP: 390 mGycm Automated exposure control for dose reduction was used. FINDINGS: Bilateral breast prostheses. Overall heart normal size though there is some right-sided heart dilatation. At least [address] calcifications. Ectatic ascending aorta 3.9 cm with scattered mild to moderate atherosclerotic calcifications and con ventional vessel branching anatomy. Large caliber to the main right and left pulmonary arteries measuring up to 2.8 and 2.7 cm, respectiv shahana, suggesting underlying pulmonary arterial hypertension. The patient is breathing during the scan. This markedly degrades assessment for pulmonary embolus. No large central pulmonary embolus. Segmental and more distal arterial branches are essentially nondiag nostic. Many lobar branches are also nondiagnostic. In light cannot be excluded, for example, right m iddle lobe segmental branch, axial image 74. Unable to determine if this is motion artifact or embolu s. Moderate to advanced upper lung emphysema. Right apical pleural-parenchymal scarring. Some stable foc al pleural-based thickening along the superior right major fissure and 8 mm nodule right upper lobe j ust adjacent, axial image 37. No consolidation or pleural effusion. Visualized upper abdomen is motion degraded. Bones: No osseous destructive process. Moderate degenerative disc disease with accentuated upper thor acic kyphosis. IMPRESSION: 1. UNABLE TO EXCLUDE EMBOLI VERSUS ARTIFACT SUCH IN THE RIGHT MIDDLE LOBE SEGMENTAL BRANCHES, AXIA L IMAGE 74. The patient IS BREATHING DURING THE SCAN, MARKEDLY DEGRADING THE ASSESSMENT. NO LARGE KEISHA TRAL EMBOLUS. MANY OF THE REMAINING BRANCHES ARE NONDIAGNOSTIC. 2. 2. MODERATE TO ADVANCED EMPHYSEMA AND PULMONARY ARTERIAL HYPERTENSION. STABLE SCARRING/NODULARITY RIGHT UPPER LOBE SUGGESTING A BENIGN ETIOLOGY.
[2019-12-07] MEDS ORDERED: HEPARIN SODIUM,PORCINE 10,000 UNIT/ML 1 ML VIAL IV ONE (20:19)
[2019-12-07] MEDS ORDERED: HEPARIN SODIUM,PORCINE 5,000 UNIT/ML 1 ML VIAL IV PRN (20:19)
[2019-12-07] MEDS ORDERED: HEPARIN SOD,PORK IN 0.45% NACL 25,000 UNIT in 0.45% NACL 1 250ML.BAG IV SCH (20:30)
[2019-12-07] MEDS ORDERED: IPRATROPIUM-ALBUTEROL 3 ML NEB INHALATION PRN (21:14)
[2019-12-07] MEDS ORDERED: BISACODYL 10 MG SUPP RECTAL PRN (21:23)
[2019-12-07] MEDS ORDERED: LORazepam 0.5 MG TAB PO PRN (21:23)
[2019-12-07] MEDS ORDERED: BISACODYL 5 MG TABLET.DR PO PRN (21:23)
[2019-12-07] MEDS ORDERED: NA PHOS,M-B/NA PHOS,DI-BA 133 ML ENEMA RECTAL PRN (21:23)
[2019-12-07] MEDS ORDERED: MAGNESIUM HYDROXIDE 2,400 MG/10 ML CUP PO PRN (21:23)
[2019-12-07] MEDS ORDERED: ACETAMINOPHEN TAB 325 MG TAB PO PRN (21:23)
[2019-12-07] MEDS ORDERED: CALCIUM CARBONATE 500 MG CHEWABLE PO PRN (21:23)
--- NOTE | 2019-12-07 22:34 | US ---
EXAMINATION TYPE: US venous doppler duplex LE BI DATE OF EXAM: 12/07/2019 10:19 PM COMPARISON: NONE CLINICAL HISTORY: LE swelling. Pitting edema x 2 days. No hx of DVT. Heparin. SIDE PERFORMED: Bilateral TECHNIQUE: The lower extremity deep venous system is examined utilizing real time linear array sonog hiren with graded compression, doppler sonography and color-flow sonography. VESSELS IMAGED: External Iliac Vein (EIV) Common Femoral Vein Deep Femoral Vein Greater Saphenous Vein * Femoral Vein Popliteal Vein Small Saphenous Vein * Proximal Calf Veins (* superficial vessels) Right Leg: No evidence of DVT in veins imaged at this time from prox calf veins to EIV. Edema seen. Left Leg: No evidence of DVT in veins imaged at this time from prox calf veins to EIV. Edema seen. IMPRESSION: No sign of deep vein thrombosis in both legs.
[2019-12-08] MEDS: methylPREDNISolone SOD SUCCI 125 MG/2 ML VIAL IV SCH ×4 (01:38→17:27)
[2019-12-08 03:53] LABS: Basophils % (A) 0 %; Eosinophils % (A) 0 %; HGB 9.9 gm/dL (11.4-16.0); Lymphocytes # (A) 0.2 k/uL (1.0-4.8); Lymphocytes % (A) 1 %; MCH 32.1 pg (25.0-35.0); MCHC 31.9 g/dL (31.0-37.0); MCV 100.7 fL (80.0-100.0); Macrocytosis Slight; Mean Platelet Volume 8.8; Monocytes # (A) 0.3 k/uL (0-1.0); Monocytes % (A) 3 %; Neutrophils # (A) 11.4 k/uL (1.3-7.7); Neutrophils % (A) 95 %; Platelet Count 228 k/uL (150-450); RBC 3.08 m/uL (3.80-5.40); RDW 14.9 % (11.5-15.5)
[2019-12-08 06:19] LABS: Glucose,Whole Blood 176 mg/dL (75-99)
[2019-12-08] MEDS: INSULIN ASPART (NovoLOG) 100 UNIT/ML VIAL SQ SCH ×4 (06:48→20:36)
[2019-12-08] MEDS: PANTOPRAZOLE 40 MG TABLET PO SCH ×2 (06:48→17:27)
[2019-12-08] MEDS ORDERED: LACTOSE REDUCED FOOD PO SCH (08:00)
[2019-12-08] MEDS ORDERED: BUDESONIDE 0.5 MG/2 ML NEBU INHALATION SCH (08:00)
[2019-12-08] MEDS ORDERED: FORMOTEROL FUMARATE 20 MCG/2 ML NEBU INHALATION SCH (08:00)
[2019-12-08] MEDS ORDERED: HYDROCHLOROTHIAZIDE 25 MG TAB PO SCH (08:00)
[2019-12-08] MEDS: IPRATROPIUM 0.5 MG/2.5 ML NEBU INHALATION SCH ×3 (08:22→15:25)
[2019-12-08] MEDS: FAMOTIDINE 20 MG TAB PO SCH ×2 (08:48→20:39)
[2019-12-08] MEDS: amLODIPine 5 MG TAB PO SCH (08:48)
[2019-12-08] MEDS: FOLIC ACID 1 MG TAB PO SCH (08:49)
[2019-12-08] MEDS: LOSARTAN 50 MG TAB PO SCH (08:49)
[2019-12-08] MEDS: THIAMINE 100 MG TAB PO SCH (08:49)
[2019-12-08] MEDS: guaiFENesin 600 MG TABLET.ER PO SCH ×2 (08:49→20:39)
[2019-12-08] MEDS: NEBIVOLOL 5 MG TAB PO SCH (08:49)
[2019-12-08] MEDS: TROSPIUM CHLORIDE 20 MG TABLET PO SCH ×2 (08:49→17:27)
[2019-12-08 12:16] LABS: Glucose,Whole Blood 171 mg/dL (75-99)
[2019-12-08] MEDS: FUROSEMIDE 10 MG/ML 4 ML VIAL IV SCH ×2 (16:15→20:38)
--- NOTE | 2019-12-08 16:18 | P.CONS ---
History of Present Illness - Chief Complaint Medical debility - History of Present Illness I had the opportunity to see patient for inpatient rehab consultation with regard to medical debility. She was admitted to [place] [address] with shortness of breath, COPD exacerbation. Chest x-ray consistent with COPD and chronic change. CTA with moderate emphysema only. Lower extremity Doppler negative for DVT right and left leg. PT reports supervision for bed mobility, transfers, gait 50 feet with roller walker. OT reports supervision for all basic self-care tasks and functional mobility. Therapies are recommending subacute rehab or SNF placement. Previous functional history as elicited from patient: 69-year-old right-handed white female who is lives in one floor home with . Patient retired in semiretired. does the driving. They purchased their meals. There is help hired for laundry. Patient describes independent with sitdown sponge bath and gait with 4 wheeled walker. She does have POV and wheelchair. Home O2. Regular doctors are Dr. VALERIE Aguirre in [facility]. Patient denies tobacco or alcohol. Family history of father with CO in mother with COPD. Review of Systems Review of systems: ENT: Denies sneezes or discharge. Eyes: Denies discharge or photophobia. Cardiac: Denies chest pain or palpitation. Pulmonary: Mild to moderate shortness of breath but improved. Breast: Denies discharge or lumps. Gastrointestinal: Denies nausea, emesis, constipation, diarrhea. Genitourinary: Denies discharge or frequency. Musculoskeletal: Denies muscle or bone aches. Neurologic: Denies motor or sensory change. Endocrine: Denies shakes or sweats. Oncology: Denies cancers. Dermatologic: Denies rash, itching, pruritus. ALLERGY/immunology: Denies sneezes, rashes. Past Medical History Past Medical History: Cancer, COPD, Hyperlipidemia, Hypertension, Pneumonia Additional Past Medical History / Comment(s): BREAST CANCER 2013; PATIENT WEARS 4L OF OXYGEN AT HOME History of Any Multi-Drug Resistant Organisms: None Reported Past Surgical History: Adenoidectomy, Appendectomy, Tonsillectomy Additional Past Surgical History / Comment(s): LEFT BREAST MASECTOMY, Cataract surgery Past Anesthesia/Blood Transfusion Reactions: No Reported Reaction Past Psychological History: No Psychological Hx Reported Smoking Status: Former smoker Past Alcohol Use History: Rare Past Drug Use History: None Reported - Past Family History Mother Family Medical History: COPD Father Family Medical History: Congestive Heart Failure (CHF) Medications and Allergies Home Medications Medication Instructions Recorded Confirmed Type Budesonide [Pulmicort] 0.5 mg INHALATION RT-BID@0800,1700 12/24/18 12/07/19 History Nebivolol [Bystolic] 5 mg PO DAILY@0800 12/24/18 12/07/19 History Pravastatin Sodium [Pravachol] 40 mg PO HS@2100 12/24/18 12/07/19 History amLODIPine [Norvasc] 5 mg PO DAILY@0800 12/24/18 12/07/19 History Albuterol Sulfate [Proair Hfa] 2 puff INHALATION RT-Q4H PRN 11/24/19 12/07/19 History Bisacodyl [Dulcolax] 10 mg PO DAILY PRN tablet. 12/01/19 12/07/19 Rx Calcium Carbonate [Tums] 1,000 mg PO TID PRN chew 12/01/19 12/07/19 Rx Ipratropium-Albuterol Nebulize 3 ml INHALATION RT-Q4H ml 12/01/19 12/07/19 Rx [Duoneb 0.5 mg-3 mg/3 ml Soln] Ipratropium-Albuterol Nebulize 3 ml INHALATION RT-QID PRN ml 12/01/19 12/07/19 Rx [Duoneb 0.5 mg-3 mg/3 ml Soln] LORazepam [Ativan] 0.5 mg PO Q8HR PRN #2 tab 12/01/19 12/07/19 Rx Thiamine [Vitamin B-1] 100 mg PO DAILY@1200 tab 12/01/19 12/07/19 Rx Acetaminophen Tab [Tylenol] 650 mg PO Q6HR PRN 12/07/19 12/07/19 History Bisacodyl [Dulcolax] 10 mg RECTAL DAILY PRN 12/07/19 12/07/19 History Famotidine [Pepcid] 20 mg PO BID@0800,2100 12/07/19 12/07/19 History Folic Acid 1 mg PO DAILY@1200 12/07/19 12/07/19 History Glycopyrrolate/Formoterol Fum 2 puff INHALATION RT-BID@0800,1700 12/07/19 12/07/19 History [Bevespi Aerosphere Inhaler] Hydrochlorothiazide [Hydrodiuril] 12.5 mg PO DAILY@0800 12/07/19 12/07/19 History Lactose-Reduced Food [Boost] 120 ml PO BID@0800,1700 12/07/19 12/07/19 History Losartan Potassium 100 mg PO DAILY@0800 12/07/19 12/07/19 History Magnesium Hydroxide [Milk of 7,200 mg PO DAILY PRN 12/07/19 12/07/19 History Magnesia Concentrate] Montelukast [Singulair] 10 mg PO HS@209912/07/19 12/07/19 History Multivitamins, Thera [Multivitamin 1 tab PO DAILY@169912/07/19 12/07/19 History (formulary)] Na Phos,M-B/Na Phos,Di-Ba [Fleet 133 ml RECTAL ONCE PRN 12/07/19 12/07/19 History Adult] Pantoprazole [Protonix] 40 mg PO BID@0600,1800 12/07/19 12/07/19 History Tamsulosin [Flomax] 0.4 mg PO HS@209912/07/19 12/07/19 History Trospium Chloride [Sanctura] 20 mg PO BID@0800,169912/07/19 12/07/19 History guaiFENesin [Mucinex] 1,200 mg PO BID@0800,2100 12/07/19 12/07/19 History predniSONE See Taper PO DAILY@0812/07/19 12/07/19 History Allergies Allergy/AdvReac Type Severity Reaction Status Date / Time codeine AdvReac Nausea & Verified 12/07/19 21:14 Vomiting Physical Exam Vitals: Vital Signs Temp Pulse Pulse Resp BP BP Pulse Ox 12/08/19 15:40 96 12/08/19 15:28 88 12/08/19 11:53 98.2 F 88 16 113/74 95 12/08/19 08:56 98.2 F 90 20 117/74 96 12/08/19 08:33 98 12/08/19 08:28 100 12/08/19 08:12 104 H 12/08/19 04:00 97.8 F 80 17 106/76 97 12/08/19 03:34 98 12/08/19 00:00 97.9 F 89 17 110/62 96 12/07/19 21:29 97.6 F 93 18 102/67 93 L 12/07/19 17:30 108 H 18 107/82 88 L 12/07/19 17:14 110 H 12/07/19 17:00 105 H 15 118/72 99 12/07/19 16:55 113 H 12/07/19 16:39 102 H 18 98 12/07/19 16:34 96.9 F L 111 H 24 118/72 98 Intake and Output 12/08/19 12/08/19 12/08/19 06:59 14:59 22:59 Intake Total 274.154 Output Total 0 900 Balance 274.154 -900 Intake: Intake, IV Titration 174.154 Amount Heparin Sod,Pork in 0.45% 174.154 NaCl 25,000 unit In 0.45 % NaCl 1 250ml.bag @ 18 UNITS/KG/HR 12.41 mls/hr IV .Q20H9M [facility] Rx#: [id number] Oral 100 Output: Urine 0 900 Other: Voiding Method Bedside Commode Bedside Commode Incontinent Incontinent # Voids 0 # Bowel Movements 0 Weight 70 kg Skin: Atrophic, intact, multiple bruises. General: Medium build and comfortable appearance. Head: Normocephalic, atraumatic. Eyes: Symmetric. Pupils equal round. Ears: Symmetric. Hearing within normal limits. Mouth: Clear. Neck: Supple. Carotid without bruit. Cardiac: Regular rate and rhythm. Lungs: Clear anteriorly and posteriorly. Abdomen: Soft active nontender. Extremities: Normal tone. Mild wasting noted in hands. Neurological: Mental status: Alert, cooperative, pleasant. Cranial nerves: Symmetric facial tone and trapezius. Motor: Normal strength and isolation all 4 limbs. Sensation: Intact throughout. DTRs: Symmetric and equal throughout. Mobility: PT OT notes reviewed. Results CBC & Chem 7: 12/08/19 03:12 12/07/19 16:41 Labs: Abnormal Lab Results - Last 24 Hours (Table) 12/07/19 12/07/19 12/07/19 Range/Units 16:41 16:41 16:41 WBC 16.4 H (3.8-10.6) k/uL RBC 3.43 L (3.80-5.40) m/uL Hgb 11.3 L (11.4-16.0) gm/dL Hct (34.0-46.0) % MCV 102.5 H (80.0-100.0) fL Neutrophils # 15.2 H (1.3-7.7) k/uL Lymphocytes # 0.3 L (1.0-4.8) k/uL APTT 19.0 L (22.0-30.0) sec D-Dimer 1.32 H (<0.60) mg/L FEU Sodium 129 L (137-145) mmol/L Chloride 88 L (98-107) mmol/L Carbon Dioxide 37 H (22-30) mmol/L Creatinine 0.48 L (0.52-1.04) mg/dL Glucose 220 H (74-99) mg/dL POC Glucose (mg/dL) (75-99) mg/dL 12/08/19 12/08/19 12/08/19 Range/Units 03:12 03:12 06:19 WBC 12.0 H (3.8-10.6) k/uL RBC 3.08 L (3.80-5.40) m/uL Hgb 9.9 L (11.4-16.0) gm/dL Hct 31.0 L (34.0-46.0) % MCV 100.7 H (80.0-100.0) fL Neutrophils # 11.4 H (1.3-7.7) k/uL Lymphocytes # 0.2 L (1.0-4.8) k/uL APTT >200.0 H* (22.0-30.0) sec D-Dimer (<0.60) mg/L FEU Sodium (137-145) mmol/L Chloride (98-107) mmol/L Carbon Dioxide (22-30) mmol/L Creatinine (0.52-1.04) mg/dL Glucose (74-99) mg/dL POC Glucose (mg/dL) 176 H (75-99) mg/dL 12/08/19 Range/Units 12:15 WBC (3.8-10.6) k/uL RBC (3.80-5.40) m/uL Hgb (11.4-16.0) gm/dL Hct (34.0-46.0) % MCV (80.0-100.0) fL Neutrophils # (1.3-7.7) k/uL Lymphocytes # (1.0-4.8) k/uL APTT (22.0-30.0) sec D-Dimer (<0.60) mg/L FEU Sodium (137-145) mmol/L Chloride (98-107) mmol/L Carbon Dioxide (22-30) mmol/L Creatinine (0.52-1.04) mg/dL Glucose (74-99) mg/dL POC Glucose (mg/dL) 171 H (75-99) mg/dL Assessment and Plan (1) Acute exacerbation of chronic obstructive airways disease Current Visit: Yes Status: Acute Code(s): J44.1 - CHRONIC OBSTRUCTIVE PULMONARY DISEASE W (ACUTE) EXACERBATION SNOMED Code(s): 484976711 Plan: Impression: 1. Medical debility. 2. Acute on chronic COPD and chronic respiratory failure. 3. Hypertension. 4. Dyslipidemia. 5. History of Cancer. Comments and plan: At this time PT and OT are ongoing in both described patient is supervision. Patient would not meet insurance criteria for inpatient rehab currently.
[2019-12-08 16:56] LABS: Glucose,Whole Blood 178 mg/dL (75-99)
[2019-12-08] MEDS: MULTIVITAMINS, THERA 1 EACH TAB PO SCH (17:27)
--- NOTE | 2019-12-08 18:38 | P.HPIM ---
History of Present Illness H&P Date: 12/08/19 Chief Complaint: Shortness of breath This is a 69-year-old patient of Dr. figueroa and also she follows with coach professional athletes Dr. Thu Aguirre. Chronic stable medical conditions include hypertension, hyperlipidemia, urinary incontinence, osteoarthritis and home oxygen 4 L. patient's current. [facility] for rehab. Patient is a group therapy. And noticed that the lower extremity was swelling. Patient then became short of breath. No cough no fever or chills appetite is okay felt weak tired. Presentation was relatively short period. No chest pressure. Review of systems: GEN.: Tired EYES: None HEENT: None NECK: None RESPIRATORY: [As above CARDIOVASCULAR: As above GASTROINTESTINAL: None GENITOURINARY: None MUSCULOSKELETAL: Joint pains LYMPHATICS: None HEMATOLOGICAL: None PSYCHIATRY: None NEUROLOGICAL: None Past medical history to include: COPD, hypertension, hyperlipidemia, urinary incontinence, osteoarthritis, chronic hypoxic respiratory failure on 4 L oxygen at home Social history: Smoked a pack and half a close to 50 years stopped about 9 years ago. . No alcohol. Currently at [facility] Family history: Reviewed, noncontributory to presentation Physical examination: VITAL SIGNS: 96.9, 111, 24, 11 8/72, 98% on 5 L GENERAL: BMI 28.2, sitting upon a chair, short of breath. EYES: Pupils equal. Conjunctiva normal. HEENT: External appearance of nose and ears normal, oral cavity grossly normal. NECK: JVD unable to assess; masses not palpable. HEART: First and second heart sounds are normal; edema present. LUNGS: Respiratory rate increased, accessory muscle working, diminished breath sounds. ABDOMEN: Soft, nontender, liver spleen not palpable, no masses palpable. PSYCH: [Alert and oriented x3; mood and affect anxious l. MUSCULOSKELETAL: Evidence of OA NEUROLOGICAL: Cranial nerves grossly intact; no facial asymmetry, power and sensation grossly intact. LYMPHATICS: No lymph nodes palpable in the axilla and neck INVESTIGATIONS, reviewed in the clinical context: White count 16.4 hemoglobin 11.3 potassium 4.7 bun 17 creatinine 0.48 sodium 129 Influenza A and B both negative EKG tracing personally reviewed by me-sinus tachycardia Chest CTA-unable to exclude PE versus artifact. Evidence of advanced emphysema and pulmonary artery hypertension. Chest x-ray film personally reviewed by me-no obvious infiltrate Doppler ultrasound-no evidence of DVT ProBNP-81 Assessment: -Acute severe COPD exacerbation in a ex-smoker -Possible cor pulmonale, we'll do 2-D echo -Essential hypertension -Hyperlipidemia -Chronic urinary incontinence -Primary osteoarthritis -Chronic hypoxic respiratory failure on 4 L of oxygen -Acute hypoxic respiratory failure from above requiring BiPAP -Doubt CHF -Hyponatremia likely hypoosmolar. Plan: Patient is put on nebulized bronchodilators IV steroids and his stress. Home medications resumed. Pulmonary was consulted. Care was discussed with the patient and at the bedside. Check serum osmolarity. Past Medical History Past Medical History: Cancer, COPD, Hyperlipidemia, Hypertension, Pneumonia Additional Past Medical History / Comment(s): BREAST CANCER 2013; PATIENT WEARS 4L OF OXYGEN AT HOME History of Any Multi-Drug Resistant Organisms: None Reported Past Surgical History: Adenoidectomy, Appendectomy, Tonsillectomy Additional Past Surgical History / Comment(s): LEFT BREAST MASECTOMY, Cataract surgery Past Anesthesia/Blood Transfusion Reactions: No Reported Reaction Past Psychological History: No Psychological Hx Reported Smoking Status: Former smoker Past Alcohol Use History: Rare Past Drug Use History: None Reported - Past Family History Mother Family Medical History: COPD Father Family Medical History: Congestive Heart Failure (CHF) Medications and Allergies Home Medications Medication Instructions Recorded Confirmed Type Budesonide [Pulmicort] 0.5 mg INHALATION RT-BID@0800,1700 12/24/18 12/07/19 History Nebivolol [Bystolic] 5 mg PO DAILY@0800 12/24/18 12/07/19 History Pravastatin Sodium [Pravachol] 40 mg PO HS@2100 12/24/18 12/07/19 History amLODIPine [Norvasc] 5 mg PO DAILY@0800 12/24/18 12/07/19 History Albuterol Sulfate [Proair Hfa] 2 puff INHALATION RT-Q4H PRN 11/24/19 12/07/19 History Bisacodyl [Dulcolax] 10 mg PO DAILY PRN tablet. 12/01/19 12/07/19 Rx Calcium Carbonate [Tums] 1,000 mg PO TID PRN chew 12/01/19 12/07/19 Rx Ipratropium-Albuterol Nebulize 3 ml INHALATION RT-Q4H ml 12/01/19 12/07/19 Rx [Duoneb 0.5 mg-3 mg/3 ml Soln] Ipratropium-Albuterol Nebulize 3 ml INHALATION RT-QID PRN ml 12/01/19 12/07/19 Rx [Duoneb 0.5 mg-3 mg/3 ml Soln] LORazepam [Ativan] 0.5 mg PO Q8HR PRN #2 tab 12/01/19 12/07/19 Rx Thiamine [Vitamin B-1] 100 mg PO DAILY@1200 tab 12/01/19 12/07/19 Rx Acetaminophen Tab [Tylenol] 650 mg PO Q6HR PRN 12/07/19 12/07/19 History Bisacodyl [Dulcolax] 10 mg RECTAL DAILY PRN 12/07/19 12/07/19 History Famotidine [Pepcid] 20 mg PO BID@0800,2100 12/07/19 12/07/19 History Folic Acid 1 mg PO DAILY@1200 12/07/19 12/07/19 History Glycopyrrolate/Formoterol Fum 2 puff INHALATION RT-BID@0800,1700 12/07/19 12/07/19 History [Bevespi Aerosphere Inhaler] Hydrochlorothiazide [Hydrodiuril] 12.5 mg PO DAILY@0800 12/07/19 12/07/19 History Lactose-Reduced Food [Boost] 120 ml PO BID@0800,1700 12/07/19 12/07/19 History Losartan Potassium 100 mg PO DAILY@0800 12/07/19 12/07/19 History Magnesium Hydroxide [Milk of 7,200 mg PO DAILY PRN 12/07/19 12/07/19 History Magnesia Concentrate] Montelukast [Singulair] 10 mg PO HS@2100 12/07/19 12/07/19 History Multivitamins, Thera [Multivitamin 1 tab PO DAILY@1700 12/07/19 12/07/19 History (formulary)] Na Phos,M-B/Na Phos,Di-Ba [Fleet 133 ml RECTAL ONCE PRN 12/07/19 12/07/19 History Adult] Pantoprazole [Protonix] 40 mg PO BID@0600,1800 12/07/19 12/07/19 History Tamsulosin [Flomax] 0.4 mg PO HS@2100 12/07/19 12/07/19 History Trospium Chloride [Sanctura] 20 mg PO BID@0800,1700 12/07/19 12/07/19 History guaiFENesin [Mucinex] 1,200 mg PO BID@0800,2100 12/07/19 12/07/19 History predniSONE See Taper PO DAILY@0800 12/07/19 12/07/19 History Allergies Allergy/AdvReac Type Severity Reaction Status Date / Time codeine AdvReac Nausea & Verified 12/07/19 21:14 Vomiting Physical Exam Vitals: Vital Signs Temp Pulse Pulse Resp BP BP Pulse Ox 12/08/19 08:56 98.2 F 90 20 117/74 96 12/08/19 08:33 98 12/08/19 08:28 100 12/08/19 08:12 104 H 12/08/19 04:00 97.8 F 80 17 106/76 97 12/08/19 03:34 98 12/08/19 00:00 97.9 F 89 17 110/62 96 12/07/19 21:29 97.6 F 93 18 102/67 93 L 12/07/19 17:30 108 H 18 107/82 88 L 12/07/19 17:14 110 H 12/07/19 17:00 105 H 15 118/72 99 12/07/19 16:55 113 H 12/07/19 16:39 102 H 18 98 12/07/19 16:34 96.9 F L 111 H 24 118/72 98 Intake and Output 12/07/19 12/08/19 12/08/19 22:59 06:59 14:59 Other: Voiding Method Bedside Commode Bedside Commode Incontinent Incontinent # Voids 0 0 Weight 68.946 kg 70 kg Results CBC & Chem 7: 12/08/19 03:12 12/07/19 16:41 Labs: Abnormal Lab Results - Last 24 Hours (Table) 12/07/19 12/07/19 12/07/19 Range/Units 16:41 16:41 16:41 WBC 16.4 H (3.8-10.6) k/uL RBC 3.43 L (3.80-5.40) m/uL Hgb 11.3 L (11.4-16.0) gm/dL Hct (34.0-46.0) % MCV 102.5 H (80.0-100.0) fL Neutrophils # 15.2 H (1.3-7.7) k/uL Lymphocytes # 0.3 L (1.0-4.8) k/uL APTT 19.0 L (22.0-30.0) sec D-Dimer 1.32 H (<0.60) mg/L FEU Sodium 129 L (137-145) mmol/L Chloride 88 L (98-107) mmol/L Carbon Dioxide 37 H (22-30) mmol/L Creatinine 0.48 L (0.52-1.04) mg/dL Glucose 220 H (74-99) mg/dL POC Glucose (mg/dL) (75-99) mg/dL 12/08/19 12/08/19 12/08/19 Range/Units 03:12 03:12 06:19 WBC 12.0 H (3.8-10.6) k/uL RBC 3.08 L (3.80-5.40) m/uL Hgb 9.9 L (11.4-16.0) gm/dL Hct 31.0 L (34.0-46.0) % MCV 100.7 H (80.0-100.0) fL Neutrophils # 11.4 H (1.3-7.7) k/uL Lymphocytes # 0.2 L (1.0-4.8) k/uL APTT >200.0 H* (22.0-30.0) sec D-Dimer (<0.60) mg/L FEU Sodium (137-145) mmol/L Chloride (98-107) mmol/L Carbon Dioxide (22-30) mmol/L Creatinine (0.52-1.04) mg/dL Glucose (74-99) mg/dL POC Glucose (mg/dL) 176 H (75-99) mg/dL Thrombosis Risk Factor Assmnt - Choose All That Apply Each Factor Represents 1 point: Abnormal pulmonary function (COPD), Obesity (BMI >25), Serious lung disease incl. pneumonia (< 1month) Each Risk Factor Represents 2 Points: Age 61-74 years Thrombosis Risk Factor Assessment Total Risk Factor Score: 5 Thrombosis Risk Factor Assessment Level: High Risk
[2019-12-08] MEDS: BUDESONIDE 1 MG/2 ML NEBU INHALATION SCH (19:39)
[2019-12-08] MEDS: IPRATROPIUM-ALBUTEROL 3 ML NEB INHALATION SCH ×3 (19:39→23:31)
[2019-12-08 20:36] LABS: Glucose,Whole Blood 104 mg/dL (75-99)
[2019-12-08] MEDS: MONTELUKAST 10 MG TAB PO SCH (20:38)
[2019-12-08] MEDS: PRAVASTATIN SODIUM 40 MG TAB PO SCH (20:38)
[2019-12-08] MEDS: TAMSULOSIN 0.4 MG CAP.ER.24H PO SCH (20:39)
[2019-12-08] MEDS: HEPARIN SODIUM,PORCINE 5,000 UNIT/ML 1 ML VIAL SQ SCH (20:39)
--- NOTE | 2019-12-08 23:10 | CONS ---
CEDRICK Christian is a 69-year-old female who was transferred from the longterm with sudden onset of shortness of breath. This has been associated with some wheezing and some swelling of her lower extremities. She subsequently was seen in the ER and admitted for further evaluation and management. She had a CT scan of the chest done which showed no evidence of any blood clots in the major pulmonary arteries. However, it was inconclusive in the smaller segment and subsegmental areas. She continues to have shortness of breath at this time. She had no chest pain. PAST MEDICAL HISTORY: Her past medical history is positive for severe asthma with allergic etiology due to aspergillus and penicillium in part, history of severe COPD, for which a post bronchodilator FEV1 was only 0.39 L, history of breast cancer and previous left mastectomy. SOCIAL HISTORY: Patient is a former heavy smoker. Does not drink alcohol excessively. FAMILY HISTORY: Noncontributory. MEDICATIONS: Medications prior to admission were Mucinex, Norvasc, Sanctura, vitamin B1, Flomax, Pravachol, Protonix, Bystolic, adult vitamin, Singulair, milk of magnesia, losartan, Ativan, DuoNeb, Bevespi, HydroDIURIL, folic acid, Pepcid, Tums, Pulmicort, Dulcolax, ProAir and acetaminophen. ALLERGIES: The patient has an ADVERSE REACTION OR ALLERGY TO CODEINE. PHYSICAL EXAMINATION: She was lying in bed. Her respiratory rate is 26, pulse rate of 88, temperature 98.2, blood pressure 113/74, oxygen saturation on 4 L by nasal cannula 95%. HEENT reveals pupils that are equal. Mild prominence of her jugular veins. Chest reveals decreased breath sounds with prolonged exhalation. There is a wheeze on forced exhalation. Cardiovascular system is in S1, S2. Abdomen is soft. There is 1+ to 2+ pedal edema. LABS/IMAGING: Labs reveal a white count of 12, hemoglobin 9.9. D-dimer was elevated at 1.32. Sodium is 129, potassium 4.7, chloride 88, bicarb 37, white count of 16.4, hemoglobin of 11.3. Influenza A and B were negative. Plasma lactic acid from the vein was 1.3. NT-proBNP was 81. CT of the chest was personally reviewed. It does not show any evidence of PE. There is some motion artifact. There is dilation of the right ventricle. Previous echo done approximately 5 years ago showed RVSP of 35 with global wall thickness of the right ventricle which is mildly enlarged. IMPRESSION AT THIS TIME: 1. Asthma with chronic obstructive pulmonary disease with acute exacerbation. 2. Acute respiratory failure. 3. Doubt pulmonary embolism. 4. Cor pulmonale. 5. Medical debility. At this point in time, would discontinue her IV heparin, as the index of suspicion for PE is low and the ultrasound of the lower extremities is negative. Keep her on subcutaneous heparin for DVT prophylaxis. Continue her on her cardiac medications. Keep her on IV and aerosolized steroids. Achieve gentle diuresis, as she has symptomatic edema with her pulmonary hypertension. Her prognosis at this time is guarded. Would consult Physical Medicine and Rehab to see if she is a candidate for inpatient rehab. She was counseled regarding her condition and this approach. She and her have an understanding of our recommendations. I would like to thank you for allowing me the privilege of participating in the care of your patient. JUAN F / MULUGETAN: [id number] /
[2019-12-09] MEDS: IPRATROPIUM-ALBUTEROL 3 ML NEB INHALATION SCH ×6 (03:34→23:35)
[2019-12-09 05:54] LABS: Basophils % (A) 0 %; Eosinophils % (A) 0 %; HGB 10.3 gm/dL (11.4-16.0); Lymphocytes # (A) 0.2 k/uL (1.0-4.8); Lymphocytes % (A) 1 %; MCH 32.8 pg (25.0-35.0); MCHC 32.4 g/dL (31.0-37.0); MCV 101.4 fL (80.0-100.0); Macrocytosis Slight; Mean Platelet Volume 7.8; Monocytes # (A) 0.3 k/uL (0-1.0); Monocytes % (A) 3 %; Neutrophils # (A) 11.1 k/uL (1.3-7.7); Neutrophils % (A) 95 %; Platelet Count 248 k/uL (150-450); RBC 3.15 m/uL (3.80-5.40); RDW 14.8 % (11.5-15.5); WBC 11.7 k/uL (3.8-10.6)
[2019-12-09 06:04] LABS: African American GFR (CKD) >90 (>60 ml/min/1.73 sqM); Blood Urea Nitrogen 20 mg/dL (7-17); Calcium 8.5 mg/dL (8.4-10.2); Chloride 81 mmol/L (98-107); Glucose 147 mg/dL (74-99); Non-African American GFR(CKD) >90 (>60 ml/min/1.73 sqM); Sodium 129 mmol/L (137-145)
[2019-12-09 06:09] LABS: Glucose,Whole Blood 167 mg/dL (75-99)
[2019-12-09 06:10] LABS: Anion Gap 4 mmol/L
[2019-12-09 06:17] LABS: Carbon Dioxide 44 mmol/L (22-30)
[2019-12-09] MEDS: PANTOPRAZOLE 40 MG TABLET PO SCH ×2 (06:48→16:40)
[2019-12-09] MEDS: INSULIN ASPART (NovoLOG) 100 UNIT/ML VIAL SQ SCH ×4 (06:48→20:32)
[2019-12-09] MEDS: guaiFENesin 600 MG TABLET.ER PO SCH ×2 (08:05→20:31)
[2019-12-09] MEDS: NEBIVOLOL 5 MG TAB PO SCH (08:05)
[2019-12-09] MEDS: FAMOTIDINE 20 MG TAB PO SCH ×2 (08:05→20:32)
[2019-12-09] MEDS: TROSPIUM CHLORIDE 20 MG TABLET PO SCH ×2 (08:05→16:40)
[2019-12-09] MEDS: LOSARTAN 50 MG TAB PO SCH (08:06)
[2019-12-09] MEDS: amLODIPine 5 MG TAB PO SCH (08:06)
[2019-12-09] MEDS: FUROSEMIDE 10 MG/ML 4 ML VIAL IV SCH ×2 (08:07→20:31)
[2019-12-09] MEDS: HEPARIN SODIUM,PORCINE 5,000 UNIT/ML 1 ML VIAL SQ SCH ×2 (08:07→20:31)
[2019-12-09] MEDS: BUDESONIDE 1 MG/2 ML NEBU INHALATION SCH ×2 (08:49→19:07)
--- NOTE | 2019-12-09 11:01 | ECHOF ---
Referral Reason:Assess for secondary pulmonary hypertension MEASUREMENTS -------- HEIGHT: 157.5 cm WEIGHT: 71.7 kg BP: 109/78 RVIDd: 3.6 cm (< 3.3) RAP: 5.00 mmHg RVSP: 64.14 mmHg FINDINGS -------- Sinus rhythm. Pt has severe COPD. Sitting up. Overall left ventricular systolic function is low-normal with, an EF between 50 - 55 %. NOT WELL SUALIZED The right ventricle is mildly enlarged. The left atrium was not well visualized. The right atrium was not well visualized. 5.0mg of Lumason was utilized for enhancement of images The aortic valve was not well visualized. The mitral valve was not well visualized. The tricuspid valve was not well visualized. Moderate to severe tricuspid regurgitation present. There is moderate to severe pulmonary hypertension. The right ventricular systolic pressure, as nandini sured by Doppler, is 64.14mmHg. The pulmonic valve was not well visualized. Aorta Not well visualized IVC Not well visulized. CONCLUSIONS -------- 1. Sinus rhythm. 2. Pt has severe COPD. Sitting up. 3. Overall left ventricular systolic function is low-normal with, an EF between 50 - 55 %. 4. NOT WELL VISUALIZED 5. The right ventricle is mildly enlarged. 6. The left atrium was not well visualized. 7. The right atrium was not well visualized. 8. 5.0mg of Lumason was utilized for enhancement of images 9. The aortic valve was not well visualized. 10. The mitral valve was not well visualized. 11. The tricuspid valve was not well visualized. 12. Moderate to severe tricuspid regurgitation present. 13. There is moderate to severe pulmonary hypertension. 14. The right ventricular systolic pressure, as measured by Doppler, is 64.14mmHg. 15. The pulmonic valve was not well visualized. 16. Not well visualized 17. IVC Not well visulized. INTERNET MARKETING COORDINATOR: Lorrie Lo RDCS
[2019-12-09 11:34] LABS: Glucose,Whole Blood 152 mg/dL (75-99)
[2019-12-09] MEDS: THIAMINE 100 MG TAB PO SCH (12:12)
[2019-12-09] MEDS: FOLIC ACID 1 MG TAB PO SCH (12:12)
--- NOTE | 2019-12-09 14:22 | PN ---
PROGRESS NOTE She was seen again on December 09, 2019 She has been hemodynamically stable. She is less short of breath and doing better overall on physical examination. Her vital signs are stable. Her chest reveals decreased breath sounds with prolonged expiration and expiratory wheeze. Cardiovascular system reveals an S1, S2. No S3, S4. Abdomen is soft. There is minimal edema. Labs and medications were reviewed. IMPRESSION: 1. Asthma with chronic obstructive pulmonary disease with acute exacerbation. 2. Doubt pulmonary embolus. 3. Cor pulmonale with symptomatic edema. Optimize the fluid status. Continue systemic steroids, bronchodilators, aerosolized steroids. Agree with discharge planning with close outpatient followup. I did discuss my thoughts with the patient as well as the patient's physician. MMODL / IJN: [id number] /
[2019-12-09] MEDS ORDERED: POTASSIUM CHLORIDE ER 20 MEQ TAB.ER PO STA ×2 (16:14→22:34)
[2019-12-09 16:28] LABS: Glucose,Whole Blood 168 mg/dL (75-99)
[2019-12-09] MEDS: MULTIVITAMINS, THERA 1 EACH TAB PO SCH (16:40)
[2019-12-09 20:13] LABS: Glucose,Whole Blood 139 mg/dL (75-99)
[2019-12-09] MEDS: MONTELUKAST 10 MG TAB PO SCH (20:31)
[2019-12-09] MEDS: TAMSULOSIN 0.4 MG CAP.ER.24H PO SCH (20:31)
[2019-12-09] MEDS: PRAVASTATIN SODIUM 40 MG TAB PO SCH (20:32)
--- NOTE | 2019-12-09 22:36 | P.PN ---
Progress Note - Text Progress Note Date: 12/09/19 Chief Complaint: Shortness of breath This is a 69-year-old patient of Dr. figueroa and also she follows with atm manager Dr. Thu Aguirre. Chronic stable medical conditions include hypertension, hyperlipidemia, urinary incontinence, osteoarthritis and home oxygen 4 L. patient's current. [facility] for rehab. Patient is a group therapy. And noticed that the lower extremity was swelling. Patient then became short of breath. No cough no fever or chills appetite is okay felt weak tired. Presentation was relatively short period. No chest pressure. admitted with COPD exacerbation and acute on chronic cor pulmonale exacerbation. Responded well to nebulized bronchodilators steroids Lasix. Today-feeling better. Did tolerate some diet. Swelling going down. Has been out of bed. Review of systems: Was done for constitutional, cardiovascular, GI, pulmonary. relevant finding as above Active Medications Acetaminophen (Tylenol Tab) 650 mg PO Q6HR PRN PRN Reason: Fever and/ or Pain Albuterol/Ipratropium (Duoneb 0.5 Mg-3 Mg/3 Ml Soln) 3 ml INHALATION RT-Q4H PRN PRN Reason: Shortness Of Breath Or Wheezing Last Admin: 12/08/19 08:12 Dose: 3 ml Documented by: Albuterol/Ipratropium (Duoneb 0.5 Mg-3 Mg/3 Ml Soln) 3 ml INHALATION RT-Q4H [facility] Last Admin: 12/09/19 19:07 Dose: 3 ml Documented by: Amlodipine Besylate (Norvasc) 5 mg PO DAILY@0800 [facility] Last Admin: 12/09/19 08:06 Dose: Not Given Documented by: Bisacodyl (Dulcolax) 10 mg PO DAILY PRN PRN Reason: Constipation Bisacodyl (Dulcolax) 10 mg RECTAL DAILY PRN PRN Reason: Constipation Budesonide (Pulmicort) 1 mg INHALATION RT-BID [facility] Last Admin: 12/09/19 19:07 Dose: 1 mg Documented by: Calcium Carbonate/Glycine (Tums) 1,000 mg PO TID PRN PRN Reason: Heartburn Famotidine (Pepcid) 20 mg PO BID@0800,2100 [facility] Last Admin: 12/09/19 20:32 Dose: 20 mg Documented by: Folic Acid (Folic Acid) 1 mg PO DAILY@1200 [facility] Last Admin: 12/09/19 12:12 Dose: 1 mg Documented by: Furosemide (Lasix) 40 mg IV Q12HR [facility] Last Admin: 12/09/19 20:31 Dose: 40 mg Documented by: Guaifenesin (Mucinex) 1,200 mg PO BID@0800,2100 [facility] Last Admin: 12/09/19 20:31 Dose: 1,200 mg Documented by: Heparin Sodium (Porcine) (Heparin) 5,000 unit SQ Q12HR [facility] Last Admin: 12/09/19 20:31 Dose: 5,000 unit Documented by: Insulin Aspart (Novolog) 0 unit SQ [facility]; Protocol Last Admin: 12/09/19 20:32 Dose: 100 unit Documented by: Lorazepam (Ativan) 0.5 mg PO Q8HR PRN PRN Reason: Anxiety Last Admin: 12/08/19 23:39 Dose: 0.5 mg Documented by: Losartan Potassium (Cozaar) 100 mg PO DAILY@0800 [facility] Last Admin: 12/09/19 08:06 Dose: Not Given Documented by: Magnesium Hydroxide (Milk Of Magnesia) 7,200 mg PO DAILY PRN PRN Reason: Constipation Montelukast Sodium (Singulair) 10 mg PO HS@2100 [facility] Last Admin: 12/09/19 20:31 Dose: 10 mg Documented by: Multivitamins (Theragran) 1 each PO DAILY@1700 [facility] Last Admin: 12/09/19 16:40 Dose: 1 each Documented by: Nebivolol (Bystolic) 5 mg PO DAILY@0800 [facility] Last Admin: 12/09/19 08:05 Dose: Not Given Documented by: Pantoprazole Sodium (Protonix) 40 mg PO BID@0600,1800 [facility] Last Admin: 12/09/19 16:40 Dose: 40 mg Documented by: Pravastatin Sodium (Pravachol) 40 mg PO HS@2100 [facility] Last Admin: 12/09/19 20:32 Dose: 40 mg Documented by: Sodium Biphosphate/Sodium Phosphate (Fleet Adult) 133 ml RECTAL ONCE PRN PRN Reason: Constipation Tamsulosin HCl (Flomax) 0.4 mg PO HS@2100 [facility] Last Admin: 12/09/19 20:31 Dose: 0.4 mg Documented by: Thiamine HCl (Vitamin B-1) 100 mg PO DAILY@1200 [facility] Last Admin: 12/09/19 12:12 Dose: 100 mg Documented by: Trospium (Sanctura) 20 mg PO BID@0800,1700 [facility] Last Admin: 12/09/19 16:40 Dose: 20 mg Documented by: Physical examination: VITAL SIGNS: 97.8, 83, 18, 98/57, 98% on 4 L GENERAL: sitting up in a chair, breathing better EYES: Pupils equal. Conjunctiva normal. HEENT: External appearance of nose and ears normal, oral cavity grossly normal. NECK: JVD unable to assess; masses not palpable. HEART: First and second heart sounds are normal; edema present. LUNGS: Respiratory rate increased, breathing better. ABDOMEN: Soft, nontender, liver spleen not palpable, no masses palpable. PSYCH: [Alert and oriented x3; mood and affect anxious l. MUSCULOSKELETAL: Evidence of OA INVESTIGATIONS, reviewed in the clinical context: White count 11.7 hemoglobin 10.3 potassium 3 bun 20 creatinine 0.5 to bicarbonate 44sodium 129 Previous testing White count 16.4 hemoglobin 11.3 potassium 4.7 bun 17 creatinine 0.48 sodium 129 Influenza A and B both negative EKG tracing personally reviewed by me-sinus tachycardia Chest CTA-unable to exclude PE versus artifact. Evidence of advanced emphysema and pulmonary artery hypertension. Chest x-ray film personally reviewed by me-no obvious infiltrate Doppler ultrasound-no evidence of DVT ProBNP-81 2-D echo-a 55-55% moderate to severe tricuspid regurgitation, severe pulmonary hypertension Assessment: -Acute severe COPD exacerbation in a ex-smoker, improving -acute cor pulmonale, exacerbation, POA -Severe secondary pulmonary hypertension -Severe tricuspid regurgitation -Essential hypertension -Hyperlipidemia -Chronic urinary incontinence -Primary osteoarthritis -Chronic hypoxic respiratory failure on 4 L of oxygen -Acute hypoxic respiratory failure from above requiring BiPAP -Doubt CHF -Hyponatremia normal osmolar -Metabolic alkalosis from volume contraction Plan: PC IV Lasix. Discussed with patient. Does not want to go to rehab. Told the patient to ambulate. Hopefully discharge in next 24 hours.discussed withDr. S/P ready
[2019-12-09] MEDS ORDERED: SODIUM CHLORIDE 0.9% 1,000 ML IV SCH (22:45)
[2019-12-10] MEDS: IPRATROPIUM-ALBUTEROL 3 ML NEB INHALATION SCH ×3 (02:57→11:18)
[2019-12-10 06:05] LABS: Glucose,Whole Blood 128 mg/dL (75-99)
[2019-12-10] MEDS: INSULIN ASPART (NovoLOG) 100 UNIT/ML VIAL SQ SCH ×2 (06:07→12:02)
[2019-12-10] MEDS: PANTOPRAZOLE 40 MG TABLET PO SCH (06:26)
[2019-12-10 06:28] VITALS: TEMP 97.4
[2019-12-10 06:38] LABS: Basophils % (A) 0 %; Eosinophils # (A) 0.1 k/uL (0-0.7); Eosinophils % (A) 1 %; HCT 32.5 % (34.0-46.0); HGB 10.5 gm/dL (11.4-16.0); Lymphocytes # (A) 0.4 k/uL (1.0-4.8); Lymphocytes % (A) 5 %; MCH 33.1 pg (25.0-35.0); MCHC 32.3 g/dL (31.0-37.0); MCV 102.5 fL (80.0-100.0); Macrocytosis Slight; Mean Platelet Volume 7.9; Monocytes # (A) 0.8 k/uL (0-1.0); Monocytes % (A) 9 %; Neutrophils # (A) 7.6 k/uL (1.3-7.7); Neutrophils % (A) 85 %; Platelet Count 226 k/uL (150-450); RBC 3.18 m/uL (3.80-5.40); RDW 14.8 % (11.5-15.5)
[2019-12-10 06:47] LABS: African American GFR (CKD) >90 (>60 ml/min/1.73 sqM); Blood Urea Nitrogen 24 mg/dL (7-17); Calcium 8.4 mg/dL (8.4-10.2); Chloride 82 mmol/L (98-107); Glucose 118 mg/dL (74-99); Non-African American GFR(CKD) >90 (>60 ml/min/1.73 sqM); Potassium 3.4 mmol/L (3.5-5.1); Sodium 133 mmol/L (137-145)
[2019-12-10 06:54] LABS: Anion Gap 5 mmol/L
[2019-12-10 07:01] LABS: Carbon Dioxide 46 mmol/L (22-30)
[2019-12-10] MEDS: BUDESONIDE 1 MG/2 ML NEBU INHALATION SCH (08:07)
[2019-12-10] MEDS: LOSARTAN 50 MG TAB PO SCH (09:50)
[2019-12-10] MEDS: amLODIPine 5 MG TAB PO SCH (09:50)
[2019-12-10] MEDS: FAMOTIDINE 20 MG TAB PO SCH (09:52)
[2019-12-10] MEDS: guaiFENesin 600 MG TABLET.ER PO SCH (09:53)
[2019-12-10] MEDS: NEBIVOLOL 5 MG TAB PO SCH (09:53)
[2019-12-10] MEDS: TROSPIUM CHLORIDE 20 MG TABLET PO SCH (09:53)
[2019-12-10] MEDS: HEPARIN SODIUM,PORCINE 5,000 UNIT/ML 1 ML VIAL SQ SCH (09:54)
[2019-12-10 10:30] VITALS: BP 90/61; RESP 22
[2019-12-10 11:29] VITALS: PULSE 76
[2019-12-10 11:57] LABS: Glucose,Whole Blood 127 mg/dL (75-99)
[2019-12-10] MEDS: FOLIC ACID 1 MG TAB PO SCH (12:10)
[2019-12-10] MEDS: THIAMINE 100 MG TAB PO SCH (12:10)
--- NOTE | 2019-12-12 20:49 | P.DS ---
Providers Date of admission: 12/07/19 21:14 Expected date of discharge: 12/10/19 Attending physician: Mati Nergon Consults: 12/08/19 09:39 Consult Physician Urgent Consulting Provider: Los Aguirre Consult Reason/Comments: poss PE Do you want consulting provider notified?: Yes 12/08/19 13:59 Consult Physician Routine Consulting Provider: Inderjit Osei Consult Reason/Comments: medical debility Do you want consulting provider notified?: Yes Primary care physician: Alex De La Torre Hospital Course: Chief Complaint: Shortness of breath Hospital course This is a 69-year-old patient of Dr. de la torre and hold worker Dr. Tuh Aguirre. Chronic stable medical conditions include hypertension, hyperlipidemia, urinary incontinence, osteoarthritis and home oxygen 4 L. patient's currently at [facility] for rehab. Patient was at group therapy-noticed that the lower extremity was swelling. Patient then became short of breath. No cough no fever or chills. appetite is okay . felt weak tired.. No chest pressure. admitted with COPD exacerbation and acute on chronic cor pulmonale exacerbation. Responded well to nebulized bronchodilators, steroids, Lasix. Today-Much improved. Feeling better. Patient was suggested [facility] for rehab. Patient wishes to go home. Care was discussed with patient. Discussion and discharge planning more than 35 minutes Consultation: Dr. VALERIE Aguirre from pulmonary Physical examination: VITAL SIGNS: 97.4, 85, 18, 109/76, 98% on 4 L GENERAL: sitting up in a chair, comfortable EYES: Pupils equal. Conjunctiva normal. HEENT: External appearance of nose and ears normal, oral cavity grossly normal. NECK: JVD unable to assess; masses not palpable. HEART: First and second heart sounds are normal; edema present. LUNGS: Respiratory rate increased, decreased breath sounds. ABDOMEN: Soft, nontender, liver spleen not palpable, no masses palpable. PSYCH: [Alert and oriented x3; mood and affect anxious l. MUSCULOSKELETAL: Evidence of OA INVESTIGATIONS, reviewed in the clinical context: White count 9 hemoglobin 10.5 potassium 3.4 creatinine 0.58 Previous testing White count 16.4 hemoglobin 11.3 potassium 4.7 bun 17 creatinine 0.48 sodium 129 Influenza A and B both negative EKG tracing personally reviewed by me-sinus tachycardia Chest CTA-unable to exclude PE versus artifact. Evidence of advanced emphysema and pulmonary artery hypertension. Chest x-ray film personally reviewed by me-no obvious infiltrate Doppler ultrasound-no evidence of DVT ProBNP-81 2-D echo-a 55-55% moderate to severe tricuspid regurgitation, severe pulmonary hypertension Assessment: -Acute severe COPD exacerbation in a ex-smoker, POA -acute cor pulmonale, exacerbation, POA -Severe secondary pulmonary hypertension -Severe tricuspid regurgitation -Essential hypertension -Hyperlipidemia -Chronic urinary incontinence -Primary osteoarthritis -Chronic hypoxic respiratory failure on 4 L of oxygen -Acute hypoxic respiratory failure from above requiring BiPAP, POA -Doubt CHF -Hyponatremia normal osmolar -Metabolic alkalosis from volume contraction Disposition: Home Patient Condition at Discharge: Stable Plan - Discharge Summary New Discharge Prescriptions: New Furosemide [Lasix] 20 mg PO MOWEFR #30 tab Continue Pravastatin Sodium [Pravachol] 40 mg PO HS@2100 Budesonide [Pulmicort] 0.5 mg INHALATION RT-BID@0800,1700 Nebivolol [Bystolic] 5 mg PO DAILY@0800 Albuterol Sulfate [Proair Hfa] 2 puff INHALATION RT-Q4H PRN PRN Reason: Shortness Of Breath LORazepam [Ativan] 0.5 mg PO Q8HR PRN #2 tab PRN Reason: Anxiety Bisacodyl [Dulcolax] 10 mg PO DAILY PRN tablet. PRN Reason: Constipation Calcium Carbonate [Tums] 1,000 mg PO TID PRN chew PRN Reason: Heartburn Thiamine [Vitamin B-1] 100 mg PO DAILY@1200 tab Acetaminophen Tab [Tylenol] 650 mg PO Q6HR PRN PRN Reason: Fever And/ Or Pain Bisacodyl [Dulcolax] 10 mg RECTAL DAILY PRN PRN Reason: Constipation Famotidine [Pepcid] 20 mg PO BID@0800,2100 Folic Acid 1 mg PO DAILY@1200 Glycopyrrolate/Formoterol Fum [Bevespi Aerosphere Inhaler] 2 puff INHALATION RT-BID@0800,1700 guaiFENesin [Mucinex] 1,200 mg PO BID@0800,2100 Lactose-Reduced Food [Boost] 120 ml PO BID@0800,1700 Losartan Potassium 100 mg PO DAILY@0800 Magnesium Hydroxide [Milk of Magnesia Concentrate] 7,200 mg PO DAILY PRN PRN Reason: Constipation Montelukast [Singulair] 10 mg PO HS@2100 Multivitamins, Thera [Multivitamin (formulary)] 1 tab PO DAILY@1700 Na Phos,M-B/Na Phos,Di-Ba [Fleet Adult] 133 ml RECTAL ONCE PRN PRN Reason: Constipation Pantoprazole [Protonix] 40 mg PO BID@0600,1800 predniSONE See Taper PO DAILY@0800 Tamsulosin [Flomax] 0.4 mg PO HS@2100 Trospium Chloride [Sanctura] 20 mg PO BID@0800,1700 Changed Ipratropium-Albuterol Nebulize [Duoneb 0.5 mg-3 mg/3 ml Soln] 3 ml INHALATION TID #90 ml amLODIPine [Norvasc] 5 mg PO HS #0 Discontinued Ipratropium-Albuterol Nebulize [Duoneb 0.5 mg-3 mg/3 ml Soln] 3 ml INHALATION RT-Q4H ml Hydrochlorothiazide [Hydrodiuril] 12.5 mg PO DAILY@0800 Discharge Medication List Budesonide [Pulmicort] 0.5 mg INHALATION RT-BID@0800,1700 12/24/18 [History] Nebivolol [Bystolic] 5 mg PO DAILY@0800 12/24/18 [History] Pravastatin Sodium [Pravachol] 40 mg PO HS@2100 12/24/18 [History] Albuterol Sulfate [Proair Hfa] 2 puff INHALATION RT-Q4H PRN 11/24/19 [History] Bisacodyl [Dulcolax] 10 mg PO DAILY PRN tablet. 12/01/19 [Rx] Calcium Carbonate [Tums] 1,000 mg PO TID PRN chew 12/01/19 [Rx] LORazepam [Ativan] 0.5 mg PO Q8HR PRN #2 tab 12/01/19 [Rx] Thiamine [Vitamin B-1] 100 mg PO DAILY@1200 tab 12/01/19 [Rx] Acetaminophen Tab [Tylenol] 650 mg PO Q6HR PRN 12/07/19 [History] Bisacodyl [Dulcolax] 10 mg RECTAL DAILY PRN 12/07/19 [History] Famotidine [Pepcid] 20 mg PO BID@0800,2100 24/20 [History] Folic Acid 1 mg PO DAILY@1200 12/07/19 [History] Glycopyrrolate/Formoterol Fum [Bevespi Aerosphere Inhaler] 2 puff INHALATION RT-BID@0800,17012/07/19 [History] Lactose-Reduced Food [Boost] 120 ml PO BID@0800,1700 12/07/19 [History] Losartan Potassium 100 mg PO DAILY@0812/07/19 [History] Magnesium Hydroxide [Milk of Magnesia Concentrate] 7,200 mg PO DAILY PRN 12/07/19 [History] Montelukast [Singulair] 10 mg PO HS@209912/07/19 [History] Multivitamins, Thera [Multivitamin (formulary)] 1 tab PO DAILY@169912/07/19 [History] Na Phos,M-B/Na Phos,Di-Ba [Fleet Adult] 133 ml RECTAL ONCE PRN 12/07/19 [History] Pantoprazole [Protonix] 40 mg PO BID@0600,1800 12/07/19 [History] Tamsulosin [Flomax] 0.4 mg PO HS@209912/07/19 [History] Trospium Chloride [Sanctura] 20 mg PO BID@0800,169912/07/19 [History] guaiFENesin [Mucinex] 1,200 mg PO BID@0800,209912/07/19 [History] predniSONE See Taper PO DAILY@0812/07/19 [History] Furosemide [Lasix] 20 mg PO MOWEFR #30 tab 12/10/19 [Rx] Ipratropium-Albuterol Nebulize [Duoneb 0.5 mg-3 mg/3 ml Soln] 3 ml INHALATION TID #90 ml 12/10/19 [Rx] amLODIPine [Norvasc] 5 mg PO HS #0 12/10/19 [Rx] Follow up Appointment(s)/Referral(s): Alex De La Torre MD [Primary Care Provider] - 12/17/19 12:30 pm Los Aguirre MD [STAFF PHYSICIAN] - 12/16/19 1:45 pm (At [address] ) Ambulatory/Diagnostic Orders: Basic Metabolic Panel [LAB.AMB] Time Frame: 1 Week, Location: None Selected Patient Instructions/Handouts: Heart Failure (DC), COPD (Chronic Obstructive Pulmonary Disease) (DC) Activity/Diet/Wound Care/Special Instructions: Patient requires w/c van at discharge. Call [phone] to set up transportation. 1. Weigh yourself every morning after you urinate. If you gain 2-3 pounds overnight or 5 pounds in one week, call your primary physician for guidance on your medications. Keep a log of your weights. 2. Avoid salt, or foods with hidden salt. Extra salt makes your heart work harder and traps the fluid in your body for longer. 3. Take all of your medications as directed, especially your water pills. NEVER skip a dose. 4. Elevate your legs when you are not up moving around to help with circulation and prevent swelling. 5.Call your physician if you notice any extra swelling in your legs, ankles, feet or abdomen, if you have a new dry cough, if your shortness of breath worsens with activity or at rest, or if you feel more fatigued. bmp - 1 week Discharge Disposition: HOME SELF-CARE
== END 2019-12-10 14:47 | disposition home or self-care (01) | DRG 190 ==
LOC: EC 16:32 → 3SCARD 21:14
PROVIDERS: ADMIT Hospitalist; ATTEND Hospitalist
PROC: 05HD33Z Insertion of Infusion Device into Right Cephalic Vein, Percutaneous Approach (ICD-10-PCS; principal; 2019-12-08 11:50)
DX: J43.9 Emphysema, unspecified (principal); J96.21 Acute and chronic respiratory failure with hypoxia; J45.901 Unspecified asthma with (acute) exacerbation; E87.1 Hypo-osmolality and hyponatremia; E87.3 Alkalosis; I07.1 Rheumatic tricuspid insufficiency; I27.29 Other secondary pulmonary hypertension; M19.91 Primary osteoarthritis, unspecified site; R32 Unspecified urinary incontinence; Z79.899 Other long term (current) drug therapy; D64.9 Anemia, unspecified; D72.829 Elevated white blood cell count, unspecified; E78.5 Hyperlipidemia, unspecified; E87.8 Other disorders of electrolyte and fluid balance, not elsewhere classified; I10 Essential (primary) hypertension; I27.81 Cor pulmonale (chronic); Z82.49 Family history of ischemic heart disease and other diseases of the circulatory system; Z82.5 Family history of asthma and other chronic lower respiratory diseases; Z85.3 Personal history of malignant neoplasm of breast; Z87.891 Personal history of nicotine dependence; Z90.12 Acquired absence of left breast and nipple; Z99.81 Dependence on supplemental oxygen
CPT/HCPCS: 36410; 36415; 71045; 71275; 76937; 80048; 80053; 83605; 83735; 83880; 83930; 84484; 85025; 85379; 85610; 85730; 87502; 93005; 93306; 93970; 94640; 94760; 96365; 96375; 96376; 99291